=== PATIENT | female | born 1945 | race Caucasian/White ===

== ENCOUNTER 2017-04-02 07:50 | Inpatient (IN) | payer MEDICARE, SELFPAY ==
[2017-04-02] VITALS (15 sets, daily range): BP systolic 105–165; BP diastolic 44–73; PULSE 68–99; RESP 15–22; TEMP 37.2–38.1; O2SAT 88–98; BMI 31.2; BMI 32.3; BMI 32.4
--- NOTE | 2017-04-02 08:03 | EKG12_ITS ---
Test Reason : COLD S/SX Blood Pressure : / mmHG Vent. Rate : 092 BPM Atrial Rate : 092 BPM P-R Int : 158 ms QRS Dur : 088 ms QT Int : 364 ms P-R-T Axes : 036 -48 069 degrees QTc Int : 450 ms Normal sinus rhythm Left anterior fascicular block Inferior infarct , age undetermined Poor R wave progression Abnormal ECG Confirmed by EMILY RABAGO, CHANCE ([id number]), newspaper copy editor GABRIELLA BINGHAM ([id number]) on 04/03/2017 9:47:58 AM Referred By: SHOLA Confirmed By:CHANCE DIAZ MD
--- NOTE | 2017-04-02 08:03 | RAD_ITS ---
STUDY: X-RAY CHEST REASON FOR EXAM: Female, 71 years old. Fever and productive cough. TECHNIQUE: Single AP portable view of the chest. COMPARISON: Comparison is made with prior study dated July 25, 2011. FINDINGS: EKG electrodes are seen. The lungs are clear and expanded. Scattered calcified granulomas. There is no demonstrated pleural abnormality. Normal size heart. Normal mediastinum and lynsey. Normal visualized pulmonary arteries. There is atherosclerotic calcification of the aortic arch with tortuosity. Normal visualized thoracic spine. Normal visualized ribs, clavicles, and shoulders. There is no demonstrated abnormality of the visualized soft tissue structures of the upper abdomen. RAD/Chest 1 View (Portable) IMPRESSION: Normal x-ray examination of the chest. Electronically Signed: Nawaf Samayoa MD at 8:47 EST Tel [phone], Service support ,
--- NOTE | 2017-04-02 08:28 | ED.VISSUMM ---
- ER Visit Summary Date of Service: 04/02/17 Chief Complaint: Flulike symptoms that started History of Present Illness: The patient is a 71 F who presents because of increased shortness of breath since yesterday. She states she had flulike symptoms that started . She did not get a Pneumovax or influenza vaccine this year. She states she has not had time to see her doctor. She is a former smoker. She complained of headache, runny nose, nonproductive cough, shortness of breath initially. She states she felt better yesterday, Sunday. Today she states she feels worse and is coughing up green cade sputum. She complains of shortness of breath at rest and increased shortness of breath with activity. She does complain of subjective fever with chills. She does report headache and the headache is worse with coughing. She still complains of nasal congestion. She denies any leg pain, swelling or discoloration. She has no history of PE or DVT and denies any risk factors. Physical Examination: Vital signs remarkable for blood pressure 105/44, which is low for patient. Heart rates 99 with a temperature of 100.5. She appears ill. She is tachypnic. Head is atraumatic normocephalic. Pupils are equal round reactive. Extraocular muscles are intact. TMs are pearly white with landmarks noted. Nares patent with no drainage. Posterior pharynx without erythema or exudate. Uvula is midline. There is no dysphonia or dysphasia. Trachea is midline. There is no stridor with auscultation of the neck. Heart is rapid and regular without murmur, gallop or rub. Lungs are remarkable for diminished breath sounds bilaterally with rales at the bases more so right than left. Abdomen is soft nontender. Is no palpable subtle mass abdominal bruit. Lower extremity exam reveals no swelling or discoloration. DP pulses palpable bilaterally. Neuro exam is nonfocal. Test Results: EKG reveals a sinus rhythm rate of 92 with a left anterior fascicular block and decreased anterior force. Portable chest x-ray reveals normal cardiac silhouette and minimal chronic changes with no widening the mediastinum or perihilar lymphadenopathy. White count is 8.5 thousand with 84 segs no bands 8 lymphs. BMP is marked for glucose 138. Hepatic profile is unremarkable. Lactate elevated 2.7. Emergency Department Course and Treatment: Evaluate patient's symptoms who has multiple medical problems a EKG was obtained to rule out acute ischemia, chest x-ray to evaluate for pneumonia and appropriate blood work to assess for severe sepsis. And she is febrile she received acetaminophen p.o. Treatment Plan: This informed me that patient's pulse ox dropped 80% on room air at rest. Her influenza screen returned negative. Therefore, she was treated with levofloxacin and hospitalist was called for admission to the hospital Disposition: Mid hospital will discuss placement suggest PCU Impression: 1. Acute respiratory infection with hypoxia (respiratory failure) 2. Lactic acidosis, 2.7 3. Hypotension initially in patient with history of hypertension 4. History of CVA 5. History of hypercholesterolemia This note was generated with [employer] dictation software. It may contain incorrect words, spelling, and punctuation that were not noted in review of the chart prior to signing ED Disposition - Plan for ED Patient: Chief Complaint: Cold Sx Referrals: Agus Malik MD [Primary Care Provider] -
[2017-04-02] MEDS: Acetaminophen 500 MG Tablet PO (08:40)
[2017-04-02 08:49] LABS: Absolute Lymphocyte Count 0.65 X10^3/ul (0.83-4.51); Absolute Neutrophil Count 7.1 X10^3/uL (2.0-7.7); Basophil# 0.02 X10^3/uL; Basophil% 0.2 % (0-1); Hematocrit 37.9 % (37-47); Hemoglobin 12.6 g/dl (12.0-15.0); Lymphocyte # 0.65 X10^3/ul (4.0); Lymphocyte % 7.7 % (19-41); Mean Corp Hgb Conc 33.2 g/gl (32-36); Mean Corpuscular Volume 93.3 fL (81-99); Mean Platelet Vol. 9.3 fl (6.2-12.0); Monocyte# 0.72 X10^3/uL; Monocyte% 8.5 % (0-10); Neutrophil # 7.07 X10^3/uL (2.7-7.7); Neutrophil % 83.5 % (47-70); Platelet Count 320 K/mm3 (150-450); RBC Distribution Width CV 13.8 % (11.6-14.6); RBC Distribution Width SD 45.7 fl (35.1-43.9); Red Blood Count 4.06 M/mm3 (4.2-5.4); White Blood Count 8.5 K/mm3 (4.4-11.0)
[2017-04-02 08:57] LABS: POSITIVE COUNT NO; POSITIVE DIFFERENTIAL NO; POSITIVE MORPHOLOGY NO
[2017-04-02 08:59] LABS: ALB/GLOB Ratio 0.8 RATIO (0.9-2.4); AST(SGOT) 28 U/L (15-37); Alanine Aminotransfer ALT/SGPT 23 U/L (13-56); Albumin, Serum 3.6 g/dL (3.2-5.0); Alkaline Phosphatase 85 U/L (45-117); Anion Gap 8 (5-15); BUN 14 mg/dL (7-18); BUN/Creat Ratio 15.9 RATIO (10-20); Calcium,Total 8.9 mg/dL (8.5-10.1); Chloride 106 mmol/L (98-107); Creatinine, Serum 0.88 mg/dL (0.55-1.02); EST Glomerular Filtration Rate 67 mL/min (>60); Est Glom Filt Rate - Afr Amer 81 mL/min (>60); Estimated Creatinine Clearance 41.51 ml/min; Globulin 4.6 g/dL (2.2-4.2); Glucose 138 mg/dL (74-106); Potassium 3.9 mmol/L (3.5-5.1); Protein, Total 8.2 g/dL (6.4-8.2); Sodium Level 138 mmol/L (136-145)
[2017-04-02 09:23] LABS: Lactic Acid 2.7 mmol/L (0.4-2.0)
--- NOTE | 2017-04-02 09:25 | ED.RN ---
PT PLACED ON 2L NC FOR LOW O2 SAT AT REST. O2 IS 93 AT THIS TIME.
[2017-04-02] MEDS: 0.9% Normal Saline 1,000 ML 250 ML IV ×4 (09:49→21:44)
[2017-04-02 09:56] LABS: International Normalized Ratio 1.1; Prothrombin Time (Protime)PT. 13.3 SECONDS (11.7-14.9)
[2017-04-02 09:57] LABS: Partial Thromboplast Time 32.5 Seconds (24.1-36.2)
[2017-04-02 12:21] LABS: Bacteria 0 SEEN /hpf (None Seen); Mucous, Urine 0 SEEN /hpf (<or=2+); Red Blood Cells-Urine 0 SEEN /hpf (0-5); White Blood Cells 0 SEEN /hpf (0-5)
[2017-04-02 12:24] LABS: Color, Urine Yellow (Yellow); Glucose, Dipstick 50 mg/dl (Normal); Ketone-Dipstick Negative (Negative); Leukocyte Esterase-Dipstick Negative /ul (Negative); Nitrite-Dipstick Negative (Negative); Occult Blood-Urine Negative /ul (Negative); Protein-Dipstick 30 mg/dl (Negative); Specific Gravity, Urine 1.015 (1.002-1.030); Urine Bilirubin Dipstick Negative (Negative); Urine Clarity Clear (Clear); Urine Urobilinogen Normal (Normal)
--- NOTE | 2017-04-02 12:29 | PCM.PN.HOSP ---
Vitals/I&O's: Vital Signs Temp Pulse Resp BP Pulse Ox 99.2 F H 94 18 113/67 97 04/02/17 11:19 04/02/17 11:19 04/02/17 11:19 04/02/17 11:19 04/02/17 11:19 Oxygen Flow Rate 2 Oxygen Delivery Method Nasal Cannula Weight: 75.16 kg Body Mass Index (BMI) 32.3 Laboratory Results 04/02/17 11:58: Urine Color Pending, Urine Clarity Pending, Urine pH Pending, Ur Specific [place] Pending, Urine Protein Pending, Urine Glucose (UA) Pending, Urine Ketones Pending, Urine Occult Blood Pending, Urine Nitrite Pending, Urine Bilirubin Pending, Urine Urobilinogen Pending, Ur Leukocyte Esterase Pending, Urine RBC Pending, Urine WBC Pending, Ur Squamous Epith Cells Pending, Urine Bacteria Pending, Urine Mucus Pending Current Medications Enoxaparin Sodium (Lovenox) 40 mg SC DAILY@1000 JOHANA Sodium Chloride () 1,000 mls @ 250 mls/hr IV .Q4H [facility] Last Admin: 04/02/17 09:49 Dose: 250 mls/hr Influenza Virus Vaccine Quadrival (Fluarix/Fluzone) 0.5 ml IM .ONCE ONE Stop: 04/03/17 10:01 Magnesium Hydroxide (Milk Of Magnesia) 30 ml PO DAILY PRN PRN PRN Reason: Constipation
[2017-04-02 12:37] LABS: Reflex Lactate? Y
[2017-04-02 12:46] LABS: Squamous Epithelial Cells - UA 0-5 SEEN /hpf (5-10)
--- NOTE | 2017-04-02 12:46 | PCM.HP.STD ---
Problem List (1) Bronchitis Status: Acute (2) Acute respiratory failure Status: Acute (3) Hypertension Status: Chronic (4) Dyslipidemia Status: Acute History of Present Illness Date of Admission: 04/02/17 Chief Complaint: Nasal congestion, cough, shortness of breath The patient is a 71 year old F who presented to the emergency room due to prior upper respiratory tract symptoms for the past 4 days and now she has significant cough, shortness of breath or and wheezing. In the emergency room she was noted to be hypoxic, chest x-ray did not showed no pneumonia, her rapid influenza a and B were negative . She was placed on bronchodilators and IV steroids and we are placing her in the hospital for further management. When I saw her in the ED she was alert and oriented to time place and person and she did appear to be in mild to moderate distress, she is nontoxic appearing. Past Medical History Past Medical History (Chronic Problems): Chronic Problems Hypertension (Chronic) Allergies ibuprofen Adverse Reaction (Verified 04/02/17 07:53) Nausea Home Medications: Ambulatory Orders Medication Instructions Recorded Citalopram Hydrobromide 20 mg PO DAILY 04/02/17 [Citalopram HBr] Lisinopril [Zestril] 5 mg PO DAILY 04/02/17 Multivit-Min/Iron/Folic/Lutein 1 each PO DAILY 04/02/17 [Centrum Silver Women Tablet] Simvastatin [Zocor] 40 mg PO DAILY 04/02/17 Smoking Status: Former smoker Review of Systems Comment: All Systems were reviewed with pertinent positives mentioned in the HPI above. VTE Information - Inpt Only VTE Present on Admission: No VTE Mechan Device Prophylaxis: SCD's VTE Pharm Prophylaxis ordered?: No VTE Suspected: Suspected DVT Patient Problems: Active and Suspected Problems Bronchitis (Acute) Acute respiratory failure (Acute) Dyslipidemia (Acute) - Physical Exam General: Alert, Oriented x3 HEENT: Atraumatic Oral: Moist Mucosa Neck: Supple, No JVD Lungs: Wheezes Cardiovascular: Regular rate, Normal S1, Normal S2 Abdomen: Bowel Sounds Present, Soft, Non Tender, Non-Distended Extremities: No edema Neurological: Cranial nerves II-XII grossly intact, Neuro grossly intact, Motor Exam 5/5 strength throughout Psych/Mental Status: Normal Affect Vital Signs Temp Pulse Resp BP Pulse Ox 99.2 F H 68 18 113/67 97 04/02/17 11:19 04/02/17 11:40 04/02/17 11:19 04/02/17 11:19 04/02/17 11:40 Oxygen Flow Rate 2 Oxygen Delivery Method Nasal Cannula Weight: 75.16 kg Body Mass Index (BMI) 32.3 Laboratory Tests Past 24 Hrs 04/02/17 11:58 Urine Color Yellow Urine Clarity Clear Urine pH 5.0 Ur Specific [place] 1.015 Urine Protein 30 H Urine Glucose (UA) 50 H Urine Ketones Negative Urine Occult Blood Negative Urine Nitrite Negative Urine Bilirubin Negative Urine Urobilinogen Normal Ur Leukocyte Esterase Negative Urine RBC 0 SEEN Urine WBC 0 SEEN Ur Squamous Epith Cells 0-5 SEEN Urine Bacteria 0 SEEN Urine Mucus 0 SEEN Assessment/Plan Active and Suspected Problems Bronchitis (Acute) Acute respiratory failure (Acute) Dyslipidemia (Acute) 1. Acute respiratory failure with hypoxia; continue on supplemental oxygen and wean as tolerated. 2. Acute bronchitis; if need to have rapid influenza a and B tests are negative, her signs and symptoms are consistent with possible influenza infection, we will place her on Tamiflu and obtain respiratory sample for further influenza studies. We will place her on Bronchodilators, IV steroids and oral antibiotics. 3. Lactic acidosis; this is from her hypoxic status rather than from sepsis. 4. Essential hypertension; the patient is trending hypotensive at this time and will hold off on her antihypertensive agents. 5. DVT Prophylaxis with Lovenox. Code Visit Inpatient E&M: 71941 Init Hosp L3
[2017-04-02 13:25] LABS: Lactic Acid 1.4 mmol/L (0.4-2.0)
[2017-04-02] MEDS: MethylPREDNISolone 125 MG/2 ML Vial 60 MG IV ×2 (15:30→21:36)
[2017-04-02] MEDS: Oseltamivir Phosphate 30 MG Capsule PO ×2 (15:30→21:36)
[2017-04-02 16:44] LABS: Lactic Acid 0.7 mmol/L (0.4-2.0)
[2017-04-02] MEDS: Acetaminophen 325 MG Tablet 650 MG PO (18:05)
[2017-04-02] MEDS: Atorvastatin Calcium 20 MG Tablet PO (21:36)
[2017-04-03] VITALS (8 sets, daily range): BP systolic 136–141; BP diastolic 71–76; PULSE 70–88; RESP 18–20; TEMP 36.4–36.8; O2SAT 90–97
[2017-04-03] MEDS: 0.9% Normal Saline 1,000 ML 250 ML IV (02:25)
[2017-04-03] MEDS: Acetaminophen 325 MG Tablet 650 MG PO (03:04)
[2017-04-03] MEDS: MethylPREDNISolone 125 MG/2 ML Vial 60 MG IV (06:21)
[2017-04-03 06:59] LABS: Absolute Lymphocyte Count 1.19 X10^3/ul (0.83-4.51); Absolute Neutrophil Count 8.8 X10^3/uL (2.0-7.7); Basophil# 0.03 X10^3/uL; Basophil% 0.3 % (0-1); Hematocrit 32.4 % (37-47); Hemoglobin 10.6 g/dl (12.0-15.0); Lymphocyte # 1.19 X10^3/ul (4.0); Lymphocyte % 11.5 % (19-41); Mean Corp Hgb Conc 32.7 g/gl (32-36); Mean Corpuscular Hgb 30.3 pg (27.0-32.0); Mean Corpuscular Volume 92.6 fL (81-99); Mean Platelet Vol. 9.9 fl (6.2-12.0); Monocyte# 0.33 X10^3/uL; Monocyte% 3.2 % (0-10); Neutrophil # 8.82 X10^3/uL (2.7-7.7); Neutrophil % 84.9 % (47-70); POSITIVE COUNT NO; POSITIVE DIFFERENTIAL NO; Platelet Count 259 K/mm3 (150-450); RBC Distribution Width CV 13.7 % (11.6-14.6); White Blood Count 10.4 K/mm3 (4.4-11.0)
[2017-04-03 07:15] LABS: Anion Gap 8 (5-15); BUN 11 mg/dL (7-18); BUN/Creat Ratio 20.7 RATIO (10-20); Calcium,Total 8.3 mg/dL (8.5-10.1); Chloride 112 mmol/L (98-107); Creatinine, Serum 0.53 mg/dL (0.55-1.02); EST Glomerular Filtration Rate 120 mL/min (>60); Est Glom Filt Rate - Afr Amer 145 mL/min (>60); Estimated Creatinine Clearance 36.53 ml/min; Glucose 142 mg/dL (74-106); Potassium 3.7 mmol/L (3.5-5.1); Sodium Level 142 mmol/L (136-145)
--- NOTE | 2017-04-03 09:19 | PCM.DC ---
- Discharge Diagnoses Current Active Problems: Current Active and Chronic Problems Bronchitis (Acute) Acute respiratory failure (Acute) Hypertension (Chronic) Dyslipidemia (Acute) You will use the following diet at home:: Regular Discharge Activity: Return to Normal Activity Allergies/Adverse Reactions: Allergies ibuprofen Adverse Reaction (Verified 04/02/17 07:53) Nausea Medications to take at Discharge Citalopram Hydrobromide [Citalopram HBr] 20 mg PO DAILY 04/02/17 Lisinopril [Zestril] 5 mg PO DAILY 04/02/17 Multivit-Min/Iron/Folic/Lutein [Centrum Silver Women Tablet] 1 each PO DAILY 04/02/17 Simvastatin [Zocor] 40 mg PO DAILY 04/02/17 Levofloxacin [Levaquin] 750 mg PO Q48 #3 tab 04/03/17 Prednisone [Deltasone] 40 mg PO DAILY #5 tab 04/03/17 The following prescriptions were given: Levofloxacin [Levaquin] 750 mg PO Q48 #3 tab Prednisone [Deltasone] 40 mg PO DAILY #5 tab Primary Care Physician: Agus Malik MD [Primary Care Provider] - Proposed Discharge Date: 04/03/17
--- NOTE | 2017-04-03 09:20 | DS.PCM_ITS ---
Discharge Date and Diagnosis Date of Admission: 04/02/17 Date of Discharge: 04/03/17 - Primary Discharge Diagnosis Active and Suspected Problems Bronchitis (Acute) Acute respiratory failure (Acute) Dyslipidemia (Acute) - Secondary Discharge Diagnosis Chronic Problems Hypertension (Chronic) Hospital Course and Treatment Summary of Care Provided: The patient is a 71 year old F who presented to the emergency room due to prior upper respiratory tract symptoms for the past 4 days and now she has significant cough, shortness of breath or and wheezing. In the emergency room she was noted to be hypoxic, chest x-ray did not showed no pneumonia, her rapid influenza a and B were negative . She was placed on bronchodilators and IV steroids and we are placing her in the hospital for further management. She was started on Tamiflu for empiric Influenza therapy and respiratory panel sent and showed human [place] virus. Patient improved significantly within 24 hours he was transitioned to oral antibiotic and prednisone and discharged home in a stable condition. She was recommended to follow with the primary care doctor in 1-2 weeks. On exam at the time of discharge; vital signs were stable. He was alert and oriented to time place and person. He did not appear to be any form of distress. S1 and S2 heard no murmur or gallop Lung exam was clear to auscultation with no adventitious sounds. Abdomen was soft nontender with normal bowel sounds. extremity exam did not reveal any edema, palpable pulses bilaterally. Neurologic exam was grossly intact. Discharge Diet: No Restrictions Discharge Activity: Return to Normal Activity Home Medications: Medications to take at Discharge Citalopram Hydrobromide [Citalopram HBr] 20 mg PO DAILY 04/02/17 Lisinopril [Zestril] 5 mg PO DAILY 04/02/17 Multivit-Min/Iron/Folic/Lutein [Centrum Silver Women Tablet] 1 each PO DAILY 07/13 Simvastatin [Zocor] 40 mg PO DAILY 04/02/17 Levofloxacin [Levaquin] 750 mg PO Q48 #3 tab 04/03/17 Prednisone [Deltasone] 40 mg PO DAILY #5 tab 04/03/17 Following Prescrptions Were Given to Patient: Levofloxacin [Levaquin] 750 mg PO Q48 #3 tab Prednisone [Deltasone] 40 mg PO DAILY #5 tab Primary Care Physician: Agus Malik MD [Primary Care Provider] - Disposition: Home Patient Condition:: Good Meaningful Use Info Meaningful Use Diagnoses (Choose all that apply): None applicable
[2017-04-03] MEDS: Lisinopril 5 MG Tablet PO (10:16)
[2017-04-03] MEDS: Oseltamivir Phosphate 30 MG Capsule PO (10:16)
[2017-04-03] MEDS: Citalopram 20 MG Tablet PO (10:16)
--- NOTE | 2017-04-03 10:43 | CASEMGMT ---
RN SIMÓN Face to Face with patient for initial transition planning/care coordination assessment. RN CM introduced self and role at [facility]. Patient sitting in chair, alert and oriented. Patient willing to participate in assessment and is able to answer all questions appropriately. Care providers, pharmacy, and demographics verified. See link attached. Patient wishes to discharge home, denies need for home health at this time. Patient states she has no further needs or concerns at this time. CM to follow for discharge planning needs that may arise. Disposition Plan: Patient to discharge home with family support and follow-up plans in place
== END 2017-04-03 17:27 | disposition home or self-care (01) | DRG 202 ==
LOC: ED 08:13 → MS3 10:29
PROVIDERS: Admitting Provider Internal Medicine; Emergency Provider Emergency Medicine; Family Provider Family Medicine; PCP Family Medicine; Visit Provider Internal Medicine
DX: J20.9 Acute bronchitis, unspecified (principal); J96.01 Acute respiratory failure with hypoxia; E87.2 Acidosis; Z87.891 Personal history of nicotine dependence; E78.5 Hyperlipidemia, unspecified; I10 Essential (primary) hypertension; Z23 Encounter for immunization
CPT/HCPCS: 36415; 71045; 80048; 80053; 81001; 83605; 85025; 85610; 85730; 87040; 87086; 87088; 87633; 87804; 93005; 99285; J7030; J7040; J7050; 90686; A4216

== ENCOUNTER → 2017-04-12 11:28 | Outpatient (CLI) | payer MEDICARE, SELFPAY ==
[2017-04-12 12:11] LABS: Absolute Lymphocyte Count 2.58 X10^3/ul (0.83-4.51); Absolute Neutrophil Count 5.9 X10^3/uL (2.0-7.7); Basophil# 0.01 X10^3/uL; Basophil% 0.1 % (0-1); Eosinophil# 0.16 X10^3/uL; Eosinophils% 1.7 % (0-5); Hematocrit 37.1 % (37-47); Hemoglobin 12.4 g/dl (12.0-15.0); Lymphocyte # 2.58 X10^3/ul (4.0); Lymphocyte % 27.1 % (19-41); Mean Corp Hgb Conc 33.4 g/gl (32-36); Mean Corpuscular Volume 92.8 fL (81-99); Mean Platelet Vol. 9.2 fl (6.2-12.0); Monocyte# 0.81 X10^3/uL; Monocyte% 8.5 % (0-10); Neutrophil # 5.92 X10^3/uL (2.7-7.7); Neutrophil % 62.1 % (47-70); Platelet Count 375 K/mm3 (150-450); RBC Distribution Width CV 14.3 % (11.6-14.6); RBC Distribution Width SD 47.2 fl (35.1-43.9); White Blood Count 9.5 K/mm3 (4.4-11.0)
[2017-04-12 12:15] LABS: POSITIVE COUNT NO; POSITIVE DIFFERENTIAL NO; POSITIVE MORPHOLOGY NO
[2017-04-12 12:39] LABS: Anion Gap 5 (5-15); BUN 20 mg/dL (7-18); Calcium,Total 9.2 mg/dL (8.5-10.1); Chloride 106 mmol/L (98-107); Creatinine, Serum 0.65 mg/dL (0.55-1.02); EST Glomerular Filtration Rate 96 mL/min (>60); Est Glom Filt Rate - Afr Amer 116 mL/min (>60); Glucose 89 mg/dL (74-106); Potassium 4.1 mmol/L (3.5-5.1); Sodium Level 140 mmol/L (136-145)
== END ==
PROVIDERS: Family Provider Family Medicine; PCP Family Medicine; Visit Provider Family Medicine
DX: Z01.818 Encounter for other preprocedural examination (principal)
CPT/HCPCS: 36415; 80048; 85025

== ENCOUNTER 2017-05-03 18:07 | Observation (INO) | payer MEDICARE, SELFPAY ==
[2017-05-03 18:08] VITALS: BP 113/76; PULSE 97; RESP 16; TEMP 36.3; O2SAT 98; BMI 48.8
[2017-05-03] MEDS: Ondansetron 4 MG/2 ML Vial IV (19:00)
[2017-05-03 19:07] LABS: Absolute Lymphocyte Count 3.14 X10^3/ul (0.83-4.51); Absolute Neutrophil Count 4.1 X10^3/uL (2.0-7.7); Basophil# 0.02 X10^3/uL; Basophil% 0.2 % (0-1); Eosinophils% 2.4 % (0-5); Hematocrit 28.6 % (37-47); Hemoglobin 9.2 g/dl (12.0-15.0); Lymphocyte # 3.14 X10^3/ul (4.0); Lymphocyte % 37.8 % (19-41); Mean Corp Hgb Conc 32.2 g/gl (32-36); Mean Corpuscular Hgb 30.5 pg (27.0-32.0); Mean Corpuscular Volume 94.7 fL (81-99); Mean Platelet Vol. 8.3 fl (6.2-12.0); Monocyte# 0.81 X10^3/uL; Monocyte% 9.7 % (0-10); Neutrophil # 4.06 X10^3/uL (2.7-7.7); Neutrophil % 48.9 % (47-70); Platelet Count 420 K/mm3 (150-450); RBC Distribution Width CV 14.1 % (11.6-14.6); RBC Distribution Width SD 48.4 fl (35.1-43.9); Red Blood Count 3.02 M/mm3 (4.2-5.4); White Blood Count 8.3 K/mm3 (4.4-11.0)
[2017-05-03 19:08] LABS: POSITIVE COUNT NO; POSITIVE DIFFERENTIAL NO; POSITIVE MORPHOLOGY NO
--- NOTE | 2017-05-03 19:09 | ED.VISSUMM ---
- ER Visit Summary Date of Service: 05/03/17 Chief Complaint: [] Postop left hip replacement unable to rehab at home intractable pain History of Present Illness: The patient is a 71 F [] patient had left hip replacement surgery recently she was supposed to rehab at home discharged directly after surgery, since that she has been unable to rehab at home due to intractable pain she cannot walk on her own, she spoke with her orthopedic surgeons at [facility] and was told to come to the emergency department for admission and fpc placement for rehab. The patient's had no fever no cough no trauma she simply states she cannot move her leg she cannot do much she is almost carried to the commode by family due to the pain Physical Examination: [] Is resting in the bed she is in no distress she cannot move the hip as she when she does she has pain head neck unremarkable lungs sound clear the abdomen soft nontender the left hip incision is intact there is no warmth drainage or signs of infection she has moderate to severe pain with any type of range of motion to the hip she can barely lift her foot off the bed and has to fall right down back to the bed she has minimal flexion at the knee any type of movement of the hip left causes pain neurovascular exam to the lower extremity bilaterally is normal pulses sensation cap refill she can dorsi and plantarflex both ankles the right lower legs unremarkable Test Results: [] Emergency Department Course and Treatment: [] And on different pain medicines she was allergic to Percocet was put on [place] with really little relief she has no one at home to help her rehab she is failed outpatient therapy at this time screening labs are obtained x-rays will contact the hospitalist for admission for further management Treatment Plan: [] Disposition: [] Admits stable Impression: [] Status post left hip replacement, intractable pain, failed outpatient management, This note was generated with [employer] dictation software. It may contain incorrect words, spelling, and punctuation that were not noted in review of the chart prior to signing ED Disposition - Plan for ED Patient: Chief Complaint: Lower Extremity Injury Referrals: Agus Malik MD [Primary Care Provider] -
--- NOTE | 2017-05-03 19:20 | RAD_ITS ---
STUDY: X-RAY - PELVIS AND LEFT HIP REASON FOR EXAM: Female, 71 years old. Postop pain TECHNIQUE: Radiological exam, hip, unilateral, with pelvis when performed; 2 or 3 views. COMPARISON: 10/04/2016 FINDINGS: The patient is status post left arthroplasty. The hardware is intact and alignment is satisfactory. There is lucency in the greater trochanter, consistent with a nondisplaced fracture. This appears subacute in nature. Comparison with any recent prior examinations is recommended. The remainder of the visualized osseous structures are intact. RAD/Hip Min 2 Views (Portable) IMPRESSION: Left hip arthroplasty with intact hardware and satisfactory alignment. Nondisplaced fracture of the greater trochanter which appears subacute. Correlation with any recent prior examinations is recommended. Electronically Signed: Vishal Mcdaniel, at 20:18 EST Tel , Service support ,
[2017-05-03 19:28] LABS: Anion Gap 8 (5-15); BUN 16 mg/dL (7-18); BUN/Creat Ratio 21.2 RATIO (10-20); Calcium,Total 8.7 mg/dL (8.5-10.1); Chloride 104 mmol/L (98-107); Creatinine, Serum 0.76 mg/dL (0.55-1.02); EST Glomerular Filtration Rate 80 mL/min (>60); Est Glom Filt Rate - Afr Amer 97 mL/min (>60); Estimated Creatinine Clearance 36.53 ml/min; Glucose 124 mg/dL (74-106); Potassium 3.9 mmol/L (3.5-5.1); Sodium Level 140 mmol/L (136-145)
[2017-05-03 20:29] VITALS: BP 146/75; PULSE 78; RESP 16; O2SAT 97
[2017-05-03 20:48] LABS: Bacteria 0 SEEN /hpf (None Seen); Red Blood Cells-Urine 0 SEEN /hpf (0-5)
[2017-05-03 21:30] LABS: Color, Urine Yellow (Yellow); Glucose, Dipstick Normal (Normal); Ketone-Dipstick Negative (Negative); Leukocyte Esterase-Dipstick 25 /ul (Negative); Nitrite-Dipstick Negative (Negative); Occult Blood-Urine Negative /ul (Negative); Protein-Dipstick Negative (Negative); Specific Gravity, Urine 1.015 (1.002-1.030); Urine Bilirubin Dipstick Negative (Negative); Urine Clarity Clear (Clear); Urine Urobilinogen 1 mg/dl (Normal)
[2017-05-03 21:54] LABS: Hyaline Cast 0-5 SEEN /lpf (0-5)
[2017-05-03 21:55] LABS: Squamous Epithelial Cells - UA 0-5 SEEN /hpf (5-10)
[2017-05-03 21:56] LABS: White Blood Cells 0-5 SEEN /hpf (0-5)
[2017-05-03 21:57] LABS: Mucous, Urine 4+ /hpf (<or=2+)
[2017-05-03 22:01] VITALS: BP 108/71; PULSE 78; RESP 16; O2SAT 98
[2017-05-03 22:14] VITALS: BP 108/71; PULSE 78; RESP 16; O2SAT 98
--- NOTE | 2017-05-03 22:27 | PCM.HP.STD ---
Problem List (1) Intractable left hip pain Status: Acute (2) Status post total hip replacement, left Status: Acute (3) Depression Status: Chronic (4) Dyslipidemia Status: Chronic (5) Hypertension Status: Chronic History of Present Illness Date of Admission: 05/03/17 Chief Complaint: Left hip pain, debility. The patient is a 71 year old F with past medical history as mentioned above who underwent total hip replacement on April 24, 2017 at [facility] presented to the emergency room because of intractable left hip pain with weakness and debility. Since she had her surgery, she has been having left hip pain, dull aching pain, 6-7 out of 10 in severity, not radiating, aggravated by standing and walking, relieved by rest and no associated symptoms. She was discharged from the [facility] on Percocet for pain control but she had an allergic reaction to. She continued to have intractable left hip pain and she went to her PCPs office who prescribed Vicodin for her which seemed to be working. Patient lives at home and she mentioned that she has not been able to ambulate with a walker because of the intractable left hip pain. She is not able to take care of herself and she mentioned that her pain is not well controlled. She denies fever or chills. She denied trauma or mechanical fall. When I examined her left leg, she complained of minimal pain on the left calf. in the emergency room, her vital signs were stable. Her routine blood work was remarkable for hemoglobin of 9.2 g/dL, otherwise normal. Urinalysis showed no evidence of UTI. X-ray of the left hip revealed intact left hip arthroplasty nondisplaced fracture of the greater trochanter which could be subacute. She is being admitted for intractable left hip pain, probable subacute nondisplaced fracture of the greater trochanter and anemia. Past Medical History Past Medical History (Chronic Problems): Chronic Problems Depression (Chronic) Dyslipidemia (Chronic) Hypertension (Chronic) Allergies ibuprofen Adverse Reaction (Verified 04/02/17 07:53) Nausea PERCOCET Allergy (Uncoded 05/03/17 18:08) Anaphylaxis Home Medications: Ambulatory Orders Medication Instructions Recorded Citalopram Hydrobromide 20 mg PO DAILY 04/02/17 [Citalopram HBr] Lisinopril [Zestril] 5 mg PO DAILY 04/02/17 Multivit-Min/Iron/Folic/Lutein 1 each PO DAILY 04/02/17 [Centrum Silver Women Tablet] Simvastatin [Zocor] 40 mg PO DAILY 04/02/17 Nystatin 5 ml PO 4X/DAY 05/03/17 Pantoprazole Sodium [Protonix] 40 mg PO DAILY 05/03/17 Surgical History: total hip arthroplasty Psychiatric History: No pertinent psych hx Lives: With Family Smoking Status: Former smoker Alcohol: None Drugs: None - *Family History Maternal History Items: No pertinent history Paternal History Items: No pertinent history Review of Systems Constitutional: Reports: Weakness. Denies: Anorexia, Chills, Fever Eyes: Denies: Blurred vision, Double vision, Drainage, Redness HEENT: Denies: Difficulty Hearing, Ear Pain, Eye Pain, Nasal bleeding, Sore Throat Cardiovascular: Denies: Chest Pain, Chest Tightness, Edema, Heaviness, Palpitations, Paroxysmal Noc. Dyspnea, Syncope Respiratory: Denies: Cough, Pleuritic Pain, Shortness of Breath, Sputum production, Wheezing Gastrointestinal: Denies: Abdominal Pain, Diarrhea, Dyspepsia, Nausea, Vomiting Genitourinary: Denies: Dysuria, Frequency, Hematuria Musculoskeletal: Reports: Joint Pain, Leg Pain. Denies: Arm Pain, Back Pain, Foot Pain Skin: Denies: Dryness, Rash Neurological: Denies: Balance problems, Blurred vision, Change in Speech, Slurred speech, Focal weakness, Headaches, Incoordination Psychiatric: Reports: Depression. Denies: Anxiety Endocrine: Denies: Change in Body Habitus, Polydipsia VTE Information - Inpt Only VTE Present on Admission: No VTE Mechan Device Prophylaxis: None VTE Pharm Prophylaxis ordered?: Yes Patient Problems: Active and Suspected Problems Intractable left hip pain (Acute) Status post total hip replacement, left (Acute) - Physical Exam General: Alert, Oriented x3, Cooperative, No apparent distress HEENT: Atraumatic, PERRLA, EOMI Oral: Moist Mucosa, No Gingival or Mucosal Lesions/ Ulcerations Neck: Supple, No JVD, Negative Carotid Bruits, Trachea Midline, Thyroid Normal Size and Texture Lungs: Clear to auscultation, No rhonchi, No wheeze, No rales, Diminished Cardiovascular: Regular rate, Regular Rhythm, Normal S1, Normal S2, No murmurs, PMI Normal Abdomen: Bowel Sounds Present, Soft, Non Tender, Non-Distended, No Hepato-splenomegaly Extremities: No clubbing, No cyanosis, No edema Skin: No rashes, No breakdown Musculoskeletal: No Tenderness to Palpation of Joints or Extremities Lymphatic: No Cervical, Supraclavicular, or Inguinal Adenopathy Neurological: Cranial nerves II-XII grossly intact, Motor Exam 5/5 strength throughout Psych/Mental Status: Normal Affect, Appropriate, Alert and oriented to time, place, person, mood and affect Vital Signs Temp Pulse Resp BP Pulse Ox 97.3 F L 78 16 108/71 98 05/03/17 18:08 05/03/17 22:14 05/03/17 22:14 05/03/17 22:14 05/03/17 22:14 Laboratory Tests 05/03/17 05/03/17 05/03/17 Range/Units 20:40 18:50 18:50 WBC 8.3 (4.4-11.0) K/mm3 RBC 3.02 L (4.2-5.4) M/mm3 Hgb 9.2 L (12.0-15.0) g/dl Hct 28.6 L (37-47) % MCV 94.7 (81-99) fL MCH 30.5 (27.0-32.0) pg MCHC 32.2 (32-36) g/gl RDW 14.1 (11.6-14.6) % RDW Differential 48.4 H (35.1-43.9) fl Plt Count 420 (150-450) K/mm3 MPV 8.3 (6.2-12.0) fl Immature Gran % (Auto) 1.000 H (0.0-0.9) % Neut % (Auto) 48.9 (47-70) % Lymph % (Auto) 37.8 (19-41) % [place] % (Auto) 9.7 (0-10) % Eos % (Auto) 2.4 (0-5) % Baso % (Auto) 0.2 (0-1) % Absolute Neuts (auto) 4.1 (2.0-7.7) X10^3/uL Absolute Lymphs (auto) 3.14 (0.83-4.51) X10^3/ul Total Counted Not Reportable Sodium 140 (136-145) mmol/L Potassium 3.9 (3.5-5.1) mmol/L Chloride 104 (98-107) mmol/L Carbon Dioxide 28.0 (21.0-32.0) mmol/L Anion Gap 8 (5-15) BUN 16 (7-18) mg/dL Creatinine 0.76 (0.55-1.02) mg/dL Estim Creat Clear Calc 36.53 ml/min Est GFR (MDRD) Af Amer 97 (>60) mL/min Est GFR (MDRD) Non-Af 80 (>60) mL/min BUN/Creatinine Ratio 21.2 H (10-20) RATIO Glucose 124 H (74-106) mg/dL Calcium 8.7 (8.5-10.1) mg/dL Urine Color Yellow (Yellow) Urine Clarity Clear (Clear) Urine pH 6.0 (5.0 - 8.0) Ur Specific [place] 1.015 (1.002-1.030) Urine Protein Negative (Negative) mg/dl Urine Glucose (UA) Normal (Normal) mg/dl Urine Ketones Negative (Negative) mg/dl Urine Occult Blood Negative (Negative) /ul Urine Nitrite Negative (Negative) Urine Bilirubin Negative (Negative) mg/dL Urine Urobilinogen 1 H (Normal) mg/dl Ur Leukocyte Esterase 25 H (Negative) /ul Urine RBC 0 SEEN (0-5) /hpf Urine WBC 0-5 SEEN (0-5) /hpf Ur Squamous Epith Cells 0-5 SEEN (5-10) /hpf Urine Bacteria 0 SEEN (None Seen) /hpf Hyaline Casts 0-5 SEEN (0-5) /lpf Urine Mucus 4+ (<or=2+) /hpf Clinical Impression(s) from Imaging Studies Hip X-Ray 05/03/17 19:20 IMPRESSION: Left hip arthroplasty with intact hardware and satisfactory alignment. Nondisplaced fracture of the greater trochanter which appears subacute. Correlation with any recent prior examinations is recommended. Electronically Signed: Vishal Mcdaniel, at 20:18 EST Tel , Service support , Assessment/Plan Active and Suspected Problems Intractable left hip pain (Acute) Status post total hip replacement, left (Acute) This is a 71 years old female patient presented to the emergency room because of intractable left hip pain in context of recent history of left hip arthroplasty and she was found to have nondisplaced fracture of the greater trochanter which seemed to be subacute as well as anemia. #1 status post left hip arthroplasty/intractable left hip pain/probable subacute nondisplaced fracture of the greater trochanter: She had left hip arthroplasty on April 24, 2017, had an allergic reaction to Percocet. Later, she was started on Vicodin which seemed working for pain. X-ray of the left hip reviewed, findings noted. Her vital signs are stable. Routine blood work is remarkable for anemia, otherwise normal. Plan: Admit to [facility] floor, Vicodin as needed for pain, IV morphine as needed for pain, bowel regimen with Senokot and milk of magnesia, IV fluids, orthopedic surgery consult, PT OT evaluation and treatment. #2 anemia: This is fairly acute, most recent hemoglobin was from April 12, 2017 and it was 12.4 g/dL. Admission hemoglobin is 9.2 g/dL, likely because of blood loss during surgery. At this time, no evidence of active bleeding. No indication for transfusion. Plan for repeat H&H tomorrow morning. #3 physical debility/functional decline: Patient lives at home, has been having difficulties ambulating because of intractable pain. Plan: PT OT eval and treatment, case management consult, patient probably will need placement to senior care facility. #4 hypertension: Blood pressure stable, continue lisinopril. #5 hyperlipidemia: Continue statins. #6 depression: Continue citalopram. #7 DVT prophylaxis: Subcu Lovenox. This note was generated with Smart Pipe dictation software. It may contain incorrect words, spelling, and punctuation that were not noted in checking the note before signing. Code Visit Inpatient E&M: 91333 Init Hosp L3
--- NOTE | 2017-05-03 22:30 | HP.PCM_ITS ---
Problem List (1) Intractable left hip pain Status: Acute (2) Status post total hip replacement, left Status: Acute (3) Depression Status: Chronic (4) Dyslipidemia Status: Chronic (5) Hypertension Status: Chronic History of Present Illness Date of Admission: 05/03/17 Chief Complaint: Left hip pain, debility. The patient is a 71 year old F with past medical history as mentioned above who underwent total hip replacement on April 24, 2017 at [facility] presented to the emergency room because of intractable left hip pain with weakness and debility. Since she had her surgery, she has been having left hip pain, dull aching pain, 6-7 out of 10 in severity, not radiating, aggravated by standing and walking, relieved by rest and no associated symptoms. She was discharged from the [facility] on Percocet for pain control but she had an allergic reaction to. She continued to have intractable left hip pain and she went to her PCPs office who prescribed Vicodin for her which seemed to be working. Patient lives at home and she mentioned that she has not been able to ambulate with a walker because of the intractable left hip pain. She is not able to take care of herself and she mentioned that her pain is not well controlled. She denies fever or chills. She denied trauma or mechanical fall. When I examined her left leg, she complained of minimal pain on the left calf. in the emergency room, her vital signs were stable. Her routine blood work was remarkable for hemoglobin of 9.2 g/dL, otherwise normal. Urinalysis showed no evidence of UTI. X-ray of the left hip revealed intact left hip arthroplasty nondisplaced fracture of the greater trochanter which could be subacute. She is being admitted for intractable left hip pain, probable subacute nondisplaced fracture of the greater trochanter and anemia. Past Medical History Past Medical History (Chronic Problems): Chronic Problems Depression (Chronic) Dyslipidemia (Chronic) Hypertension (Chronic) Allergies ibuprofen Adverse Reaction (Verified 04/02/17 07:53) Nausea PERCOCET Allergy (Uncoded 05/03/17 18:08) Anaphylaxis Home Medications: Ambulatory Orders Medication Instructions Recorded Citalopram Hydrobromide 20 mg PO DAILY 04/02/17 [Citalopram HBr] Lisinopril [Zestril] 5 mg PO DAILY 04/02/17 Multivit-Min/Iron/Folic/Lutein 1 each PO DAILY 04/02/17 [Centrum Silver Women Tablet] Simvastatin [Zocor] 40 mg PO DAILY 04/02/17 Nystatin 5 ml PO 4X/DAY 05/03/17 Pantoprazole Sodium [Protonix] 40 mg PO DAILY 05/03/17 Surgical History: total hip arthroplasty Psychiatric History: No pertinent psych hx Lives: With Family Smoking Status: Former smoker Alcohol: None Drugs: None - *Family History Maternal History Items: No pertinent history Paternal History Items: No pertinent history Review of Systems Constitutional: Reports: Weakness. Denies: Anorexia, Chills, Fever Eyes: Denies: Blurred vision, Double vision, Drainage, Redness HEENT: Denies: Difficulty Hearing, Ear Pain, Eye Pain, Nasal bleeding, Sore Throat Cardiovascular: Denies: Chest Pain, Chest Tightness, Edema, Heaviness, Palpitations, Paroxysmal Noc. Dyspnea, Syncope Respiratory: Denies: Cough, Pleuritic Pain, Shortness of Breath, Sputum production, Wheezing Gastrointestinal: Denies: Abdominal Pain, Diarrhea, Dyspepsia, Nausea, Vomiting Genitourinary: Denies: Dysuria, Frequency, Hematuria Musculoskeletal: Reports: Joint Pain, Leg Pain. Denies: Arm Pain, Back Pain, Foot Pain Skin: Denies: Dryness, Rash Neurological: Denies: Balance problems, Blurred vision, Change in Speech, Slurred speech, Focal weakness, Headaches, Incoordination Psychiatric: Reports: Depression. Denies: Anxiety Endocrine: Denies: Change in Body Habitus, Polydipsia VTE Information - Inpt Only VTE Present on Admission: No VTE Mechan Device Prophylaxis: None VTE Pharm Prophylaxis ordered?: Yes Patient Problems: Active and Suspected Problems Intractable left hip pain (Acute) Status post total hip replacement, left (Acute) - Physical Exam General: Alert, Oriented x3, Cooperative, No apparent distress HEENT: Atraumatic, PERRLA, EOMI Oral: Moist Mucosa, No Gingival or Mucosal Lesions/ Ulcerations Neck: Supple, No JVD, Negative Carotid Bruits, Trachea Midline, Thyroid Normal Size and Texture Lungs: Clear to auscultation, No rhonchi, No wheeze, No rales, Diminished Cardiovascular: Regular rate, Regular Rhythm, Normal S1, Normal S2, No murmurs, PMI Normal Abdomen: Bowel Sounds Present, Soft, Non Tender, Non-Distended, No Hepato- splenomegaly Extremities: No clubbing, No cyanosis, No edema Skin: No rashes, No breakdown Musculoskeletal: No Tenderness to Palpation of Joints or Extremities Lymphatic: No Cervical, Supraclavicular, or Inguinal Adenopathy Neurological: Cranial nerves II-XII grossly intact, Motor Exam 5/5 strength throughout Psych/Mental Status: Normal Affect, Appropriate, Alert and oriented to time, place, person, mood and affect Vital Signs Temp Pulse Resp BP Pulse Ox 97.3 F L 78 16 108/71 98 05/03/17 18:08 05/03/17 22:14 05/03/17 22:14 05/03/17 22:14 05/03/17 22:14 Laboratory Tests 3 05/03/17 05/03/17 05/03/17 Range/Units 20:40 18:50 18:50 WBC 8.3 (4.4-11.0) K/mm3 RBC 3.02 L (4.2-5.4) M/mm3 Hgb 9.2 L (12.0-15.0) g/dl Hct 28.6 L (37-47) % MCV 94.7 (81-99) fL MCH 30.5 (27.0-32.0) pg MCHC 32.2 (32-36) g/gl RDW 14.1 (11.6-14.6) % RDW Differential 48.4 H (35.1-43.9) fl Plt Count 420 (150-450) K/mm3 MPV 8.3 (6.2-12.0) fl Immature Gran % (Auto) 1.000 H (0.0-0.9) % Neut % (Auto) 48.9 (47-70) % Lymph % (Auto) 37.8 (19-41) % [place] % (Auto) 9.7 (0-10) % Eos % (Auto) 2.4 (0-5) % Baso % (Auto) 0.2 (0-1) % Absolute Neuts (auto) 4.1 (2.0-7.7) X10^3/uL Absolute Lymphs (auto) 3.14 (0.83-4.51) X10^3/ul Total Counted Not Reportable Sodium 140 (136-145) mmol/L Potassium 3.9 (3.5-5.1) mmol/L Chloride 104 (98-107) mmol/L Carbon Dioxide 28.0 (21.0-32.0) mmol/L Anion Gap 8 (5-15) BUN 16 (7-18) mg/dL Creatinine 0.76 (0.55-1.02) mg/dL Estim Creat Clear Calc 36.53 ml/min Est GFR (MDRD) Af Amer 97 (>60) mL/min Est GFR (MDRD) Non-Af 80 (>60) mL/min BUN/Creatinine Ratio 21.2 H (10-20) RATIO Glucose 124 H (74-106) mg/dL Calcium 8.7 (8.5-10.1) mg/dL Urine Color Yellow (Yellow) Urine Clarity Clear (Clear) Urine pH 6.0 (5.0 - 8.0) Ur Specific [place] 1.015 (1.002-1.030) Urine Protein Negative (Negative) mg/dl Urine Glucose (UA) Normal (Normal) mg/dl Urine Ketones Negative (Negative) mg/dl Urine Occult Blood Negative (Negative) /ul Urine Nitrite Negative (Negative) Urine Bilirubin Negative (Negative) mg/dL Urine Urobilinogen 1 H (Normal) mg/dl Ur Leukocyte Esterase 25 H (Negative) /ul Urine RBC 0 SEEN (0-5) /hpf Urine WBC 0-5 SEEN (0-5) /hpf Ur Squamous Epith Cells 0-5 SEEN (5-10) /hpf Urine Bacteria 0 SEEN (None Seen) /hpf Hyaline Casts 0-5 SEEN (0-5) /lpf Urine Mucus 4+ (<or=2+) /hpf Clinical Impression(s) from Imaging Studies Hip X-Ray 05/03/17 19:20 IMPRESSION: Left hip arthroplasty with intact hardware and satisfactory alignment. Nondisplaced fracture of the greater trochanter which appears subacute. Correlation with any recent prior examinations is recommended. Electronically Signed: Vishal Mcdaniel, at 20:18 EST Tel , Service support , Assessment/Plan Active and Suspected Problems Intractable left hip pain (Acute) Status post total hip replacement, left (Acute) This is a 71 years old female patient presented to the emergency room because of intractable left hip pain in context of recent history of left hip arthroplasty and she was found to have nondisplaced fracture of the greater trochanter which seemed to be subacute as well as anemia. #1 status post left hip arthroplasty/intractable left hip pain/probable subacute nondisplaced fracture of the greater trochanter: She had left hip arthroplasty on April 24, 2017, had an allergic reaction to Percocet. Later , she was started on Vicodin which seemed working for pain. X-ray of the left hip reviewed, findings noted. Her vital signs are stable. Routine blood work is remarkable for anemia, otherwise normal. Plan: Admit to [facility] floor, Vicodin as needed for pain, IV morphine as needed for pain, bowel regimen with Senokot and milk of magnesia, IV fluids, orthopedic surgery consult, PT OT evaluation and treatment. #2 anemia: This is fairly acute, most recent hemoglobin was from April 12, 2017 and it was 12.4 g/dL. Admission hemoglobin is 9.2 g/dL, likely because of blood loss during surgery. At this time, no evidence of active bleeding. No indication for transfusion. Plan for repeat H&H tomorrow morning. #3 physical debility/functional decline: Patient lives at home, has been having difficulties ambulating because of intractable pain. Plan: PT OT eval and treatment, case management consult, patient probably will need placement to [facility] facility. #4 hypertension: Blood pressure stable, continue lisinopril. #5 hyperlipidemia: Continue statins. #6 depression: Continue citalopram. #7 DVT prophylaxis: Subcu Lovenox. This note was generated with [employer]ass-[employer] dictation software. It may contain incorrect words, spelling, and punctuation that were not noted in checking the note before signing. Code Visit Inpatient E&M: 06023 Init Hosp L3
--- NOTE | 2017-05-03 23:02 | VDLE_ITS ---
Reason For Study: LEG SWELLING RIGHT LEFT CFV is compressible, spontaneous, phasic, GSV is normal. competent and demonstrates normal CFV is compressible, spontaneous, phasic, augmentation. competent, and demonstrates normal Procedure augmentation. Exam performed portable in patient room. FV is compressible, spontaneous, phasic, LLE SFJ and FV mislabeled as RLE on images. competent and demonstrates normal A preliminary report was called and/or faxed augmentation. to [facility]. POP V is compressible, spontaneous, phasic, competent and demonstrates normal augmentation. T/P Trunk is compressible. PTV is compressible. LT PerV is compressible. Interpretation Summary There is no evidence of left lower extremity deep vein thrombosis. Left greater saphenous vein appears patent and compressible segmentally. Normal flow patterns right common femoral vein. Ordering Physician: Lefty Cardenas Referring Physician: Agus Malik Performed By: Nicole Silvestre RVT
[2017-05-03 23:03] VITALS: BMI 33.0
[2017-05-03 23:04] VITALS: BP 159/73; PULSE 81; RESP 16; TEMP 37.2; O2SAT 99
[2017-05-03] MEDS: HYDROcodone Bitartrate/Apap 5/325 Tablet PO (23:44)
[2017-05-03] MEDS: 0.9% Normal Saline 1,000 ML 75 ML IV (23:44)
[2017-05-03] MEDS: 0.9% NaCl Peripheral Flush Adult/Peds IV (23:48)
[2017-05-04 04:41] VITALS: BP 137/47; PULSE 74; RESP 18; TEMP 36.5; O2SAT 100
[2017-05-04 05:59] LABS: Hematocrit 26.2 % (37-47); Hemoglobin 8.4 g/dl (12.0-15.0)
[2017-05-04 07:51] VITALS: BP 149/75; PULSE 75; RESP 20; TEMP 36.7; O2SAT 97
[2017-05-04] MEDS: 0.9% NaCl Peripheral Flush Adult/Peds IV ×2 (07:59→12:06)
[2017-05-04] MEDS: NYSTATIN 500,000 UNIT/5 ML UDC 500000 UNIT PO ×2 (09:21→14:16)
[2017-05-04] MEDS: Enoxaparin 40 MG/0.4 ML Syringe SC (09:21)
[2017-05-04] MEDS: Citalopram 20 MG Tablet PO (09:21)
[2017-05-04] MEDS: Lisinopril 5 MG Tablet PO (09:22)
[2017-05-04] MEDS: Pantoprazole Sodium 40 MG Tablet PO (09:22)
[2017-05-04] MEDS: Senna Tablet 1 TABLET PO (09:22)
--- NOTE | 2017-05-04 09:25 | PCM.PN.HOSP ---
Patient Problems: Active and Suspected Problems Intractable left hip pain (Acute) Status post total hip replacement, left (Acute) Subjective: Still with left hip pain. Patient states that this hip pain has been ongoing since her surgery. Patient thinks that she had x-rays of her hip after her surgery but is unsure. Vitals/I&O's: Vital Signs Temp Pulse Resp BP Pulse Ox 36.7 C 75 20 H 149/75 H 97 05/04/17 07:51 05/04/17 07:51 05/04/17 07:51 05/04/17 07:51 05/04/17 07:51 Oxygen Flow Rate (L/min) 2 Oxygen Delivery Method Room Air Weight: 76.7 kg Body Mass Index (BMI) 33.0 General: Alert, Cooperative, No apparent distress HEENT: Atraumatic, Normocephalic Neck: No Nodes, Thyroid Normal Size and Texture Lungs: Clear to auscultation, Normal air movement, No rhonchi, No wheeze Cardiovascular: Regular rate, Regular Rhythm, Normal S1, Normal S2, No murmurs Abdomen: Bowel Sounds Present, Soft, Non Tender, Non-Distended, No Hepato-splenomegaly Skin: - - no rash over left hip. Laboratory Results 05/04/17 05:37: Hgb 8.4 L, Hct 26.2 L Current Medications Hydrocodone Bitart/Acetaminophen ([place] 5mg-325mg) 1 tablet PO Q6H PRN PRN PRN Reason: SEVERE PAIN (6-10/10) Last Admin: 05/03/17 23:44 Dose: 1 tablet Atorvastatin Calcium (Lipitor) 20 mg PO DAILY@2200 ON LICENSE OF [facility] Citalopram Hydrobromide (Celexa) 20 mg PO DAILY ON LICENSE OF [facility] Last Admin: 05/04/17 09:21 Dose: 20 mg Enoxaparin Sodium (Lovenox) 40 mg SC DAILY@1000 ON LICENSE OF [facility] Last Admin: 05/04/17 09:21 Dose: 40 mg Sodium Chloride () 1,000 mls @ 75 mls/hr IV .[id number] ON LICENSE OF [facility] Stop: 05/04/17 12:21 Last Admin: 05/03/17 23:44 Dose: 75 mls/hr Lisinopril (Zestril) 5 mg PO DAILY ON LICENSE OF [facility] Last Admin: 05/04/17 09:22 Dose: 5 mg Magnesium Hydroxide (Milk Of Magnesia) 30 ml PO DAILY PRN PRN PRN Reason: Constipation Morphine Sulfate (Morphine) 1 - 2 mg IV Q3H PRN PRN PRN Reason: SEVERE PAIN (6-10/10) Last Admin: 05/04/17 07:58 Dose: 2 mg Nystatin (Nystatin) 500,000 unit PO 4X/DAY ON LICENSE OF [facility] Last Admin: 05/04/17 09:21 Dose: 500,000 unit Ondansetron HCl (Zofran) 4 mg IV Q8H PRN PRN PRN Reason: NAUSEA/VOMITING Pantoprazole Sodium (Protonix) 40 mg PO DAILY ON LICENSE OF [facility] Last Admin: 05/04/17 09:22 Dose: 40 mg Senna (Senokot) 1 tablet PO BID ON LICENSE OF [facility] Last Admin: 05/04/17 09:22 Dose: 1 tablet Sodium Chloride () 5 - 30 ml IV UD PRN PRN Reason: SALINE FLUSH Last Admin: 05/04/17 07:59 Dose: 10 ml Assessment/Plan Active and Suspected Problems Intractable left hip pain (Acute) Status post total hip replacement, left (Acute) 1. Left greater trochanteric fracture, subacute Patient with what appears to be subacute greater trochanteric fracture. Patient states that this is been ongoing since her left hip replacement on the at the [facility]. Orthopedics has seen the patient and waiting on their evaluation in regards to any additional inpatient management of this, if necessary. If no surgery nor transfer is necessary then the patient can be discharged to [facility] facility. Continue with pain control No evidence of any zoster infection involving that side to explain her pain. 2. Anemia Hemoglobin 8.4. It was 12.4 back in April 12. Is related with the patient's surgery Indication to transfuse at this time. Will start patient on ferrous sulfate. 3. DVT prophylaxis Patient currently on Lovenox. Patient's home med rec has that she is on aspirin 325 daily. I presume that this is actually twice daily given patient's recent hip replacement. We will change at over to aspirin 325 twice daily and to discontinue the Lovenox. Code Visit Inpatient E&M: 78816 Subs Hosp L2
--- NOTE | 2017-05-04 09:35 | PN_ITS ---
Patient Problems: Active and Suspected Problems Intractable left hip pain (Acute) Status post total hip replacement, left (Acute) Subjective: Still with left hip pain. Patient states that this hip pain has been ongoing since her surgery. Patient thinks that she had x-rays of her hip after her surgery but is unsure. Vitals/I&O's: Vital Signs Temp Pulse Resp BP Pulse Ox 36.7 C 75 20 H 149/75 H 97 05/04/17 07:51 05/04/17 07:51 05/04/17 07:51 05/04/17 07:51 05/04/17 07:51 Oxygen Flow Rate (L/min) 2 Oxygen Delivery Method Room Air Weight: 76.7 kg Body Mass Index (BMI) 33.0 General: Alert, Cooperative, No apparent distress HEENT: Atraumatic, Normocephalic Neck: No Nodes, Thyroid Normal Size and Texture Lungs: Clear to auscultation, Normal air movement, No rhonchi, No wheeze Cardiovascular: Regular rate, Regular Rhythm, Normal S1, Normal S2, No murmurs Abdomen: Bowel Sounds Present, Soft, Non Tender, Non-Distended, No Hepato- splenomegaly Skin: - - no rash over left hip. Laboratory Results 05/04/17 05:37: Hgb 8.4 L, Hct 26.2 L Current Medications Hydrocodone Bitart/Acetaminophen ([place] 5mg-325mg) 1 tablet PO Q6H PRN PRN PRN Reason: SEVERE PAIN (6-10/10) Last Admin: 05/03/17 23:44 Dose: 1 tablet Atorvastatin Calcium (Lipitor) 20 mg PO DAILY@2200 [facility] Citalopram Hydrobromide (Celexa) 20 mg PO DAILY [facility] Last Admin: 05/04/17 09:21 Dose: 20 mg Enoxaparin Sodium (Lovenox) 40 mg SC DAILY@1000 [facility] Last Admin: 05/04/17 09:21 Dose: 40 mg Sodium Chloride () 1,000 mls @ 75 mls/hr IV .[id number] [facility] Stop: 05/04/17 12:21 Last Admin: 05/03/17 23:44 Dose: 75 mls/hr Lisinopril (Zestril) 5 mg PO DAILY [facility] Last Admin: 05/04/17 09:22 Dose: 5 mg Magnesium Hydroxide (Milk Of Magnesia) 30 ml PO DAILY PRN PRN PRN Reason: Constipation Morphine Sulfate (Morphine) 1 - 2 mg IV Q3H PRN PRN PRN Reason: SEVERE PAIN (6-10/10) Last Admin: 05/04/17 07:58 Dose: 2 mg Nystatin (Nystatin) 500,000 unit PO 4X/DAY [facility] Last Admin: 05/04/17 09:21 Dose: 500,000 unit Ondansetron HCl (Zofran) 4 mg IV Q8H PRN PRN PRN Reason: NAUSEA/VOMITING Pantoprazole Sodium (Protonix) 40 mg PO DAILY [facility] Last Admin: 05/04/17 09:22 Dose: 40 mg Senna (Senokot) 1 tablet PO BID [facility] Last Admin: 05/04/17 09:22 Dose: 1 tablet Sodium Chloride () 5 - 30 ml IV UD PRN PRN Reason: SALINE FLUSH Last Admin: 05/04/17 07:59 Dose: 10 ml Assessment/Plan Active and Suspected Problems Intractable left hip pain (Acute) Status post total hip replacement, left (Acute) 1. Left greater trochanteric fracture, subacute * Patient with what appears to be subacute greater trochanteric fracture. Patient states that this is been ongoing since her left hip replacement on the at the [facility]. * Orthopedics has seen the patient and waiting on their evaluation in regards to any additional inpatient management of this, if necessary. * If no surgery nor transfer is necessary then the patient can be discharged to residential facility. * Continue with pain control * No evidence of any zoster infection involving that side to explain her pain. 2. Anemia * Hemoglobin 8.4. It was 12.4 back in April 12. * Is related with the patient's surgery * Indication to transfuse at this time. * Will start patient on ferrous sulfate. 3. DVT prophylaxis * Patient currently on Lovenox. * Patient's home med rec has that she is on aspirin 325 daily. I presume that this is actually twice daily given patient's recent hip replacement. We will change at over to aspirin 325 twice daily and to discontinue the Lovenox. Code Visit Inpatient E&M: 02144 Subs Hosp L2
--- NOTE | 2017-05-04 09:39 | PCM.TXEXTCAR ---
- Diet 05/03/17 22:21 Diet: Cardiac/Low Cholesterol Food consistency:: Regular Liquid Consistency:: Regular/Thin - Routine Orders/Code Status Code Status: Full Code - Wound(s) left hip Wound Type: Surgical Incision - Therapies Physical Therapy: Eval and Treat Occupational Therapy: Eval and Treat - Allergies/Procedures Done in Hospital Allergies/Adverse Reactions: Allergies ibuprofen Adverse Reaction (Verified 04/02/17 07:53) Nausea PERCOCET Allergy (Uncoded 05/03/17 18:08) Anaphylaxis - Type of Care/Length of Stay Estimated LOS: Convalescent Care Less Than 30 days Type of Care Needed: Skilled Rehab Potential: Fair Prognosis: Good - Additional Orders/Day of Discharge Day of Discharge: 05/04/17 - Follow Up Care Primary Care Physician: Agus Malik MD [Primary Care Provider] - Please Follow Up With: Alexander Conley MD - post-operative follow up. When: 1-2 weeks
--- NOTE | 2017-05-04 09:41 | CASEMGMT ---
Addendum entered by Fanny Bernabe 05/04/17 12:52: SW completed PAS/RR, faxed it with results to Ny at [facility]. Ny did get precert for pt to go to [facility] today. ROSEANNE faxed d/c instructions to Ny at [facility], schedule II [facility]. SW spoke w/pt, she states her son can take her over about 6pm, RN aware. SW spoke w/Ny at [facility], she states this will be fine. No further needs, pt to [facility] today. GEORGE Li, IN [employer]OL SUSPENSION AIDE Original Note: Addendum entered by Fanny Bernabe 05/04/17 12:08: OT evaluation faxed to [facility], SW called Ny at [facility] to let her know it was faxed. GEORGE Li, IN SCHOOL SUSPENSION AIDE Original Note: Addendum entered by Fanny Bernabe 05/04/17 11:07: [facility] can take pt and will start precert once PT/OT are completed. PT is completed, ROSEANNE faxed this, OT is pending. Once OT is completed, ROSEANNE will fax to Ny. Ny explained that she was working w/Dr. Malik's office trying to get pt in from there, but pt's home health did not come out to see her so they had no current therapy notes and could not attain a precert. SW spoke w/pt, pt's sister and brother in law are in visiting. ROSEANNE explained that [facility] has a bed, and that SW faxed the information over, they will try to start precert now. Pt has not had OT yet however, and this may be needed. Once pt has OT, ROSEANNE will send this to [facility] as well. Pt states understanding. SW explained if we do not get a precert today she will be here until Sunday as we cannot get precert on the weekend. Pt and family state understanding. ROSEANNE will continue to follow. GEORGE Li, IN [employer]CHOOL SUSPENSION AIDE Original Note: See assessment. SW spoke w/pt in room. Pt had a hip replacement at [facility] in late . Pt has been having a difficult time at home since then. Initially, her cousin was staying w/her, but had to go home for an emergency. Her niece then stepped in and was helping pt. Pt has been painful and not able to manage. Pt had [facility] initially. They stopped coming out however as the doctor's office was trying to get pt into a prison. Pt states it was [place] initially but is not sure what happened there. SW explained they have no beds. She states they were then trying to get pt into [facility]. Pt agreeable to have SW follow up w/[facility]. SW explained will send some information to them, and if they have a bed and can take pt, once she has PT/OT, this gets submitted to insurance for precert. SW also gave pt list of other nursing homes that take her insurance in event [facility] cannot take pt. Pt would like to stay in [place] if possible. SW explained will contact [facility], will let her know what they say. SW called [facility], message left for Ny, and initiall referral faxed. SW will wait to hear back from Ny if they can take pt, and if they can will fax PT/OT once completed. SW will continue to follow. GEORGE Li, IN SCHOOL SUSPENSION AIDE
--- NOTE | 2017-05-04 11:20 | CON.PCM_ITS ---
Reason for Consult Date of Consultation: 05/04/17 Reason for Consultation: Intractable left hip pain status post left total hip arthroplasty History of Present Illness: The patient is a 71 year old F who had a total hip arthroplasty April 24, 2017 at the [facility] by Dr. Conley. She was in the hospital for 2 days after surgery and was discharged home. She had some intolerance of the Percocet and had to discontinue using this and she saw her family physician as her pain was increasing. She was given some Vicodin which she felt was helping she also had some difficulties with thrush was treated by her family physician. She has gotten to the point where she has been unable to ambulate without severe pain. She denies any type of fall. She denies any fevers or chills Past Medical History Past Medical History (Chronic Problems): Chronic Problems Depression (Chronic) Dyslipidemia (Chronic) Hypertension (Chronic) Allergies ibuprofen Adverse Reaction (Verified 04/02/17 07:53) Nausea PERCOCET Allergy (Uncoded 05/03/17 18:08) Anaphylaxis Home Medications: Ambulatory Orders Medication Instructions Recorded Citalopram Hydrobromide 20 mg PO DAILY 04/02/17 [Citalopram HBr] Lisinopril [Zestril] 5 mg PO DAILY 04/02/17 Multivit-Min/Iron/Folic/Lutein 1 each PO DAILY 04/02/17 [Centrum Silver Women Tablet] Simvastatin [Zocor] 40 mg PO DAILY 04/02/17 Nystatin 5 ml PO 4X/DAY 05/03/17 Pantoprazole Sodium [Protonix] 40 mg PO DAILY 05/03/17 Aspirin 325 mg PO BID #0 05/04/17 Hydrocodone Bitart/Apap 5-325 1 tab PO Q6H PRN PRN 2 Days #8 tab 05/04/17 [[place] 5/325] Surgical History: total hip arthroplasty Psychiatric History: No pertinent psych hx Lives: With Family Smoking Status: Former smoker Alcohol: None Drugs: None - *Family History Maternal History Items: No pertinent history Paternal History Items: No pertinent history Review of Systems Constitutional: Denies: Chills, Fever, Weight Change HEENT: Denies: Head Aches, Sinus Congestion, Sinus Drainage Cardiovascular: Denies: Chest Pain, Palpitations Respiratory: Denies: Cough, Shortness of breath at rest, Sputum production Gastrointestinal: Denies: Abdominal Pain, Nausea, Vomiting Genitourinary: Denies: Dysuria Neurological: Denies: Numbness, Tingling, Focal weakness Psychiatric: Denies: Anxiety, Depression, Homicidal Ideations, Suicidal Ideations Patient Problems: Active and Suspected Problems Intractable left hip pain (Acute) Status post total hip replacement, left (Acute) - Physical Exam General: Alert, Oriented x3, Cooperative HEENT: Atraumatic, PERRLA, EOMI, Normocephalic Neck: Supple, No JVD Lungs: Normal air movement Cardiovascular: Regular rate Abdomen: Soft, Non Tender Skin: Incision - Clean dry and intact at the anterior aspect of the hip Musculoskeletal: - - Patient displays pain with logroll. Pain with passive flexion of the hip. She is neurovascularly intact. Sensation is preserved. There is some mild ecchymosis noted at the calf. There is no evidence of blood clot. The calf is supple and nontender. Minimal bruising to the thigh Neurological: Cranial nerves II-XII grossly intact Psych/Mental Status: Normal Affect Vital Signs Temp Pulse Resp BP Pulse Ox 98.1 F 75 20 H 149/75 H 97 05/04/17 07:51 05/04/17 07:51 05/04/17 07:51 05/04/17 07:51 05/04/17 07:51 Oxygen Flow Rate (L/min) 2 Oxygen Delivery Method Room Air Weight: 169 lb 1.513 oz Body Mass Index (BMI) 33.0 Laboratory Tests Past 24 Hrs 05/04/17 05:37 Hgb 8.4 L Hct 26.2 L Assessment/Plan Active and Suspected Problems Intractable left hip pain (Acute) Status post total hip replacement, left (Acute) Left hip pain status post total hip arthroplasty I personally reviewed patient's x-rays. She has a located total hip arthroplasty that is in place. There is a cerclage cable around the proximal aspect of the femur. I am unable to compare these films with her immediate postoperative films. There is evidence that the femoral stem possibly subsided 2 to may account for her discomfort 3 mm which. I do not identify any acute fracture. I am going to place the patient on toe-touch weightbearing precautions and would recommend that the patient follow-up with Dr. Conley next week for further evaluation. I did attempt to contact his office and left [address] Conley company secretary in order to touch base regarding the patient's care and to see if we can find a way to compare the post surgical films to the films obtained yesterday this is truly the only way to determine whether or not there is been a shift in position. I do not feel that there is any urgent need for any type of surgical correction or change and anticipate that her pain will improve with protected weightbearing for 3-4 weeks
--- NOTE | 2017-05-04 14:03 | CHAPLAIN ---
Type of Pastoral Visit _x__ Initial Visit ___ Follow-up Visit ___ On-call Visit ___ General Patient Visit ___ Spiritual Assessment ___ Family Conference ___ Bereavement ___ Rapid Response ___ Code Blue ___ Other (describe below) Pastoral Care Referral From _x__ Patient ___ Family ___ Nurse ___ Physician ___ Storage Management Consultant ___ Assistant Signal Maintainer ___ Other (describe below) Sacrament/Intervention _x__ Active listening ___ Anointing ___ Temple ___ Bereavement ___ Communion ___ Yelena exploration ___ _x__ Life review _x__ Prayer ___ Reconciliation ___ Sacrament of Sick ___ Supportive presence ___ Wedding ___ Other (describe below) Pastoral Comments
[2017-05-04 14:12] VITALS: BP 86/58; PULSE 83; RESP 18; TEMP 37.2; O2SAT 97
[2017-05-04] MEDS: Lidocaine 5% Patch 1 PATCH TOPICAL (14:50)
[2017-05-04 15:20] VITALS: BP 111/60; PULSE 81; RESP 18; TEMP 37.2; O2SAT 97
--- NOTE | 2017-05-04 15:33 | NURSING ---
REPORT CALLED TO GIANFRANCO @ [facility]
[2017-05-04] MEDS: HYDROcodone Bitartrate/Apap 5/325 Tablet PO (16:14)
[2017-05-04] MEDS: Ferrous Sulfate 325 MG Tablet PO (16:14)
[2017-05-04] MEDS: Aspirin 325 MG Tablet PO (16:15)
--- NOTE | 2017-05-04 16:40 | PCM.DC.SUM ---
Discharge Date and Diagnosis - Problem List Patient Problems: Active and Suspected Problems Intractable left hip pain (Acute) Status post total hip replacement, left (Acute) Date of Admission: 05/03/17 Date of Discharge: 05/04/17 - Primary Discharge Diagnosis Active and Suspected Problems Intractable left hip pain (Acute) Status post total hip replacement, left (Acute) - Secondary Discharge Diagnosis Chronic Problems Depression (Chronic) Dyslipidemia (Chronic) Hypertension (Chronic) Hospital Course and Treatment Imaging Results: Clinical Impression(s) from Imaging Studies Hip X-Ray 05/03/17 19:20 IMPRESSION: Left hip arthroplasty with intact hardware and satisfactory alignment. Nondisplaced fracture of the greater trochanter which appears subacute. Correlation with any recent prior examinations is recommended. Electronically Signed: Vishal Mcdaniel, at 20:18 EST Tel , Service support , Leonel Campbell Operations: None Procedures: None Summary of Care Provided: The patient is a 71 year old F who has been complaining of left hip pain. Patient initially stated that it happened a few days prior to arrival. Patient had notified her physician who did her recent left hip arthroplasty who advised to contact her primary care doctor. Patient stated the pain was too severe and presented to the emergency room. Patient was an x-ray that showed a subacute fracture of the greater trochanter. Patient was admitted and seen by Dr. Campbell who attempted to contact the patient's orthopedist at the [facility], Dr. Conley. Unfortunately did not hear back but patient will be on protected weightbearing on left hip and to follow-up with Dr. Conley. No acute surgical intervention is necessary at this time. She will be going to [facility] for further rehab. [] Discharge Diet: No Restrictions Discharge Activity: Return to Normal Activity Weight Bearing Status: Weight bearing as tolerated Keep extremity elevated above heart level: Left Leg Call your doctor if you observe: Fever of 101 or Higher, - - worsening leg pain. Home Medications: Medications to take at Discharge Citalopram Hydrobromide [Citalopram HBr] 20 mg PO DAILY 04/02/17 Lisinopril [Zestril] 5 mg PO DAILY 04/02/17 Multivit-Min/Iron/Folic/Lutein [Centrum Silver Women Tablet] 1 each PO DAILY 04/02/17 Simvastatin [Zocor] 40 mg PO DAILY 04/02/17 Nystatin 5 ml PO 4X/DAY 05/03/17 Pantoprazole Sodium [Protonix] 40 mg PO DAILY 05/03/17 Aspirin 325 mg PO BID #0 05/04/17 Hydrocodone Bitart/Apap 5-325 [[place] 5/325] 1 tab PO Q6H PRN PRN 2 Days #8 tab 05/04/17 Following Prescrptions Were Given to Patient: Hydrocodone Bitart/Apap 5-325 [[place] 5/325] 1 tab PO Q6H PRN PRN 2 Days #8 tab PRN Reason: Severe Pain (6-12/05) Primary Care Physician: Agus Malik MD [Primary Care Provider] - Please Follow Up With: Alexander Conley MD - post-operative follow up. When: 1-2 weeks Disposition: Alf facility Minutes spent on discharge:: 28 Patient Condition:: Fair Meaningful Use Info Meaningful Use Diagnoses (Choose all that apply): None applicable Code Visit OBSV E&M: 04615 Observation care discharge
--- NOTE | 2017-05-04 16:43 | DS.PCM_ITS ---
Discharge Date and Diagnosis - Problem List Patient Problems: Active and Suspected Problems Intractable left hip pain (Acute) Status post total hip replacement, left (Acute) Date of Admission: 05/03/17 Date of Discharge: 05/04/17 - Primary Discharge Diagnosis Active and Suspected Problems Intractable left hip pain (Acute) Status post total hip replacement, left (Acute) - Secondary Discharge Diagnosis Chronic Problems Depression (Chronic) Dyslipidemia (Chronic) Hypertension (Chronic) Hospital Course and Treatment Imaging Results: Clinical Impression(s) from Imaging Studies Hip X-Ray 05/03/17 19:20 IMPRESSION: Left hip arthroplasty with intact hardware and satisfactory alignment. Nondisplaced fracture of the greater trochanter which appears subacute. Correlation with any recent prior examinations is recommended. Electronically Signed: Vishal Mcdaniel, at 20:18 EST Tel , Service support , Leonel Campbell Operations: None Procedures: None Summary of Care Provided: The patient is a 71 year old F who has been complaining of left hip pain. Patient initially stated that it happened a few days prior to arrival. Patient had notified her physician who did her recent left hip arthroplasty who advised to contact her primary care doctor. Patient stated the pain was too severe and presented to the emergency room. Patient was an x-ray that showed a subacute fracture of the greater trochanter. Patient was admitted and seen by Dr. Campbell who attempted to contact the patient's orthopedist at the [facility] , Dr. Conley. Unfortunately did not hear back but patient will be on protected weightbearing on left hip and to follow-up with Dr. Conley. No acute surgical intervention is necessary at this time. She will be going to [facility] for further rehab. [] Discharge Diet: No Restrictions Discharge Activity: Return to Normal Activity Weight Bearing Status: Weight bearing as tolerated Keep extremity elevated above heart level: Left Leg Call your doctor if you observe: Fever of 101 or Higher, - - worsening leg pain. Home Medications: Medications to take at Discharge Citalopram Hydrobromide [Citalopram HBr] 20 mg PO DAILY 04/02/17 Lisinopril [Zestril] 5 mg PO DAILY 04/02/17 Multivit-Min/Iron/Folic/Lutein [Centrum Silver Women Tablet] 1 each PO DAILY 07/13 Simvastatin [Zocor] 40 mg PO DAILY 04/02/17 Nystatin 5 ml PO 4X/DAY 05/03/17 Pantoprazole Sodium [Protonix] 40 mg PO DAILY 05/03/17 Aspirin 325 mg PO BID #0 05/04/17 Hydrocodone Bitart/Apap 5-325 [[place] 5/325] 1 tab PO Q6H PRN PRN 2 Days #8 tab 05/04/17 Following Prescrptions Were Given to Patient: Hydrocodone Bitart/Apap 5-325 [[place] 5/325] 1 tab PO Q6H PRN PRN 2 Days #8 tab PRN Reason: Severe Pain (6-12/05) Primary Care Physician: Agus Malik MD [Primary Care Provider] - Please Follow Up With: Alexander Conley MD - post-operative follow up. When: 1-2 weeks Disposition: Snf facility Minutes spent on discharge:: 28 Patient Condition:: Fair Meaningful Use Info Meaningful Use Diagnoses (Choose all that apply): None applicable Code Visit OBSV E&M: 01799 Observation care discharge
[2017-05-04 17:25] VITALS: BP 111/60; PULSE 81; RESP 18; TEMP 37.2; O2SAT 97
== END 2017-05-04 17:20 | disposition skilled nursing facility (03) ==
LOC: ED 20:29 → MS2 22:19
PROVIDERS: Admitting Provider Hospitalist; Emergency Provider Emergency Medicine; Family Provider Family Medicine; PCP Family Medicine
DX: G89.18 Other acute postprocedural pain (principal); M25.552 Pain in left hip; Z96.642 Presence of left artificial hip joint; Z79.899 Other long term (current) drug therapy; E78.5 Hyperlipidemia, unspecified; I10 Essential (primary) hypertension; F32.9 Major depressive disorder, single episode, unspecified; Z87.891 Personal history of nicotine dependence; D64.9 Anemia, unspecified; B37.9 Candidiasis, unspecified; M79.89 Other specified soft tissue disorders
CPT/HCPCS: 36415; 73502; 80048; 81001; 85014; 85018; 85025; 93971; 96361; 96372; 96374; 96375; 96376; 97162; 97165; 99218; 99285; J7030; J7040; P9612; A4216; G0378; J2405

== ENCOUNTER → 2017-10-05 09:43 | Outpatient (CLI) | payer SELFPAY ==
[2017-10-05 12:40] LABS: Anion Gap 10 (5-15); BUN 13 mg/dL (7-18); BUN/Creat Ratio 17.4 RATIO (10-20); Calcium,Total 9.3 mg/dL (8.5-10.1); Chloride 106 mmol/L (98-107); Cholesterol 172 mg/dL (200); Creatinine, Serum 0.75 mg/dL (0.55-1.02); EST Glomerular Filtration Rate 81 mL/min (>60); Est Glom Filt Rate - Afr Amer 98 mL/min (>60); Glucose 84 mg/dL (74-106); High Density Lipoprotein 63 mg/dL; Potassium 4.1 mmol/L (3.5-5.1); Sodium Level 140 mmol/L (136-145); Triglycerides 74 mg/dL; Very Low Density Lipoprotein 15 mg/dL (5-40)
== END ==
LOC: MTRAD 09:43 → MFPLAB 10:07
PROVIDERS: Family Provider Family Medicine; PCP Family Medicine; Visit Provider Family Medicine
DX: E78.00 Pure hypercholesterolemia, unspecified (principal)
CPT/HCPCS: 36415; 80048; 80061

== ENCOUNTER → 2017-10-30 11:31 | Outpatient (CLI) | payer MEDICARE, SELFPAY | LOC: MTRAD 11:33 | PROVIDERS: Family Provider Family Medicine; PCP Family Medicine; Visit Provider Family Medicine | DX: M54.9 Dorsalgia, unspecified (principal) | CPT/HCPCS: 72110 ==

== ENCOUNTER 2017-12-26 14:00 | Outpatient (RCR) | payer MEDICARE, SELFPAY ==
--- NOTE | 2017-11-06 14:59 | HP.PTEVAL_ITS ---
Patient's Visit Information ALEXUS TATE is a 72 year old F referred to Physical Therapy by Agus Malik with a diagnosis of BACK PAIN. Date of Evaluation: 11/06/17 Physical Therapist: Scarlett Denson Visit Plan Frequency: 2-3x /Week Duration: 4-6 Weeks Plan: AQUATIC THERAPY FOR PAIN RELEIF, POSTURE CORRECTION/STRENGTHENING, INSTRUCTION IN APPROPRIATE BODY MECHANICS AND ACTIVITY MODIFICATIONS. DLS STARTING WITH A NEUTRAL SPINE PROGRESSING ROM TOLERATED. LILIANA LE ROM, STRETCHING AND STRENGTHENING. HEP INSTRUCTION. - Subjective Subjective: Work/Leisure: RETIRED. BABYSITS FOR A 1.5 MONTH OLD MOST MORINGS FOR ABOUT 5 HOURS. Disability: YES - FOR STROKE. Present symptoms: LEFT BACK , LEFT HIP, LEFT THIGH, LEFT LEG. PATIENT DENIES FOOT SX'S. PATIENT DENIES NUMBNESS AND TINGLING IN HER LLE. Present since: MAR 2017 WHEN HAD HIP REPLACEMENT. Pain Scale: WORST 10/10, LEAST 2/10. Currently: 4/10. Commenced as a result of: PATIENT RELATES THE ONSET OF THIS PAIN TO WHEN SHE HAD HER LEFT HIP REPLACED IN MAR 2017. Symptoms at onset: LEFT HIP. Worse: PROLONGED SITTING, WALKING IN [employer], WALKING, LYING DOWN IN ONE POSITION FOR TOO LONG, STEPS, RISING FROM SITTING, STANDING TO DO THE DISHES. Better: NAPROSYN, FREQUENT CHANGE OF POSITION. Disturbed sleep: YES. 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 STATES SHE CAME OUT OF IT HERSELF WITHOUT SURGERY. NO PT. NO CRISS'S. NO BACK SURGERY. EPISODIC LEFT LOW BACK PAIN WHEN LUMP IN LOW BACK SWELLS. Coughing/sneezing/straining: POSITIVE. Gait: HAS TO USE A CANE SOMETIMES DUE TO PAIN WITH WALKING. Difficulty initiating urinatin: NEGATIVE. Accidents: NO. Unexplained weight loss: NO. 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 MULTILEVEL SPONDYLOSIS AND DDD WITH DISC SPACE NARROWING. 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 Recent major surgery: HYSTERECTOMY, HERNIA REPAIR. OTEHR: PATIENT REPORTS SHE IS SKEPTICAL ABOUT PT WORKING AND IS WONDERING IF SHE SHOULD GO TO A CHIROPRACTOR BUT THE DOCTOR RECOMMENDED PT. PATIENT REPORTS SHE WAS DOING WATER EX'S HERE AT [facility] ON HER OWN BEFORE SHE HAD HER HIP REPLACEMENT BUT HASN'T BEEN IN THE POOL SINCE HER SURGERY. - Objective Sitting/Standing Posture: POOR. Lordosis: DECREASED. Lateral shift: NO. Relevant shift: N/A. Active Correction of posture: BETTER. Other Observations : INDEP GAIT INTO PT WITHOUT ANY ASSISTIVE DEVICES BUT GAIT IS SLOW AND ANTALGIC. NO LOB. PATIENT IS ABLE TO INDEP;LY TRANSFER FROM SIT TO STAND WITHOUT UE ASSIST BUT IT IS SLOW AND DIFFICULT. Motor deficit: RIGHT LE STRENGTH IS 5/5 WITH MMT'ING. LEFT LE: HIP 3+/5, KNEE EXT 4-/5, KNEE FLEX 4/5 , ANKLE DORSIFLEX 5/5. Sensory deficit: HYPERSENSATIVITY OF LEFT LATERAL THIGH COMPARED TO RIGHT. ROM deficit: TIGHT LILIANA HIP FLEXORS LEFT > RIGHT. FULL LILIANA KNEE EXT TO 115 DEG LEFT AND 120 RIGHT FLEX. RIGHT HIP FLEX ROM WFL. LEFT HIP: UNALBE TO GET TO NEUTRAL DUE TO TIGHT HIP FLEXORS AND ONLY ABLE TO FLEX TO 85 DEG. PAIN WITH LEFT HIP ROM TESTING. Reflexes: 2/3 LILIANA LE'S. Dural Signs: POSITIVE LILIANA LE'S LEFT > RIGHT. Lumbar mvmt loss: flex - MOD. ext - CATRACHITO. R SG - CATRACHITO. L SG - CATRACHITO. PATIENT C/O PAIN WITH LUMBAR FLEX AND RIGHT SG TESTING. SHE IS UNABLE TO EXTEND HER LUMBAR SPINE AND DOES NOT GET QUITE TO NEUTRAL. Core strength: POOR. Palpation: NO ACUTE TENDERNESS WITH PALPATION OF LOWER THORACIC, LUMBAR OR HIP REGIONS. 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 SHE STATED SHE DID NOT HAVE AQUATIC PHYSICAL THERAPY - THAT IT WAS NOT A THERAPIST HELPING HER IN THE POOL - BUT THIS PT FOUND RECORDS FOR AQUATIC PHYSICAL THERAPY FROM 2016. LEFT HIP INCISION IS WELL HEALED. - Goals Goal 1:: DECREASE C/O BACK PAIN Goal Time Frame: 4-6 Weeks Goal 2:: IMRPOVE SITTING, STANDING, WALKING, ADL, AND SLEEP FUNCTION Goal Time Frame: 4-6 Weeks Goal 3:: INSTRUCT IN PROPHYLAXIS Goal Time Frame: 4-6 Weeks - Rehabilitation Potential Rehabilitation Potential: Fair - Anticipated Interventions Patient/Client Instruction: Educate patient on: Condition, Plan of Care, Risk Factors, Benefits of Fitness Program For the Purpose of:: To improve self management Therapeutic Exercise to Include: Strength training, Body mechanics, Postural training, Flexibilty training, In an aquatic setting, Dynamic Lumbar Stabilization For the Purpose of:: To decrease pain, To increase ROM, To improve muscle performance and motor function, To increase tolerance to activity/condition/ position, To improve ability of physical actions for home/community/work/leisure , To improve gait and locomotor functions Thank you for the opportunity to evaluate your patient. For Medicare and Medicare HMO plans, please review the plan of care and approve it. It will need to be FAXED BACK to us at [phone] for Medicare purposes. Please let me know if there are questions or concerns regarding this plan of care. Physician Signature: Date:
--- NOTE | 2017-11-30 15:55 | HP.PTREVAL ---
Agus Malik, It has been my pleasure to treat ALEXUS TATE over the last 10 visits for BACK PAIN. Please see the progress note below for an update on the physical therapy plan of care! Subjective: PATIENT REPORTS HER LEFT HIP ISN'T WORKIING WELL TODAY AND SHE RELATES IT TO POSSIBLY SLEEPING ON IT WRONG OR THE WEATHER. THE PAIN TODAY IS IN HER LEFT BUTTOCK AND SHE WOKE UP WITH IT. SHE ALSO REPORTS SHE FELT A SNAP OR A CRACK IN HER LEFT ANKLE WHEN SHE WAS WALKING THIS MORNING AND EVERY ONCE IN A WHILE WHEN SHE WALKS ON IT IT IT STILL HURTS. SHE REPORTS SHE CAN MOVE HER ANKLE AROUND IN SITTING FINE WITH NO PAIN. PATIENT REPORTS THAT SHE IS WALKING BETTER OVER ALL SINCE STARTING PT THIS TIME THOUGH. SHE DOESN'T HAVE TO SIT DOWN OFTEN AND HER LEFT HIP AND THIGH SORENESS IS MUCH BETTER EXCEPT THE BUTTOCK AREA THAT IS BOTHERING HER TODAY. SHE REPORTS HER BACK PAIN IS STAYING THE SAME AND SHE HAS HAD IT FOR 40 YEARS. PATIENT REPORTS SHE DOES LIKE THE WATER THERAPY AND IT HAS HELPED BUT SHE DOESN'T THINK IT HAS HELPED ENOUGH YET. PATIENT REPORTS SHE HAS A [employer] MEMBERSHIP HERE BUT SHE DOESN'T THINK SHE HAS EVER USED IT. SHE REPORTS SHE DEFINATELY WANTS TO HAVE MORE PHYSICAL THERAPY IN THE POOL IF POSSIBLE. PATIENT REPORTS HER PAIN IS 8-9/10 AT ITS WORST AND 0/10 AT TIMES NOW. Objective/Function: PATIENT IS TOLERATING A SLOW PROGRESSION OF PRE IN THE POOL AND HER HIP PAIN IS MUCH BETTER PER PATIENT REPORT BUT HER BACK OSWESTRY SCORE HAS NOT SIGNIFICANTLY CHANGED AND HER BACK PAIN IS ABOUT THE SAME. SHE MAY BENEFIT FROM TRIAL OF TRANSITION OF AQUATIC THERAPY TO INDEP WATER EX AND/OR PHYSICIAN RE-CHECK. SHE HAS NEW C/O'S TODAY PER SUBJECTIVE ABOVE. SHE DEMO'S INDEP GAIT INTO PT WITH A STRAIGHT CANE AND GAIT IS SLOW AND ANTALGIC TODAY. SHE REPORTS SHE DOESN'T USE THE CANE IN HER HOUSE BUT IF SHE GOES AWAY SHE DOES AND IT HELPS A LOT. NO LOB WALKING INTO PT. PATIENT IS ABLE TO INDEP'LY TRANSFER FROM SIT TO STAND WITHOUT UE ASSIST WITH LESS DIFFICULTY TODAY COMPARED TO INITIAL EVAL. Motor deficit: RIGHT LE STRENGTH IS 5/5 WITH MMT'ING. LEFT LE: HIP 3+/5, KNEE EXT 4-/5, KNEE FLEX 4/5, ANKLE DORSIFLEX 5/5. PATIENT IS ABLE TO RESIST A LITTLE BIT WITH LEFT HIP FLEXION BUT IT PROVOKES MILD INCREASED LEFT LATERAL HIP/THIGH PAIN. PATIENT IS ABLE TO DO DOUBLE HEEL RAISING WITHOUT C/O PAIN. Sensory deficit: THE HYPERSENSATIVITY OF LEFT LATERAL THIGH COMPARED TO RIGHT IS GONE NOW. LILIANA LE LIGHT TOUCH SENSATION IS INTACT AND SYMMETRICAL AND PATIENT DENIES HAVING ANY NUMBNESS. ROM deficit: TIGHT LILIANA HIP FLEXORS LEFT > RIGHT. FULL LILIANA KNEE EXT TO 121 DEG LEFT AND 124 RIGHT FLEX. RIGHT HIP FLEX ROM WFL. LEFT HIP: UNALBE TO GET TO NEUTRAL DUE TO TIGHT HIP FLEXORS AND ONLY ABLE TO FLEX TO 90 DEG. PATIENT CONTINUES TO HAVE PAIN WITH LEFT HIP ROM TESTING. Reflexes: 2/3 LILIANA LE'S. Dural Signs: NEGATIVE RIGHT LE AND POSITIVE LLE. Lumbar mvmt loss: flex - MIN TO MOD. ext - CATRACHITO. R SG - CATRACHITO. L SG - MOD. PATIENT C/O PAIN WITH LUMBAR FLEX AND RIGHT SG TESTING. SHE IS UNABLE TO EXTEND HER LUMBAR SPINE AND DOES NOT GET QUITE TO NEUTRAL. Core strength: POOR. Palpation: NO ACUTE TENDERNESS WITH PALPATION OF LOWER THORACIC, LUMBAR OR HIP REGIONS EXCEPT LEFT SI REGION. ADVISED PATIENT TO CALL HER DOCTOR OR GO TO THE EMERGENCY ROOM IF PAIN DOES NOT GET BETTER OR WORSENS. Plan Plan: CONT PT 2X'S A WEEK X 2 WEEKS THEN 1X/WEEK X 2 -3 WEEKS FOR AQUATIC THERAPY FOR PAIN RELEIF, POSTURE CORRECTION/STRENGTHENING, INSTRUCTION IN APPROPRIATE BODY MECHANICS AND ACTIVITY MODIFICATIONS. DLS STARTING WITH A NEUTRAL SPINE PROGRESSING ROM TOLERATED. LILIANA LE ROM, STRETCHING AND STRENGTHENING. HEP INSTRUCTION. PATIENT IS AGREEABLE TO THIS POC. Goals Goal 1:: DECREASE C/O BACK PAIN Goal Time Frame: 4-6 Weeks Goal Progress: Not Progressing Goal 2:: IMRPOVE SITTING, STANDING, WALKING, ADL, AND SLEEP FUNCTION Goal Time Frame: 4-6 Weeks Goal 3:: INSTRUCT IN PROPHYLAXIS Goal Time Frame: 4-6 Weeks Anticipated Interventions Patient/Client Instruction: Educate patient on: Condition, Plan of Care, Risk Factors, Benefits of Fitness Program For the Purpose of:: To improve self management Therapeutic Exercise to Include: Strength training, Body mechanics, Postural training, Flexibilty training, In an aquatic setting, Dynamic Lumbar Stabilization For the Purpose of:: To decrease pain, To increase ROM, To improve muscle performance and motor function, To increase tolerance to activity/condition/position, To improve ability of physical actions for home/community/work/leisure, To improve gait and locomotor functions Please do not hesitate to contact me at [phone] by phone or if you have questions or concerns regarding this new plan of care! Sincerely, Scarlett Slater
--- NOTE | 2018-05-17 16:47 | HP.PTDCSUM ---
HP - PT D/C Summary It has been my pleasure to treat ALEXUS TATE under orders from Augs Malik MD, for the diagnosis of BACK PAIN for a total of 17 visit(s). Discharge Date: 12/26/17 Please see the following information for a summary of their discharge status. - Subjective Subjective: PATIENT REPORTS THAT WATER THERAPY IS REALLY HELPING BUT SHE THINKS A LOT OF HER PAIN IS FROM THE RAIN. PATIENT REPORTS SHE HAS DONE QUITE A BIT OF TRAVELING LATELY AND SHE DID FINE. HER PAIN GETS UP TO 3-4/10 AT WORST NOW. SHE REPORTS SHE JUST DOESN'T HURT A LOT ANYMORE. - Pain L LB Pain Intensity (Out of 10): 2 L hip Pain Intensity (Out of 10): 0 LEFT BUTTOCK Pain Intensity (Out of 10): 0 - Overall Improvement % Improvement: 80 - Objective Objective/Function: Motor deficit: LILIANA LE STRENGTH IS 5/5 WITH MMT'ING NOW. THE LEFT LE HAS GREATLY IMPROVED SINCE LAST RE-CHECK. FULL LILIANA KNEE EXT TO 130 DEG LEFT AND 126 RIGHT FLEX. RIGHT HIP FLEX ROM WFL. LEFT HIP: ABLE TO FLEX LEFT HIP TO 100 DEG NOW WITHOUT C/O PAIN. Dural Signs: NEGATIVE LILIANA LE DURAL SIGNS. Lumbar mvmt loss: flex - NIL. ext - CATRACHITO. R SG - MOD. L SG - MOD. PATIENT DENIES PAIN WITH LUMBAR ROM TESTING. SHE IS UNABLE TO EXTEND HER LUMBAR SPINE BUT IS NOW ABLE TO GET TO NEUTRAL. BACK OSWESTRY SCORE HAS IMPROVED FROM 27 TO 18. - Goals Goal 1:: DECREASE C/O BACK PAIN Goal Progress: Goal Met Goal 2:: IMRPOVE SITTING, STANDING, WALKING, ADL, AND SLEEP FUNCTION Goal Progress: Goal Met Goal 3:: INSTRUCT IN PROPHYLAXIS Goal Progress: Goal Met - Plan Plan: D/C TO [facility] WITH [employer] MEMBERSH[facility]. PATIENT AGREEABLE. - D/C Information If there are questions or concerns regarding this patient's physical therapy, please feel free to call me at [phone]. Thank you for the referral of this patient. Sincerely, Scarlett Slater, PT, Cert MDT
== END 2017-12-26 19:00 | disposition home or self-care (01) ==
LOC: PT 14:00
PROVIDERS: Family Provider Family Medicine; PCP Family Medicine; Visit Provider Family Medicine
DX: M54.5 Low back pain (principal)
CPT/HCPCS: 97113; 97162; 97164; 97530

== ENCOUNTER → 2018-05-20 10:47 | Outpatient (CLI) | payer MEDICARE, SELFPAY ==
[2018-03-22 10:03] VITALS: BMI 32.3
[2018-05-20 12:45] LABS: Anion Gap 5 (5-15); BUN 17 mg/dL (7-18); BUN/Creat Ratio 20.9 RATIO (10-20); Calcium,Total 8.5 mg/dL (8.5-10.1); Chloride 108 mmol/L (98-107); Cholesterol 185 mg/dL (200); Creatinine, Serum 0.82 mg/dL (0.55-1.02); EST Glomerular Filtration Rate 73 mL/min (>60); Est Glom Filt Rate - Afr Amer 88 mL/min (>60); Glucose 110 mg/dL (74-106); High Density Lipoprotein 60 mg/dL; Sodium Level 142 mmol/L (136-145); Triglycerides 91 mg/dL; Very Low Density Lipoprotein 18 mg/dL (5-40)
== END ==
PROVIDERS: Family Provider Family Medicine; PCP Family Medicine; Referring Provider Family Medicine; Visit Provider Family Medicine
DX: I10 Essential (primary) hypertension (principal); E78.00 Pure hypercholesterolemia, unspecified
CPT/HCPCS: 36415; 80048; 80061

== ENCOUNTER → 2018-06-24 | Outpatient (CLI) | payer MEDICARE, SELFPAY ==
[2018-03-22 10:03] VITALS: BMI 32.3
[2018-06-24 17:53] LABS: Absolute Lymphocyte Count 3.35 X10^3/ul (0.83-4.51); Absolute Neutrophil Count 3.4 X10^3/uL (2.0-7.7); Basophil# 0.01 X10^3/uL; Basophil% 0.1 % (0-1); Eosinophil# 0.14 X10^3/uL; Eosinophils% 1.9 % (0-5); Hematocrit 40.8 % (37-47); Hemoglobin 13.2 g/dl (12.0-15.0); Lymphocyte # 3.35 X10^3/ul (4.0); Lymphocyte % 45.4 % (19-41); Mean Corp Hgb Conc 32.4 g/gl (32-36); Mean Corpuscular Hgb 30.7 pg (27.0-32.0); Mean Corpuscular Volume 94.9 fL (81-99); Mean Platelet Vol. 9.8 fl (6.2-12.0); Monocyte# 0.47 X10^3/uL; Monocyte% 6.4 % (0-10); Neutrophil % 46.1 % (47-70); Platelet Count 320 K/mm3 (150-450); RBC Distribution Width CV 13.6 % (11.6-14.6); White Blood Count 7.4 K/mm3 (4.4-11.0)
[2018-06-24 17:56] LABS: POSITIVE COUNT NO; POSITIVE DIFFERENTIAL NO; POSITIVE MORPHOLOGY NO
[2018-06-24 18:21] LABS: AST(SGOT) 29 U/L (15-37); Alanine Aminotransfer ALT/SGPT 34 U/L (13-56); Albumin, Serum 3.9 g/dL (3.2-5.0); Alkaline Phosphatase 98 U/L (45-117); Anion Gap 6 (5-15); BUN 10 mg/dL (7-18); BUN/Creat Ratio 15.5 RATIO (10-20); Calcium,Total 8.9 mg/dL (8.5-10.1); Chloride 106 mmol/L (98-107); Creatinine, Serum 0.65 mg/dL (0.55-1.02); EST Glomerular Filtration Rate 95 mL/min (>60); Est Glom Filt Rate - Afr Amer 115 mL/min (>60); Globulin 3.9 g/dL (2.2-4.2); Glucose 73 mg/dL (74-106); Potassium 3.8 mmol/L (3.5-5.1); Protein, Total 7.8 g/dL (6.4-8.2); Sodium Level 139 mmol/L (136-145); Thyroid Stim Hormone (TSH) 1.32 uIU/mL (0.358-3.74)
== END | disposition home or self-care (01) ==
LOC: MFPLAB 15:38
PROVIDERS: Family Provider Family Medicine; PCP Family Medicine; Visit Provider Family Medicine
DX: Z01.818 Encounter for other preprocedural examination (principal)
CPT/HCPCS: 36415; 80053; 84443; 85025

== ENCOUNTER → 2018-11-20 11:04 | Outpatient (CLI) | payer MEDICARE, SELFPAY ==
[2018-03-22 10:03] VITALS: BMI 32.3
--- NOTE | 2018-11-20 11:14 | VDLE_ITS ---
Reason For Study: Rt leg pain RIGHT GSV is normal. CFV is compressible, spontaneous, phasic, competent and demonstrates normal augmentation. FV is compressible, spontaneous, phasic, competent and demonstrates normal augmentation. POP V is compressible, spontaneous, phasic, competent and demonstrates normal augmentation. T/P Trunk is compressible. PTV is compressible. RT PerV is compressible. Procedure Exam performed in department. A preliminary report was called and/or faxed to [facility]. Interpretation Summary Deep veins of the right lower extremity are patent and compressible segmentally. There is no evidence of right lower extremity deep vein thrombosis. Valvular competence appears intact within the proximal deep venous system on the right . The right great saphenous vein appears patent and compressible segmentally. Ordering Physician: Agus Malik Referring Physician: Agus Malik Performed By: Raine Webb RVT
[2018-11-20 12:59] LABS: Anion Gap 5 (5-15); BUN 14 mg/dL (7-18); BUN/Creat Ratio 17.6 RATIO (10-20); Calcium,Total 9.1 mg/dL (8.5-10.1); Chloride 110 mmol/L (98-107); EST Glomerular Filtration Rate 75 mL/min (>60); Est Glom Filt Rate - Afr Amer 91 mL/min (>60); Glucose 82 mg/dL (74-106); Sodium Level 142 mmol/L (136-145)
== END ==
PROVIDERS: Family Provider Family Medicine; PCP Family Medicine; Referring Provider Family Medicine; Visit Provider Family Medicine
DX: M79.604 Pain in right leg (principal); I10 Essential (primary) hypertension
CPT/HCPCS: 36415; 80048; 93971

== ENCOUNTER → 2019-11-20 08:14 | Outpatient (CLI) | payer MEDICARE, SELFPAY ==
[2018-03-22 10:03] VITALS: BMI 32.3
[2019-11-20 10:08] LABS: Anion Gap 6 (5-15); BUN 11 mg/dL (7-18); BUN/Creat Ratio 15.2 RATIO (10-20); Chloride 108 mmol/L (98-107); Cholesterol 150 mg/dL (200); Creatinine, Serum 0.72 mg/dL (0.55-1.02); EST Glomerular Filtration Rate 83 mL/min (>60); Est Glom Filt Rate - Afr Amer 101 mL/min (>60); Glucose 82 mg/dL (74-106); High Density Lipoprotein 58 mg/dL; Potassium 4.2 mmol/L (3.5-5.1); Sodium Level 143 mmol/L (136-145); Triglycerides 57 mg/dL; Very Low Density Lipoprotein 11 mg/dL (5-40)
== END ==
PROVIDERS: PCP Family Medicine; Referring Provider Family Medicine; Visit Provider Family Medicine
DX: I10 Essential (primary) hypertension (principal)
CPT/HCPCS: 36415; 80048; 80061

== ENCOUNTER → 2020-05-26 11:17 | Outpatient (CLI) | payer MEDICARE, SELFPAY ==
[2018-03-22 10:03] VITALS: BMI 32.3
[2020-05-26 12:25] LABS: Anion Gap 10 (5-15); BUN 18 mg/dL (7-18); BUN/Creat Ratio 22.3 RATIO (10-20); Calcium,Total 9.4 mg/dL (8.5-10.1); Chloride 105 mmol/L (98-107); Cholesterol 160 mg/dL (200); Creatinine, Serum 0.81 mg/dL (0.55-1.02); EST Glomerular Filtration Rate 73 mL/min (>60); Est Glom Filt Rate - Afr Amer 89 mL/min (>60); Glucose 77 mg/dL (74-106); High Density Lipoprotein 70 mg/dL; Potassium 4.3 mmol/L (3.5-5.1); Sodium Level 141 mmol/L (136-145); Triglycerides 49 mg/dL; Very Low Density Lipoprotein 10 mg/dL (5-40)
[2020-05-26 16:13] LABS: Microalbumin,Random Urine 13.3 mg/L (NO RANGE EST.)
== END ==
PROVIDERS: PCP Family Medicine; Referring Provider Family Medicine; Visit Provider Family Medicine
DX: I10 Essential (primary) hypertension (principal)
CPT/HCPCS: 36415; 80048; 80061; 82043

== ENCOUNTER → 2020-11-24 11:47 | Outpatient (CLI) | payer MEDICARE, SELFPAY ==
[2020-11-24 15:42] LABS: Anion Gap 7 (5-15); BUN 17 mg/dL (7-18); BUN/Creat Ratio 18.8 RATIO (10-20); Calcium,Total 9.1 mg/dL (8.5-10.1); Chloride 107 mmol/L (98-107); Cholesterol 197 mg/dL (200); Creatinine, Serum 0.91 mg/dL (0.55-1.02); EST Glomerular Filtration Rate 64 mL/min (>60); Est Glom Filt Rate - Afr Amer 78 mL/min (>60); Glucose 84 mg/dL (74-106); High Density Lipoprotein 61 mg/dL; Potassium 3.9 mmol/L (3.5-5.1); Sodium Level 142 mmol/L (136-145); Triglycerides 91 mg/dL; Very Low Density Lipoprotein 18 mg/dL (5-40)
== END ==
PROVIDERS: PCP Family Medicine; Referring Provider Family Medicine; Visit Provider Family Medicine
DX: I10 Essential (primary) hypertension (principal)
CPT/HCPCS: 36415; 80048; 80061

== ENCOUNTER 2021-05-25 11:57 | Outpatient (CLI) | payer MEDICARE, SELFPAY ==
[2021-05-25 15:39] LABS: ALB/GLOB Ratio 0.9 RATIO (0.9-2.4); AST(SGOT) 31 U/L (15-37); Alanine Aminotransfer ALT/SGPT 37 U/L (13-56); Albumin, Serum 3.7 g/dL (3.2-5.0); Alkaline Phosphatase 91 U/L (45-117); Anion Gap 5 (5-15); BUN 17 mg/dL (7-18); BUN/Creat Ratio 22.5 RATIO (10-20); Calcium,Total 9.1 mg/dL (8.5-10.1); Chloride 108 mmol/L (98-107); Cholesterol 171 mg/dL (200); Creatinine, Serum 0.76 mg/dL (0.55-1.02); EST Glomerular Filtration Rate 79 mL/min (>60); Est Glom Filt Rate - Afr Amer 96 mL/min (>60); Globulin 4.2 g/dL (2.2-4.2); Glucose 85 mg/dL (74-106); High Density Lipoprotein 70 mg/dL; Potassium 4.1 mmol/L (3.5-5.1); Protein, Total 7.9 g/dL (6.4-8.2); Sodium Level 140 mmol/L (136-145); Triglycerides 54 mg/dL; Very Low Density Lipoprotein 11 mg/dL (5-40)
== END 2021-05-25 23:59 | disposition home or self-care (01) ==
LOC: MFPLAB 11:58
PROVIDERS: PCP Family Medicine; Referring Provider Family Medicine; Visit Provider Family Medicine
DX: E78.00 Pure hypercholesterolemia, unspecified (principal)
CPT/HCPCS: 36415; 80053; 80061

== ENCOUNTER → 2021-07-05 | Outpatient (CLI) | payer MEDICARE, SELFPAY ==
--- NOTE | 2021-07-05 09:59 | BI_ITS ---
MAMMOGRAPHY - BILATERAL SCREENING REASON FOR EXAM: Female, 76 years old. Routine annual screening examination. PERTINENT HISTORY: Aunt with breast cancer. Remote right stereotactic breast biopsy. TECHNIQUE: Digital bilateral breast mikayla (3D mammographic acquisition) in the CC and MLO projections. 2-D mediolateral oblique (MLO) and craniocaudad (CC) views of both breasts were obtained. CAD: Full Field Digital Mammography with Computer Added Detection was performed. COMPARISON: Comparison is made with prior study dated 03/02/2017. FINDINGS: Breast Composition: There are scattered areas of fibroglandular density. There are no dominant masses or suspicious calcifications. Stable asymmetry of breast tissue. Normal breast tissue is seen in the upper-outer quadrant of the left breast compared to the left side. No other significant abnormalities are identified. There has been no significant change since the prior study. BI/SCRN MAMM (CAD)W/MIKAYLA BILAT IMPRESSION: Stable bilateral screening mammogram. Yearly follow-up mammogram recommended. (A) ASSESSMENT CATEGORY: BIRADS Category 2: Benign. A letter regarding these results will be sent to the patient by the facility within 30 days. Approximately 10% of breast cancers are not detected by mammography. A normal mammogram should not delay biopsy of a clinically suspicious abnormality. [id number] Electronically Signed: Nawaf Samayoa MD at 10:42 EDT ,
== END | disposition home or self-care (01) ==
LOC: OPBI 09:47
PROVIDERS: PCP Family Medicine; Referring Provider Internal Medicine Medical Oncology; Visit Provider Internal Medicine Medical Oncology
DX: Z12.31 Encounter for screening mammogram for malignant neoplasm of breast (principal)
CPT/HCPCS: 77063; 77067

== ENCOUNTER → 2021-11-09 | Outpatient (CLI) | payer MEDICARE, SELFPAY ==
--- NOTE | 2021-11-09 10:57 | RAD_ITS ---
STUDY: X-RAY - RIGHT SHOULDER REASON FOR EXAM: Female, 76 years old. Pain. TECHNIQUE: 4 view(s) of the shoulder. COMPARISON: 06/25/2012. FINDINGS: Osteopenia. Mild arthrosis of the glenohumeral joint. Mild arthrosis of the AC joint. Normal acromion. Sclerosis and cystic changes of the humeral head. The soft tissue structures are unremarkable. Normal visualized pulmonary apex. RAD/Shoulder min 2 Views IMPRESSION: Osteopenia with sclerosis and cystic changes of the humeral head. Mild arthrosis of the glenohumeral and acromioclavicular joints. No acute abnormality or erosive changes. Electronically Signed: Taz Mehta, at 9:43 EDT ,
--- NOTE | 2021-11-09 10:57 | RAD_ITS ---
STUDY: X-RAY - RIGHT WRIST REASON FOR EXAM: Female, 76 years old. PAIN. No history of injury. TECHNIQUE: 3 view(s) of the wrist were obtained. COMPARISON: None. FINDINGS: Normal visualized distal radius and ulna. Normal radiocarpal articulation. Normal distal radioulnar articulation. Normal carpal bones. Normal carpal articulations. Normal carpometacarpal articulation of the thumb. Normal second through fifth carpometacarpal articulations. Normal visualized metacarpal bones. Mild soft tissue swelling. RAD/Wrist min 3 Views IMPRESSION: Mild soft tissue swelling. Electronically Signed: Nawaf Samayoa MD at 15:22 EDT ,
[2021-11-09 12:42] LABS: Anion Gap 6 (5-15); BUN 11 mg/dL (7-18); BUN/Creat Ratio 14.7 RATIO (10-20); Calcium,Total 9.6 mg/dL (8.5-10.1); Chloride 106 mmol/L (98-107); Cholesterol 173 mg/dL (200); Creatinine, Serum 0.75 mg/dL (0.55-1.02); EST Glomerular Filtration Rate 80 mL/min (>60); Est Glom Filt Rate - Afr Amer 97 mL/min (>60); Glucose 77 mg/dL (74-106); High Density Lipoprotein 70 mg/dL; Potassium 4.1 mmol/L (3.5-5.1); Sodium Level 141 mmol/L (136-145); Triglycerides 118 mg/dL; Very Low Density Lipoprotein 24 mg/dL (5-40)
== END | disposition home or self-care (01) ==
LOC: MTLAB 10:55
PROVIDERS: PCP Family Medicine; Referring Provider Family Medicine; Visit Provider Family Medicine
DX: M25.531 Pain in right wrist (principal); M25.511 Pain in right shoulder; I10 Essential (primary) hypertension
CPT/HCPCS: 36415; 73030; 73110; 80048; 80061

== ENCOUNTER 2022-01-05 15:00 | Outpatient (RCR) | payer MEDICARE, SELFPAY ==
--- NOTE | 2021-12-06 16:07 | HP.OTEVAL ---
Patient's Visit Information ALEXUS TATE is a 76 year old F, referred to Occupational Therapy by Dr. Josiah Carrera DO, with a diagnosis of right DeQuervain's. Date of Evaluation: 12/06/21 Occupational Therapist: Talia Willis, ERON/Alfa, CHT - Subjective This 76 year old female was seen for OT eval with dx of DeQuervain's/ radial styloid tenosynovitis. Pt states is right handed. pt states pain started end of Sep. maybe part of Oct. 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 pt would like to decrease pain to return to performing her daily tasks and cleaning. - ADLs Household: Vacuum, Sweep/mop - Pain right wrist 1 Pain Intensity Range: 7 - ROM Wrist: right 40/15 left 60/45 CMC: right 5 left 5 MP: right 55 left 58 IP: right 35 left 45 ROM Comments: Right UD [address] RD 10. 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 pt is right handed and due to pain limited with ADls and IADLs. pt would benefit from skilled OT services 1-2x week for 4 weeks to decrease pain, increase strength to return pt to PLOF with ADLs and IADLs . Today therapist ed. pt on treatment- need of brace use with daily tasks, along with ed. on precautions and ergo. of wrist use with ALDs. pt demo understanding and agree to POC. Rehabilitation Potential: Good - Anticipated Interventions A/AAROM/PROM, Triggerpoint Release, Modalities, Orthoses, Joint Protection/Energy Conservation, Fine Motor Coord/Jaden, Education re assistive Equipment, Education re Diagnosis, Home Program - Visit Plan TEXT: Thank you for the opportunity to evaluate your patient. For Medicare and Medicare HMO plans, please review the plan of care and approve it. It will need to be FAXED BACK to us at [phone] for Medicare purposes. Please let me know if there are questions or concerns regarding this plan of care. Physician Signature: Date:
--- NOTE | 2022-01-05 15:24 | HP.OTDCSUM_ITS ---
It has been my pleasure to treat ALEXUS TATE under orders from Dr. Josiah Carrera DO, for the diagnosis of right DeQuervain's for a total of 6 visit(s). Please see the following information for a summary of their discharge status. % Improvement: 80 Objective/Function: right wrist 55/30 a increase from initial eval 40/15. 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 right lateral pinch 6# a increase from unable Patient Goals: Decrease Pain, Use Hand/Wrist/Arm Normally Again Goal:100% adherence to protocol: Yes Goal:ROM equal to unaffected hand: Yes Goal:Package Yarns Drying Machine Operator/Pinch strength at least 75% of unaffected hand: Yes Goal:No pain with affected hand use: Yes Goal:Full use of affected hand in daily activities including: Yes Plan: cont with US as pt does not want to pay for ionto Discharge Comments: pt was seen for 6 OT sessions- therapist ida. thumb spica orthosis for pt to use-and currently is using as needed- as well as ed. pt on joint protection and wrist ergonomics with work tasks-pt made great gains in ROM and strength because pain subsided- pt at this has met OT goals and is d/c. pt to return to Dr. if she has further issues If there are questions or concerns regarding this patient's occupational therapy, please fell free to call me at [phone]. Thank you for the referral of this patient. Sincerely, Talia Willis, OTR/L, CHT
== END 2022-01-05 19:00 | disposition home or self-care (01) ==
LOC: OT 15:00
PROVIDERS: PCP Family Medicine; Referring Provider Orthopaedic Surgery; Visit Provider Orthopaedic Surgery
DX: M65.4 Radial styloid tenosynovitis [de Quervain] (principal)
CPT/HCPCS: 97035; 97110; 97140; 97166; 97530

== ENCOUNTER → 2022-05-08 | Outpatient (CLI) | payer MEDICARE, SELFPAY ==
[2022-05-08 18:33] LABS: Anion Gap 7 (5-15); BUN 16 mg/dL (7-18); BUN/Creat Ratio 20.2 RATIO (10-20); Calcium,Total 9.6 mg/dL (8.5-10.1); Chloride 106 mmol/L (98-107); Cholesterol 169 mg/dL (200); Creatinine, Serum 0.79 mg/dL (0.55-1.02); EST Glomerular Filtration Rate 75 mL/min (>60); Est Glom Filt Rate - Afr Amer 90 mL/min (>60); Glucose 80 mg/dL (74-106); High Density Lipoprotein 78 mg/dL; Potassium 3.7 mmol/L (3.5-5.1); Sodium Level 140 mmol/L (136-145); Triglycerides 70 mg/dL; Very Low Density Lipoprotein 14 mg/dL (5-40)
== END | disposition home or self-care (01) ==
LOC: MFPLAB 15:44
PROVIDERS: PCP Family Medicine; Visit Provider Family Medicine
DX: I10 Essential (primary) hypertension (principal)
CPT/HCPCS: 36415; 80048; 80061

== ENCOUNTER 2022-06-05 15:52 | Emergency (ER) | payer MEDICARE, SELFPAY ==
[2022-06-05 15:53] VITALS: BP 155/77; PULSE 72; RESP 16; TEMP 36.6; O2SAT 98
[2022-06-05 16:38] VITALS: BMI 33.0
[2022-06-05 16:41] VITALS: O2SAT 98
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
[2022-06-05] MEDS: HYDROcodone Bitartrate/Apap 5/325 Tablet PO (16:53)
[2022-06-05 16:56] LABS: Absolute Lymphocyte Count 2.99 X10^3/uL (0.83-4.51); Absolute Neutrophil Count 2.5 X10^3/uL (2.0-7.7); Basophil# 0.03 X10^3/uL; Basophil% 0.5 % (0-1); Eosinophil# 0.08 X10^3/uL; Eosinophils% 1.3 % (0-5); Hematocrit 38.5 % (37-47); Hemoglobin 12.6 g/dL (12.0-15.0); Lymphocyte # 2.99 X10^3/ul (0.83-4.51); Lymphocyte % 48.6 % (19-41); Mean Corp Hgb Conc 32.7 g/dL (32-36); Mean Corpuscular Hgb 31.6 pg (27.0-32.0); Mean Corpuscular Volume 96.5 fL (81-99); Mean Platelet Vol. 9.2 fl (6.2-12.0); Monocyte# 0.55 X10^3/uL; Monocyte% 8.9 % (0-10); NRBC Flagged by Analyzer 0 % (0-5); Neutrophil # 2.47 X10^3/uL (2.7-7.7); Neutrophil % 40.2 % (47-70); Platelet Count 277 K/mm3 (150-450); RBC Distribution Width CV 13.3 % (11.6-14.6); RBC Distribution Width SD 47.7 fl (35.1-43.9); Red Blood Count 3.99 M/mm3 (4.2-5.4); White Blood Count 6.2 K/mm3 (4.4-11.0)
[2022-06-05 17:12] LABS: AST(SGOT) 36 U/L (15-37); Alanine Aminotransfer ALT/SGPT 34 U/L (13-56); Albumin, Serum 3.7 g/dL (3.2-5.0); Alkaline Phosphatase 70 U/L (45-117); Anion Gap 4 (5-15); BUN 14 mg/dL (7-18); BUN/Creat Ratio 18.9 RATIO (10-20); Calcium,Total 9.2 mg/dL (8.5-10.1); Chloride 108 mmol/L (98-107); Creatinine, Serum 0.74 mg/dL (0.55-1.02); EST Glomerular Filtration Rate 81 mL/min (>60); Est Glom Filt Rate - Afr Amer 98 mL/min (>60); Estimated Creatinine Clearance 33.84 ml/min; Globulin 3.7 g/dL (2.2-4.2); Glucose 75 mg/dL (74-106); Potassium 3.9 mmol/L (3.5-5.1); Protein, Total 7.4 g/dL (6.4-8.2); Sodium Level 140 mmol/L (136-145)
[2022-06-05 18:46] VITALS: BP 176/79; PULSE 80; PULSE 84; RESP 18; O2SAT 97
== END 2022-06-05 18:49 | disposition home or self-care (01) ==
PROVIDERS: Emergency Provider Emergency Medicine; PCP Family Medicine; Visit Provider Emergency Medicine
DX: S20.20XA Contusion of thorax, unspecified, initial encounter (principal); Y92.410 Unspecified street and highway as the place of occurrence of the external cause; Z87.891 Personal history of nicotine dependence; Z86.73 Personal history of transient ischemic attack (TIA), and cerebral infarction without residual deficits; Z96.649 Presence of unspecified artificial hip joint; V89.2XXA Person injured in unspecified motor-vehicle accident, traffic, initial encounter
CPT/HCPCS: 71250; 80053; 85025; 93005; 99285

== ENCOUNTER → 2022-06-08 | Outpatient (CLI) | payer MEDICARE, SELFPAY ==
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
== END | disposition home or self-care (01) ==
LOC: MTRAD 12:32
PROVIDERS: PCP Family Medicine; Referring Provider Family Medicine; Visit Provider Family Medicine
DX: R07.9 Chest pain, unspecified (principal); V89.2XXA Person injured in unspecified motor-vehicle accident, traffic, initial encounter
CPT/HCPCS: 71046

== ENCOUNTER → 2022-09-11 | Outpatient (CLI) | payer MEDICARE, SELFPAY ==
--- NOTE | 2022-09-11 16:16 | RAD_ITS ---
INDICATION: PAIN EXAMINATION/TECHNIQUE: X-RAY - LEFT XR Knee 4 Views COMPARISON: FINDINGS: SOFT TISSUES: No soft tissue swelling or gas. No radiopaque foreign body. BONES/JOINTS: No acute fracture or subluxation.. Normal alignment. Preservation of the joint space.. No sclerotic or destructive changes observed. RAD/Knee 4 or More Views IMPRESSION: Negative. Electronically Signed: Luis Enrique Garcia DO at 21:27 EDT ,
== END | disposition home or self-care (01) ==
LOC: MTRAD 16:14
PROVIDERS: PCP Family Medicine; Referring Provider Family Medicine; Visit Provider Family Medicine
DX: M25.562 Pain in left knee (principal)
CPT/HCPCS: 73564

== ENCOUNTER → 2022-09-13 | Outpatient (CLI) | payer MEDICARE, SELFPAY ==
--- NOTE | 2022-09-13 15:11 | BI_ITS ---
MAMMOGRAPHY - BILATERAL SCREENING 3-D TOMOSYNTHESIS REASON FOR EXAM: Female, 77 years old. Routine screening PERTINENT HISTORY: Aunt with breast cancer.. TECHNIQUE: 2-D mammograms and 3-D Tomosynthesis of the breast (s) were performed. CAD was performed. COMPARISON: 03/02/2017 FINDINGS: The breast composition is composed of scattered fibroglandular density. Scattered benign calcifications are seen. No dense spiculated masses or suspicious microcalcifications are identified. No architectural distortion is identified. There is no skin thickening or retraction. There has been no significant change since the prior study. BI/SCRN MAMM (CAD)W/MIKAYLA BILAT IMPRESSION: No mammographic signs of malignancy. Routine yearly mammograms recommended. ASSESSMENT CATEGORY: BIRADS Category 1: Negative. A letter regarding these results will be sent to the patient by the facility within 30 days. FOLLOW UP RECOMMENDATION: Yearly follow up mammogram recommended. (A) Approximately 10% of breast cancers are not detected by mammography. A normal mammogram should not delay biopsy of a clinically suspicious abnormality. Electronically Signed: Jason Valdes MD at 19:57 EDT ,
== END | disposition home or self-care (01) ==
LOC: OPBI 15:10
PROVIDERS: PCP Family Medicine; Referring Provider Nurse Practitioner Women's Health; Visit Provider Nurse Practitioner Women's Health
DX: Z12.31 Encounter for screening mammogram for malignant neoplasm of breast (principal); Z80.3 Family history of malignant neoplasm of breast
CPT/HCPCS: 77063; 77067

== ENCOUNTER → 2022-11-09 | Outpatient (CLI) | payer MEDICARE, SELFPAY ==
[2022-11-09 18:44] LABS: Anion Gap 7 (5-15); BUN 13 mg/dL (7-18); BUN/Creat Ratio 18.2 RATIO (10-20); Calcium,Total 9.2 mg/dL (8.5-10.1); Chloride 108 mmol/L (98-107); Cholesterol 150 mg/dL (200); Creatinine, Serum 0.72 mg/dL (0.55-1.02); EST Glomerular Filtration Rate 84 mL/min (>60); Est Glom Filt Rate - Afr Amer 102 mL/min (>60); Glucose 85 mg/dL (74-106); High Density Lipoprotein 63 mg/dL; Potassium 3.6 mmol/L (3.5-5.1); Sodium Level 139 mmol/L (136-145); Triglycerides 80 mg/dL; Very Low Density Lipoprotein 16 mg/dL (5-40)
== END | disposition home or self-care (01) ==
LOC: MTLAB 15:32
PROVIDERS: PCP Family Medicine; Visit Provider Family Medicine
DX: I10 Essential (primary) hypertension (principal)
CPT/HCPCS: 36415; 80048; 80061

== ENCOUNTER → 2023-01-22 | Outpatient (CLI) | payer MEDICARE, SELFPAY ==
--- NOTE | 2023-01-22 16:18 | RAD_ITS ---
INDICATION: ACUTE BACK PAIN EXAMINATION/TECHNIQUE: X-RAY - XR Spine Lumbar Min 4 Views COMPARISON: October 30, 2017. FINDINGS: VERTEBRAE: . No fracture or acute compression deformity. Mild chronic anterior vertebral height loss in the lower thoracic spine. Mild multilevel lower thoracic and minimal lumbar endplate osteophyte formation. Facet arthropathy L3-4 L4-5 and L5-S1 is mildly worsened from prior exam with chronic unchanged degenerative grade 1 anterolisthesis L4 on L5 compared with October 30, 2017. Minimal Degenerative grade 1 retrolisthesis L1 on L2. There is mild lateral curvature of the thoracolumbar spine. Partially seen bilateral hip arthroplasty. No aggressive osseous lesion. DISCS: Mild diffuse disc height loss, most prominent L5-S1 with mild worsening from prior exam INCLUDED ABDOMEN: Included bowel gas pattern is non-obstructive. Aortic atherosclerosis. RAD/L/S Spine Min 4 Views IMPRESSION: No evidence of lumbar spinal fracture. Moderate lumbar spondylosis with multilevel lower lumbar facet arthropathy, most prominent at L4-5 with degenerative grade 1 anterolisthesis. Disc height loss most prominent at L5-S1 with mild worsening from prior exam. Electronically Signed: Martin Reilly MD at 17:02 EST Reading Location ID and State: [facility] / [place] Tel , Service support ,
== END | disposition home or self-care (01) ==
LOC: MTRAD 16:15
PROVIDERS: PCP Family Medicine; Referring Provider Family Medicine; Visit Provider Family Medicine
DX: M54.9 Dorsalgia, unspecified (principal)
CPT/HCPCS: 72110

== ENCOUNTER → 2023-05-09 | Outpatient (CLI) | payer MEDICARE, SELFPAY ==
[2023-05-09 18:07] LABS: ALB/GLOB Ratio 1.1 RATIO (0.9-2.4); AST(SGOT) 35 U/L (15-37); Alanine Aminotransfer ALT/SGPT 26 U/L (13-56); Albumin, Serum 3.8 g/dL (3.2-5.0); Alkaline Phosphatase 52 U/L (45-117); Anion Gap 9 (5-15); BUN 16 mg/dL (7-18); BUN/Creat Ratio 18.5 RATIO (10-20); Calcium,Total 9.1 mg/dL (8.5-10.1); Chloride 105 mmol/L (98-107); Cholesterol 154 mg/dL (200); Creatinine, Serum 0.87 mg/dL (0.55-1.02); EST Glomerular Filtration Rate 67 mL/min (>60); Est Glom Filt Rate - Afr Amer 81 mL/min (>60); Globulin 3.4 g/dL (2.2-4.2); Glucose 72 mg/dL (74-106); High Density Lipoprotein 79 mg/dL; Potassium 3.7 mmol/L (3.5-5.1); Protein, Total 7.2 g/dL (6.4-8.2); Sodium Level 139 mmol/L (136-145); Triglycerides 69 mg/dL; Very Low Density Lipoprotein 14 mg/dL (5-40)
== END | disposition home or self-care (01) ==
LOC: MFPLAB 16:03
PROVIDERS: PCP Family Medicine; Visit Provider Family Medicine
DX: E78.00 Pure hypercholesterolemia, unspecified (principal)
CPT/HCPCS: 36415; 80053; 80061

== ENCOUNTER → 2023-11-09 | Outpatient (CLI) | payer MEDICARE, SELFPAY ==
[2023-11-09 13:07] LABS: ALB/GLOB Ratio 0.9 RATIO (0.9-2.4); AST(SGOT) 26 U/L (15-37); Alanine Aminotransfer ALT/SGPT 21 U/L (13-56); Albumin, Serum 3.6 g/dL (3.2-5.0); Alkaline Phosphatase 87 U/L (45-117); Anion Gap 7 (5-15); BUN 19 mg/dL (7-18); BUN/Creat Ratio 24.2 RATIO (10-20); Calcium,Total 9.6 mg/dL (8.5-10.1); Chloride 106 mmol/L (98-107); Cholesterol 163 mg/dL (200); Creatinine, Serum 0.79 mg/dL (0.55-1.02); EST Glomerular Filtration Rate 75 mL/min (>60); Est Glom Filt Rate - Afr Amer 91 mL/min (>60); Glucose 83 mg/dL (74-106); High Density Lipoprotein 77 mg/dL; Potassium 4.1 mmol/L (3.5-5.1); Protein, Total 7.6 g/dL (6.4-8.2); Sodium Level 140 mmol/L (136-145); Triglycerides 74 mg/dL; Very Low Density Lipoprotein 15 mg/dL (5-40)
== END | disposition home or self-care (01) ==
LOC: MFPLAB 10:59
PROVIDERS: PCP Family Medicine; Visit Provider Family Medicine
DX: E78.00 Pure hypercholesterolemia, unspecified (principal)
CPT/HCPCS: 36415; 80053; 80061

== ENCOUNTER 2023-11-13 18:47 | Emergency (ER) | payer MEDICARE, SELFPAY ==
[2023-11-13 18:48] VITALS: BP 200/58; PULSE 55; RESP 18; TEMP 36.7; O2SAT 99; BMI 27.5
--- NOTE | 2023-11-13 21:04 | EDS_ITS ---
HPI History of Present Illness Chief Complaint: Abscess Informant: patient Onset/Context/Timing Onset: Days (3) Context: Sudden Onset Timing: Continuous Quality: Aching Location: Left shoulder area Worsened by: Movement Relieved by: Rest Narrative Narrative: Patient presents with pain and swelling to the left posterior shoulder area that has been getting worse over the last 3 days. Patient states it began rather suddenly. Patient admits to some drainage coming from the area. Patient denies any fevers or chills. Patient admits to some redness to the area. Patient states she has had an abscess in that area in the past several years ago. [facility] Medical History Osteoporosis CPAP (continuous positive airway pressure) dependence Sleep apnea De Quervain's disease (tenosynovitis) Stroke History of cancer of vulva Home Medications ?Medication ?Instructions ?Recorded ?Last Taken ?Type citalopram 20 mg tablet 20 mg PO DAILY DEPRESSION 04/02/17 05/03/17 History lisinopril 5 mg tablet 5 mg PO DAILY BLOOD PRESSURE 04/02/17 05/03/17 History gjwssrvi-zxkg-cows 8 mg-folic 400 1 ea PO DAILY SUPPLEMENT 04/02/17 04/01/17 History mcg-K 50 mcg-lutein 300 mcg tablet (Centrum Silver Women) simvastatin 40 mg tablet 40 mg PO DAILY CHOLESTEROL 04/02/17 05/03/17 History amlodipine 2.5 mg tablet 2.5 mg PO DAILY 06/10/21 Unknown History gabapentin 300 mg capsule 300 mg PO TID 06/10/21 Unknown History naproxen 500 mg tablet 500 mg PO 06/10/21 Unknown History mycophenolate mofetil 250 mg 500 mg PO BID 09/12/22 Unknown History capsule cephalexin 500 mg capsule 500 mg PO Q6 #40 CAPSULES 11/13/23 Unknown Rx Allergy/AdvReac Type Severity Reaction Status Date / Time acetaminophen (From Percocet) Allergy Severe Anaphylaxis Verified 11/13/23 18:50 oxycodone (From Percocet) Allergy Severe Anaphylaxis Verified 11/13/23 18:50 ibuprofen AdvReac Mild Nausea Verified 11/13/23 18:50 Family History Mother Heart disease Hypertension CVA (cerebral vascular accident) Diabetes Arthritis Father Cancer Alcoholism Sister Cancer Surgical History History of appendectomy History of total hip replacement Hx of hernia repair Hx of hysterectomy History of ankle surgery Social History household members: none current occupational status: employed current occupation: [employer] Smoking Status: Former smoker Tobacco: How many years used: 40 alcohol intake: never substance use type: does not use what type of physical activity do you participate in: walking and other frequency: 3-4 times per week seatbelt use: always do you feel safe at home: Yes additional social history: single ROS ROS ED Constitutional Constitutional ED: Denies chills or fever(s) Eyes Eyes: Denies blurry vision or change in vision ENT ENT ED: Denies rhinorrhea or sore throat Cardiovascular Cardiovascular: Denies chest pain or palpitations Respiratory/Chest Respiratory/Chest: Denies cough or dyspnea Gastrointestinal Gastrointestinal: Denies nausea or vomiting Genitourinary Genitourinary ED: Denies dysuria or hematuria Musculoskeletal Musculoskeletal: Reports back pain; Denies neck pain Integumentary Reports abscess; Denies rash Neurologic Neurologic: Denies headache(s) or weakness Allergic/Immunologic Allergic/Immunologic ED: Denies mouth swelling or urticaria EXAM Physical Exam Const Vital Signs: 11/13/23 18:48 Temperature 98.0 F Temperature Source Temporal Pulse Rate 55 L Respiratory Rate 18 Blood Pressure 200/58 H Blood Pressure Mean 105 Pulse Ox 99 Oxygen Delivery Method Room Air Positive well nourished and well developed General Appearance ED: well developed and NAD HEENT Reports moist mucous membranes Neck supple and no JVD Extremity Extremity Narrative: There is mild tenderness over the supraspinatus area of the left scapula. Range of motion was slightly limited in all motions secondary to pain. There is no deformity noted. There is no edema or ecchymosis noted. Neuro oriented x3, CN's II-XII intact bilaterally and no sensory deficits noted Sensorium / Orientation: alert Motor Exam: strength 5/5 throughout Skin Skin Narrative: There is edema, erythema, and fluctuance over the posterior aspect of the left shoulder area over the supraspinatus area of the scapula. There is some mild purulent drainage. There is no induration noted. MDM MDM MDM Narrative Medical decision making narrative: Patient was advised of the need for incision and drainage. Patient was given after ask questions. Patient no further questions. The area was cleaned with chlorhexidine prep. The area was anesthetized with 1% plain lidocaine locally. A small cruciate incision was made using an 15 blade scalpel. A large amount of purulent drainage was expressed. Hemostats were used to break up loculations. The wound was irrigated with copious normal saline. The wound was left open. Bacitracin dressing was applied. Patient tolerated the procedure well. Patient was instructed to use warm compresses. Patient was given a dose of Keflex here. Patient given prescription for Keflex. Patient was instructed to follow-up with her primary care physician in 5 to 7 days. Patient understood and was agreeable with the plan. All questions were answered. Procedures Other Procedures Procedure(s): The area was cleaned with chlorhexidine prep. The area was anesthetized with 1% plain lidocaine locally. A small cruciate incision was made using an 15 blade scalpel. A large amount of purulent drainage was expressed. Hemostats were used to break up loculations. The wound was irrigated with copious amounts of normal saline. The wound was left open. Bacitracin dressing was applied. Patient tolerated the procedure well. Discharge Plan Triage Chief Complaint: Abscess ED Provider: Олег Blanc Dx/Rx/DC Orders Clinical Impression: Abscess of skin of left shoulder, Hypertension Instructions: ED Abscess Incision And Drainage Prescriptions: New cephalexin 500 mg capsule 500 mg PO Q6 Qty: 40 0RF No Action naproxen 500 mg tablet 500 mg PO gabapentin 300 mg capsule 300 mg PO TID amlodipine 2.5 mg tablet 2.5 mg PO DAILY mycophenolate mofetil 250 mg capsule 500 mg PO BID simvastatin 40 MG tablet 40 mg PO DAILY Patient Comments: citalopram 20 MG tablet 20 mg PO DAILY Patient Comments: lisinopril 5 MG tablet 5 mg PO DAILY Patient Comments: Centrum Silver Women 1 EACH tablet 1 ea PO DAILY Primary Care Provider: Agus Malik Referrals: Agus Malik MD [Primary Care Provider] - 5-7 Days Print Language: Bermudian Disposition Disposition: Home, Self Care
[2023-11-13] MEDS: Lidocaine 1% (20 ml mdv) 20 ML Vial INFILT (21:46)
[2023-11-13] MEDS: Cephalexin 500 MG Capsule PO (21:46)
[2023-11-13 22:47] VITALS: BP 162/75; PULSE 56; RESP 18; TEMP 36.7; O2SAT 99
== END 2023-11-13 23:57 | disposition home or self-care (01) ==
PROVIDERS: Emergency Provider Emergency Medicine; PCP Family Medicine; Visit Provider Emergency Medicine
DX: L02.414 Cutaneous abscess of left upper limb (principal); I10 Essential (primary) hypertension; Z87.891 Personal history of nicotine dependence; G47.30 Sleep apnea, unspecified; Z99.89 Dependence on other enabling machines and devices; Z86.73 Personal history of transient ischemic attack (TIA), and cerebral infarction without residual deficits; Z85.89 Personal history of malignant neoplasm of other organs and systems; Z79.899 Other long term (current) drug therapy; Z90.49 Acquired absence of other specified parts of digestive tract; Z96.649 Presence of unspecified artificial hip joint; Z90.710 Acquired absence of both cervix and uterus
CPT/HCPCS: 10060; 99282

== ENCOUNTER 2023-11-29 12:17 | Inpatient (IN) | payer MEDICARE, SELFPAY ==
[2023-11-29] VITALS (8 sets, daily range): BP systolic 73–132; BP diastolic 45–69; PULSE 67–84; RESP 13–18; TEMP 36.1–36.6; O2SAT 92–100; BMI 28.0
--- NOTE | 2023-11-29 12:41 | EKG12_ITS ---
Test Reason : Blood Pressure : / mmHG Vent. Rate : 098 BPM Atrial Rate : 098 BPM P-R Int : 148 ms QRS Dur : 090 ms QT Int : 338 ms P-R-T Axes : 058 -45 090 degrees QTc Int : 431 ms Normal sinus rhythm Left anterior fascicular block Inferior infarct , age undetermined Anterior infarct , age undetermined ST & T wave abnormality, consider lateral ischemia Abnormal ECG When compared with ECG of 29-NOV-2023 13:09, MANUAL COMPARISON REQUIRED, DATA IS UNCONFIRMED Confirmed by ALTAGRACIA RABAGO, DAVID ([id number]), primer expeditor and drier AMANDA CASTILLO ([id number]) on 12/07/2023 6:53:22 AM Referred By: Jose De Jesus Dash Confirmed By:DAVID FRIAS MD
--- NOTE | 2023-11-29 12:47 | EDS_ITS ---
HPI History of Present Illness Chief Complaint: Weakness Narrative Narrative: Patient is a 78-year-old female past medical history of CVA, osteoporosis, GEOVANNA who presented to the emergency department with a chief complaint of altered mental status and weakness. According to the patient's family ember at bedside for the past few days she has not been acting her normal self and has had increasing weakness. She states that she is more shaky than normal and they noted that her blood pressure was low at home prompting them to come here for further evaluation management. Patient overall states that she just feels very weak and not her normal self denies any infectious type symptoms. [facility] Medical History Osteoporosis CPAP (continuous positive airway pressure) dependence Sleep apnea De Quervain's disease (tenosynovitis) Stroke History of cancer of vulva Home Medications ?Medication ?Instructions ?Recorded ?Last Taken ?Type citalopram 20 mg tablet 20 mg PO DAILY DEPRESSION 04/02/17 05/03/17 History lisinopril 5 mg tablet 5 mg PO DAILY BLOOD PRESSURE 04/02/17 05/03/17 History [id number] 8 mg-folic 400 1 ea PO DAILY SUPPLEMENT 04/02/17 04/01/17 History mcg-K 50 mcg-lutein 300 mcg tablet (Centrum Silver Women) simvastatin 40 mg tablet 40 mg PO DAILY CHOLESTEROL 04/02/17 05/03/17 History amlodipine 2.5 mg tablet 2.5 mg PO DAILY 06/10/21 Unknown History gabapentin 300 mg capsule 300 mg PO TID 06/10/21 Unknown History naproxen 500 mg tablet 500 mg PO 06/10/21 Unknown History mycophenolate mofetil 250 mg 500 mg PO BID 09/12/22 Unknown History capsule cephalexin 500 mg capsule 500 mg PO Q6 #40 CAPSULES 11/13/23 Unknown Rx Allergy/AdvReac Type Severity Reaction Status Date / Time acetaminophen (From Percocet) Allergy Severe Anaphylaxis Verified 11/29/23 12:18 oxycodone (From Percocet) Allergy Severe Anaphylaxis Verified 11/29/23 12:18 ibuprofen AdvReac Mild Nausea Verified 11/29/23 12:18 Family History Mother Heart disease Hypertension CVA (cerebral vascular accident) Diabetes Arthritis Father Cancer Alcoholism Sister Cancer Surgical History History of appendectomy History of total hip replacement Hx of hernia repair Hx of hysterectomy History of ankle surgery Social History household members: none current occupational status: employed current occupation: [employer] Smoking Status: Former smoker Tobacco: How many years used: 40 alcohol intake: never substance use type: does not use what type of physical activity do you participate in: walking and other frequency: 3-4 times per week seatbelt use: always do you feel safe at home: Yes additional social history: single ROS ROS ED ROS Narrative Constitutional: Denies any fevers, chills, headaches, lightheadedness Eyes: Denies change in vision double vision blurry vision Cardiovascular: Denies chest pain or palpitations Respiratory: Denies coughing wheezing shortness of breath Abdomen: Denies abdominal pain nausea vomit diarrhea : Denies any painful urination, hematuria, polyuria Neurological: Complains of generalized weakness as noted above denies any numbness, tingling Musculoskeletal: Denies back pain Skin: Denies rashes or lesions EXAM Physical Exam Narrative Exam Narrative: General: Patient lying in bed rest comfortably did not appear to be in acute distress Head: Atraumatic, normocephalic Eyes: PERRL bilateral, EOMI bilateral, no conjunctival injection noted Neck: Soft, supple, trachea midline Cardiovascular: Regular rate and rhythm no murmurs gallops rubs noted Respiratory: Clear to auscultation bilaterally no rales rhonchi or wheezes noted Abdomen: Soft, nondistended, nontender to palpation, bowel sounds present x 4 Extremities: +4/5 strength noted in the bilateral upper and lower extremities, no pedal edema neuroexam Neurological: Patient was following commands knew that she was at [facility] year is 2023. Patient completed finger-nose test bilaterally without difficulty, NIH of 0 GCS 15 Skin: Warm, dry, intact Const Vital Signs: 11/29/23 12:18 Temperature 97.0 F L Temperature Source Temporal Pulse Rate 74 Respiratory Rate 16 Blood Pressure 73/45 L Blood Pressure Mean 54 Pulse Ox 92 Oxygen Delivery Method Room Air MDM MDM MDM Narrative Medical decision making narrative: Patient is a 78-year-old female who presented to the emergency department the chief complaint of low blood pressure and generalized weakness. Patient will have a workup performed here on the differential diagnose includes Melamin to ACS, pneumonia, UTI, dehydration, electrolyte abnormality. Once workup is obtained reviewed she will be reevaluated. Patient will be given 30 cc/kg bolus of IV fluids. Discharge Plan Triage Chief Complaint: Weakness ED Provider: Jose De Jesus Dash Dx/Rx/DC Orders Prescriptions: No Action naproxen 500 mg tablet 500 mg PO gabapentin 300 mg capsule 300 mg PO TID amlodipine 2.5 mg tablet 2.5 mg PO DAILY mycophenolate mofetil 250 mg capsule 500 mg PO BID simvastatin 40 MG tablet 40 mg PO DAILY Patient Comments: citalopram 20 MG tablet 20 mg PO DAILY Patient Comments: lisinopril 5 MG tablet 5 mg PO DAILY Patient Comments: Centrum Silver Women 1 EACH tablet 1 ea PO DAILY cephalexin 500 mg capsule 500 mg PO Q6 Qty: 40 0RF Primary Care Provider: Agus Malik Referrals: Agus Malik MD [Primary Care Provider] - Print Language: Mohawk
--- NOTE | 2023-11-29 12:48 | CT_ITS ---
INDICATION: ams EXAMINATION: CT BRAIN - CT Head or Brain W/O Contrast Injection TECHNIQUE: Multiple axial images were obtained of the head without intravenous contrast. The protocol utilizes one or more of the following dose reduction techniques: automated exposure control, adjustment of mA and/or kV according to patient size,and/or use of iterative reconstruction technique. IV Contrast dosage and agent: None. RADIATION DOSAGE (If Supplied By Facility): CTDIvol = ( 44.99 ) mGy, DLP = ( 728.62 ) mGycm COMPARISON: January 17, 2022 FINDINGS: BRAIN PARENCHYMA: No intra- or extra-axial hemorrhage. There are patchy foci of low attenuation within the white matter of the cerebral hemispheres, a nonspecific finding most commonly reflecting small vessel ischemia. There is a stable low-attenuation focus within the left basal ganglia consistent with an old infarct. No evidence of acute infarct. No intracranial mass or mass effect. There is preservation of the cade/white matter interface. Posterior fossa structures are unremarkable. CSF SPACES: Appropriate for age. No hydrocephalus. Basal cisterns are patent. CALVARIUM, SKULL BASE, PARANASAL SINUSES AND MASTOID AIR CELLS: Clear. No discrete lytic or blastic abnormalities. ORBITS: Both globes, extraocular muscles, optic nerves and retrobulbar fat appear unremarkable. ASPECTS Score for Acute Strokes: 10 CT/Brain/Head without Contrast IMPRESSION: Small vessel ischemia. Electronically Signed: Saray Marlow MD at 13:53 EDT ,
[2023-11-29 13:11] LABS: Mucous, Urine 0 SEEN /hpf (<or=2+); Red Blood Cells-Urine 0 SEEN /hpf (0-5); Squamous Epithelial Cells - UA 0 SEEN /hpf (5-10)
[2023-11-29 13:15] LABS: Absolute Lymphocyte Count 1.63 X10^3/uL (0.83-4.51); Absolute Neutrophil Count 5.7 X10^3/uL (2.0-7.7); Basophil# 0.02 X10^3/uL; Basophil% 0.2 % (0-1); Eosinophil# 0.39 X10^3/uL; Eosinophils% 4.6 % (0-5); Hemoglobin 9.7 g/dL (12.0-15.0); Lymphocyte # 1.63 X10^3/ul (0.83-4.51); Lymphocyte % 19.1 % (19-41); Mean Corp Hgb Conc 32.3 g/dL (32-36); Mean Corpuscular Hgb 31.4 pg (27.0-32.0); Mean Corpuscular Volume 97.1 fL (81-99); Mean Platelet Vol. 8.5 fl (6.2-12.0); Monocyte# 0.78 X10^3/uL; Monocyte% 9.1 % (0-10); NRBC Flagged by Analyzer 0 % (0-5); Neutrophil # 5.68 X10^3/uL (2.7-7.7); Neutrophil % 66.6 % (47-70); Platelet Count 285 K/mm3 (150-450); RBC Distribution Width CV 13.9 % (11.6-14.6); RBC Distribution Width SD 50.2 fl (35.1-43.9); Red Blood Count 3.09 M/mm3 (4.2-5.4); White Blood Count 8.5 K/mm3 (4.4-11.0)
[2023-11-29 13:22] LABS: Color, Urine Yellow (Yellow); Glucose, Dipstick Normal (Normal); Ketone-Dipstick Negative (Negative); Leukocyte Esterase-Dipstick 25 /ul (Negative); Nitrite-Dipstick Negative (Negative); Occult Blood-Urine Negative /ul (Negative); Protein-Dipstick 15 mg/dl (Negative); Specific Gravity, Urine 1.025 (1.002-1.030); Urine Clarity Clear (Clear); Urine Urobilinogen Normal (Normal)
--- NOTE | 2023-11-29 13:32 | RAD_ITS ---
INDICATION: weakness EXAMINATION/TECHNIQUE: X-RAY - XR Chest 2 Views COMPARISON: June 08, 2022 FINDINGS: LINES/DEVICES: None. LUNGS: No consolidation, edema or effusion. No pneumothorax. MEDIASTINUM AND CARDIOVASCULAR STRUCTURES: Cardiac silhouette not enlarged. Central airways and mediastinal contour are unremarkable. BONES AND SOFT TISSUES: Unremarkable. RAD/Chest PA and Lateral IMPRESSION: No radiographic evidence of acute cardiopulmonary disease. Electronically Signed: Saray Marlow MD at 13:54 EDT ,
[2023-11-29 13:35] LABS: Urine Bilirubin Dipstick 6 mg/dL (Negative)
[2023-11-29 13:38] LABS: White Blood Cells 5-10 SEEN /hpf (0-5)
[2023-11-29 13:39] LABS: Amorphous Sediment 2+; Bacteria 2+ /hpf (None Seen)
[2023-11-29 13:41] LABS: ALB/GLOB Ratio 0.7 RATIO (0.9-2.4); AST(SGOT) 24 U/L (15-37); Alanine Aminotransfer ALT/SGPT 21 U/L (13-56); Albumin, Serum 2.9 g/dL (3.2-5.0); Alkaline Phosphatase 67 U/L (45-117); Anion Gap 8 (5-15); BUN 77 mg/dL (7-18); BUN/Creat Ratio 12.8 RATIO (10-20); Calcium,Total 9.2 mg/dL (8.5-10.1); Chloride 102 mmol/L (98-107); Creatinine, Serum 6.02 mg/dL (0.55-1.02); EST Glomerular Filtration Rate 7 mL/min (>60); Est Glom Filt Rate - Afr Amer 9 mL/min (>60); Globulin 3.9 g/dL (2.2-4.2); Glucose 79 mg/dL (74-106); Potassium 5.3 mmol/L (3.5-5.1); Protein, Total 6.8 g/dL (6.4-8.2); Sodium Level 133 mmol/L (136-145); Troponin-I HS 241 pg/mL (3.0-54.0)
[2023-11-29 13:43] LABS: Lactic Acid 1.5 mmol/L (0.4-1.9)
[2023-11-29] MEDS: 0.9% Normal Saline (1000mL) 1,000 ML 999 ML IV ×2 (13:43→16:14)
[2023-11-29 13:50] LABS: Blood Gas Specimen Type VEN; O2 Delivery Device Not entered; SITE Not entered; VBG BASE EXCESS -8 mmol/L (-1.0-3.5); VBG Bicarbonate 19 mmol/L (22-26); VBG PO2 48 mmHg (25-40); VBG SO2 77 % (50-70); VBG TCO2 20 mmol/L (23-33); VBG pCO2 42.4 mmHg (41-51); VBG pH 7.26 (7.32-7.42)
[2023-11-29 14:08] LABS: International Normalized Ratio 1.1; Partial Thromboplast Time 26.1 Seconds (24.1-36.2); Prothrombin Time (Protime)PT. 14.1 SECONDS (11.7-14.9)
[2023-11-29] MEDS: Ceftriaxone 1 GM/50 ML BAG IV (14:38)
--- NOTE | 2023-11-29 14:39 | HP.PCM.HOS_ITS ---
HPI - General General Date of Admission: 11/29/23 Date of Service: 11/29/23 Chief Complaint: Worsening weakness with hypotension HPI Narrative ALEXUS TATE, is a 78 F who presented to [facility] ED on 11/29/2023 with several concerns including worsening weakness, mild confusion and hypotension. Patient lives at home with her daughter and daughter was present at bedside in the ED. 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 She last did this job about 1 week ago. Since then she has developed worsening fatigue and weakness along with decreased appetite, slight taste alteration and mild mental fogginess. Daughter noted that patient was more fatigued than her normal and was shaky appearing earlier today. They checked her blood pressure at home and it was low, so they brought her in for further evaluation. On arrival her blood pressure was noted to be in the 70s over 40s. However her heart rate was normal in the 70s and she was afebrile and breathing comfortably on room air. She was given a fluid bolus with good improvement in her blood pressure to the 110s systolic. She appeared to have some improved energy after the bolus as well. She was found to have a creatinine of 6.02, up from her baseline of 0.7. She notably had a creatinine of 0.7 on last check on 11/08. She did note that she has had minimal urine output over the past several days. She denied any dysuria, urinary frequency or urgency. She denied any abdominal pain or discomfort. Given her severe BALWINDER and acute debility, hospitalist was contacted for admission. I saw the patient at bedside in the ED, daughter was present. Patient was fatigued appearing and somewhat dry appearing on exam but was otherwise sitting up comfortably in bed, making appropriate eye contact and answering questions appropriately for me. She currently denied any acute pain or discomfort. She denied any fevers or chills at home. Notably, patient was seen in the ED here on 11/12 for an abscess with drainage in the left posterior shoulder area. I&D was done at that time and a large amount of purulent drainage was expressed. Wound was irrigated with copious amounts of normal saline and wound was left open. Patient denies any pain or discomfort in that area since shortly after that ED visit. On my exam, the area appears very well-healed with no erythema, swelling or tenderness to palpation. No other acute concerns at this time. Will be admitted for further management. [facility] Medical History Osteoporosis CPAP (continuous positive airway pressure) dependence Sleep apnea De Quervain's disease (tenosynovitis) Stroke History of cancer of vulva Home Medications ?Medication ?Instructions ?Recorded ?Last Taken ?Type citalopram 20 mg tablet 20 mg PO DAILY DEPRESSION 04/02/17 11/29/23 History [id number] 8 mg-folic 400 1 ea PO DAILY SUPPLEMENT 04/02/17 11/29/23 History mcg-K 50 mcg-lutein 300 mcg tablet (Centrum Silver Women) simvastatin 40 mg tablet 40 mg PO DAILY CHOLESTEROL 04/02/17 11/29/23 History amlodipine 2.5 mg tablet 2.5 mg PO DAILY 06/10/21 11/29/23 History gabapentin 300 mg capsule 300 mg PO TID 06/10/21 11/29/23 History acetaminophen 500 mg tablet 1,000 mg PO BID PRN pain 11/29/23 11/29/23 History lisinopril 20 mg tablet 20 mg PO DAILY 11/29/23 11/29/23 History sulfamethoxazole 800 2 tab PO BID 11/29/23 11/29/23 History mg-trimethoprim 160 mg tablet Allergy/AdvReac Type Severity Reaction Status Date / Time acetaminophen (From Percocet) Allergy Severe Anaphylaxis Verified 11/29/23 12:18 oxycodone (From Percocet) Allergy Severe Anaphylaxis Verified 11/29/23 12:18 ibuprofen AdvReac Mild Nausea Verified 11/29/23 12:18 Family History Mother Heart disease Hypertension CVA (cerebral vascular accident) Diabetes Arthritis Father Cancer Alcoholism Sister Cancer Surgical History History of appendectomy History of total hip replacement Hx of hernia repair Hx of hysterectomy History of ankle surgery Social History household members: none current occupational status: employed current occupation: [employer] Smoking Status: Former smoker Tobacco: How many years used: 40 alcohol intake: never substance use type: does not use what type of physical activity do you participate in: walking and other frequency: 3-4 times per week seatbelt use: always do you feel safe at home: Yes additional social history: single ROS Constitutional Constitutional: Reports fatigue and weakness; Denies chills or fever(s) Eyes Eyes: Denies change in vision Cardiovascular Cardiovascular: Reports lightheadedness; Denies chest pain, edema, orthopnea or palpitations Respiratory/Chest Respiratory/Chest: Denies cough, shortness of breath at rest, shortness of breath with exertion or wheezing Gastrointestinal Gastrointestinal: Denies abdominal pain Genitourinary Genitourinary: Denies dysuria Musculoskeletal Musculoskeletal: Denies arthralgias or myalgias Neurologic Neurologic: Reports confusion and dizziness; Denies focal weakness or headache(s) Vital Signs Vital Signs Vital Signs: 11/29/23 12:17 11/29/23 12:18 11/29/23 12:41 Temperature 97.0 F L Temperature Source Temporal Pulse Rate 74 Respiratory Rate 16 Respiratory Effort Normal Non-Labored Respiratory Pattern Normal Blood Pressure 73/45 L Blood Pressure Mean 54 Pulse Ox 92 Oxygen Delivery Method Room Air Room Air 11/29/23 13:17 11/29/23 13:46 11/29/23 14:00 Temperature Temperature Source Pulse Rate 71 67 Respiratory Rate 16 13 Respiratory Effort Respiratory Pattern Blood Pressure 79/51 L 109/51 L 114/50 L Blood Pressure Mean 60 70 71 Pulse Ox 95 94 Oxygen Delivery Method Room Air Physical Exam Const alert, oriented x3 and no apparent distress Constitutional Narrative: Elderly female, overweight, mildly pale and fatigued appearing, otherwise sitting up comfortably in bed and answering questions appropriately, in no acute distress. General Appearance: cooperative and comfortable HEENT normocephalic, head/scalp atraumatic, hearing grossly normal bilaterally and nasal mucous membranes and turbinates normal HEENT Narrative: Dry mucous membranes. Eyes PERRL, EOMs intact bilaterally and conjunctivae normal Neck full ROM Chest inspection of chest normal Resp normal respiratory effort, normal air movement, no use of accessory muscles and clear to auscultation bilaterally Cardio regular rate, regular rhythm, no murmurs and peripheral pulses 2+ throughout GI normal to inspection, nondistended, normoactive bowel sounds, soft to palpation, non-tender and non-distended Back/Spine normal ROM Extremity normal to inspection and full ROM Extremity Narrative: +1 lower extremity edema noted. Skin no rashes or lesions noted Neuro moves all extremities and no focal motor deficits Speech: speech normal Psych mental status grossly normal Results Lab / Micro Data 11/29/23 13:01 11/29/23 13:01 Labs: Laboratory Results - last 24 hr 11/29/23 13:01: WBC 8.5, RBC 3.09 L, Hgb 9.7 L, Hct 30.0 L, MCV 97.1, MCH 31.4, MCHC 32.3, RDW Std Deviation 50.2 H, RDW Coeff of Robbi 13.9, Plt Count 285, MPV 8.5, Immature Gran % (Auto) 0.400, Neut % (Auto) 66.6, Lymph % (Auto) 19.1, Warren % (Auto) 9.1, Eos % (Auto) 4.6, Baso % (Auto) 0.2, Absolute Neuts (auto) 5.7, Absolute Lymphs (auto) 1.63, Nucleated RBC % 0, PT 14.1, INR 1.1, APTT 26.1, S odium 133 L, Potassium 5.3 H, Chloride 102, Carbon Dioxide 23.0, Anion Gap 8, B UN 77 H, Creatinine 6.02 H, Est GFR (MDRD) Af Amer 9 L, Est GFR (MDRD) Non-Af 7 L, BUN/Creatinine Ratio 12.8, Glucose 79, Lactic Acid 1.5, Calcium 9.2, Total Bilirubin 0.20, AST 24, ALT 21, Alkaline Phosphatase 67, Troponin I High Sens 241 H*, Total Protein 6.8, Albumin 2.9 L, Globulin 3.9, Albumin/Globulin Ratio 0.7 L, Urine Color Yellow, Urine Clarity Clear, Urine pH 5.0, Ur Specific [place] 1.025, Urine Protein 15 H, Urine Glucose (UA) Normal, Urine Ketones Negative, Urine Occult Blood Negative, Urine Nitrite Negative, Urine Bilirubin 6 H, Urine Urobilinogen Normal, Ur Leukocyte Esterase 25 H, Urine RBC 0 SEEN, Urine WBC 5-10 SEEN, Ur Squamous Epith Cells 0 SEEN, Amorphous Sediment 2+, Urine Bacteria 2+, Urine Mucus 0 SEEN Micro: Microbiology 11/29/23 13:01 Mucosa - Nose SARS-CoV-2, Influenza & RSV (PCR) - Final ABG Data ABG results: ABG 11/29/23 13:47 Specimen Type REEMA Sample Site Not entered VBG pH 7.26 L VBG pO2 48 H VBG HCO3 19 L VBG Total CO2 20 L VBG O2 Sat (Calc) 77 H VBG Base Excess -8 L POC Mix VBG pCO2 Pt Tmp 42.4 O2 Delivery Device Not entered Imaging Radiology Impression Brain CT 11/29/23 12:48 IMPRESSION: Small vessel ischemia. Electronically Signed: Saray Marlow MD at 13:53 EDT , Chest X-Ray 11/29/23 13:32 IMPRESSION: No radiographic evidence of acute cardiopulmonary disease. Electronically Signed: Saray Marlow MD at 13:54 EDT , Assessment & Plan Assessment/Plan (1) BALWINDER (acute kidney injury): (2) Debility: PLAN: Plan Patient is a 78-year-old female who presented [facility] ED on 11/29/2023 with worsening weakness and low blood pressure. 1. Severe BALWINDER ? Admit under inpatient status to PCU. Creatinine 6.02 on admit, baseline 0.7. BUN 77. Suspect primarily prerenal etiology but now with concern for some degree of ATN given degree of creatinine elevation and reported poor urination recently. FENa 1.0%, indeterminate between prerenal versus intrinsic etiology. Renal/bladder ultrasound ordered. Given 30 cc per kg fluid bolus on admission given concern for sepsis as noted below. Follow-up daily BMP and monitor urine output. No need for renal replacement therapy at this time. Can consider nephrology consult as needed. 2. Concern for sepsis of unclear etiology, concern for acute cystitis ? Presented with hypotension, severe BALWINDER as noted above and subjective fevers noted at home. However, hypotension was quickly fluid responsive and since arrival to the ED patient has been afebrile and otherwise hemodynamically stable. UA showed 25 leukocyte esterase, negative nitrites, 2+ bacteria. Patient has had decreased urine output but denies any dysuria or other UTI symptoms. Chest x-ray unremarkable. Abdomen benign. Notably had left shoulder abscess drained on 11/12, see HPI for further details. Site appears well-healed and not infected. Have low suspicion for sepsis or significant infection at this time. Will treat for possible UTI empirically with ceftriaxone for now. Urine culture and blood cultures pending. 3. Acute on chronic debility ? PT/OT/case management consulted. 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 However, she does live with her daughter and has some degree of debility at baseline. 4. Normocytic anemia ? Hemoglobin 9.7 on admit. Last hemoglobin value in 05/2022 was 12.6 but patient did have hemoglobin values in the 9-10 range prior to that. Iron studies with ferritin, B12 and folate ordered. Follow-up a.m. CBC. 5. Mild hyponatremia ?Sodium 133 on admit. Presumed secondary to severe BALWINDER as noted above. Given IV fluid resuscitation on admit. Follow-up a.m. BMP. 6. Mild hyperkalemia ?Potassium 5.3 on admit. Presumed secondary to BALWINDER. Given IV fluid resuscitation on admit. Follow-up a.m. BMP. 7. Elevated troponins ? Troponin trend 241 to 215. No EKG changes noted. Patient denied chest pain on admit. Suspect demand ischemia from hypotension noted above. No need for further cardiac workup. Chronic medical conditions: ? Hypertension: Will hold home amlodipine and lisinopril for now. ? Depression/anxiety: Continue home citalopram. ? Hyperlipidemia: Continue home statin. ? Neuropathy: Continue home gabapentin. DVT prophylaxis: Heparin subcu CODE STATUS: Full code, verified Expected disposition: TBD Total clinical time spent by myself addressing the patient's medical issues, reviewing all the data, and collaborating with patient's care team: 75 minutes. Charges/Coding Visit Charges Inpatient E&M: 97778 Init Hosp L3
--- NOTE | 2023-11-29 15:06 | US_ITS ---
INDICATION: severe BALWINDER, eval for postobstructive EXAMINATION: Ultrasound US Kidney(s) complete (eg, kidneys and bladder) TECHNIQUE: Ly scale and color doppler images were obtained of the kidneys. COMPARISON: None. FINDINGS: RIGHT KIDNEY: Measures 11 cm in length.. There is no hydronephrosis. No shadowing calculus, focal lesion or perinephric collection is demonstrated. There is a simple 1.8 cm cyst. LEFT KIDNEY: Measures 10.3 cm in length.. There is no hydronephrosis. No shadowing calculus, focal lesion or perinephric collection is demonstrated. URINARY BLADDER: No acute abnormality. US/Kidney and Bladder IMPRESSION: Negative renal ultrasound. Electronically Signed: Harpreet Agrawal MD at 17:13 EDT ,
[2023-11-29 15:26] LABS: Magnesium 2.5 mg/dL (1.6-2.6); Phosphorus 6.2 mg/dL (2.5-4.9); Urine Sodium 40 mmol/L (Not Establ.)
[2023-11-29 15:58] LABS: Troponin-I HS 215 pg/mL (3.0-54.0)
[2023-11-29] MEDS: Gabapentin 300 MG Capsule PO (21:14)
[2023-11-29] MEDS: Heparin Injection (Vial) 5,000 UNIT/ML VIAL 5000 UNIT SC (21:14)
[2023-11-29 22:46] LABS: Vitamin B12 386 pg/mL (211-911)
[2023-11-29 23:16] LABS: Ferritin 433 ng/mL (8-252); Iron 40 ug/dL (50-170); Iron Binding Capacity,Total 227 ug/dL (250-450); PERCENT IRON SATURATION 17.6 % (15.0-55.0)
[2023-11-30 03:57] VITALS: BP 133/58; PULSE 91; RESP 18; TEMP 36.4; O2SAT 92
[2023-11-30 03:58] VITALS: BP 133/58; PULSE 91; RESP 18; TEMP 36.4; O2SAT 92
[2023-11-30] MEDS: Heparin Injection (Vial) 5,000 UNIT/ML VIAL 5000 UNIT SC ×3 (05:33→20:29)
[2023-11-30] MEDS: Gabapentin 300 MG Capsule PO ×3 (05:33→20:30)
[2023-11-30 07:30] LABS: Anion Gap 6 (5-15); BUN 61 mg/dL (7-18); BUN/Creat Ratio 16.3 RATIO (10-20); Calcium,Total 8.6 mg/dL (8.5-10.1); Chloride 112 mmol/L (98-107); Creatinine, Serum 3.74 mg/dL (0.55-1.02); EST Glomerular Filtration Rate 12 mL/min (>60); Est Glom Filt Rate - Afr Amer 15 mL/min (>60); Estimated Creatinine Clearance 10.26 ml/min; Glucose 78 mg/dL (74-106); Potassium 6.1 mmol/L (3.5-5.1); Sodium Level 135 mmol/L (136-145)
[2023-11-30 07:52] LABS: Hemoglobin 8.9 g/dL (12.0-15.0); Mean Corp Hgb Conc 31.8 g/dL (32-36); Mean Corpuscular Hgb 31.1 pg (27.0-32.0); Mean Corpuscular Volume 97.9 fL (81-99); Platelet Count 287 K/mm3 (150-450); RBC Distribution Width CV 13.5 % (11.6-14.6); RBC Distribution Width SD 48.4 fl (35.1-43.9); Red Blood Count 2.86 M/mm3 (4.2-5.4); White Blood Count 6.5 K/mm3 (4.4-11.0)
[2023-11-30] MEDS: Dextrose 10%-Water 250 ML 999 ML IV (08:51)
[2023-11-30] MEDS: Atorvastatin Calcium 20 MG Tablet PO (08:58)
[2023-11-30] MEDS: Citalopram 20 MG Tablet PO (08:58)
[2023-11-30 09:00] VITALS: BP 133/51; PULSE 91; RESP 18; TEMP 36.8; O2SAT 93
[2023-11-30] MEDS: FLU VACCINE **HIGH DOSE** TV 24-25 180 MCG/0.5 ML SYRINGE IM (09:23)
[2023-11-30] MEDS: Albuterol *CONC* 2.5mg/0.5mL VIAL.NEB. 10 MG INHALATION (09:35)
--- NOTE | 2023-11-30 09:40 | PN_ITS ---
Subjective Subjective Patient seen and examined. She has no active complaints today. She was admitted with a complaint of weakness and found to have BALWINDER with hyperkalemia. Cr has trended down from 6.02 on admission to 3.74. Potassium is however still elevated at 6.1. Hemoglobin is also down to 8.9, from 9.7 yesterday. She has remained hemodynamically stable. Objective Data Objective Data Vital Signs: Vital Signs Temp Pulse Resp BP Pulse Ox O2 Del Method 98.3 F 91 18 133/51 H 93 Room Air 11/30/23 09:00 11/30/23 09:00 11/30/23 09:00 11/30/23 09:00 11/30/23 09:00 11/30/23 09:01 Oxygen Delivery Method Room Air Weight: 143 lb 4.807 oz Body Mass Index (BMI) 28.0 Intake & Output: Intake and Output for Last 24 Hours 11/28/23 11/29/23 11/30/23 23:59 23:59 23:59 Intake Total 2270 / 2270 470 / 470 Output Total 325 / 325 Balance 1945 / 1945 470 / 470 Lab / Micro Data 11/30/23 06:32 11/30/23 06:32 Labs: Laboratory Results - last 24 hr 11/29/23 13:01: WBC 8.5, RBC 3.09 L, Hgb 9.7 L, Hct 30.0 L, MCV 97.1, MCH 31.4, MCHC 32.3, RDW Std Deviation 50.2 H, RDW Coeff of Robbi 13.9, Plt Count 285, MPV 8.5, Immature Gran % (Auto) 0.400, Neut % (Auto) 66.6, Lymph % (Auto) 19.1, [place] % (Auto) 9.1, Eos % (Auto) 4.6, Baso % (Auto) 0.2, Absolute Neuts (auto) 5.7, Absolute Lymphs (auto) 1.63, Nucleated RBC % 0, PT 14.1, INR 1.1, APTT 26.1, S odium 133 L, Potassium 5.3 H, Chloride 102, Carbon Dioxide 23.0, Anion Gap 8, B UN 77 H, Creatinine 6.02 H, Est GFR (MDRD) Af Amer 9 L, Est GFR (MDRD) Non-Af 7 L, BUN/Creatinine Ratio 12.8, Glucose 79, Lactic Acid 1.5, Calcium 9.2, P hosphorus 6.2 H, Magnesium 2.5, Total Bilirubin 0.20, AST 24, ALT 21, Alkaline Phosphatase 67, Troponin I High Sens 241 H*, Total Protein 6.8, Albumin 2.9 L, Globulin 3.9, Albumin/Globulin Ratio 0.7 L, Urine Color Yellow, Urine Clarity Clear, Urine pH 5.0, Ur Specific [place] 1.025, Urine Protein 15 H, Urine Glucose (UA) Normal, Urine Ketones Negative, Urine Occult Blood Negative, Urine Nitrite Negative, Urine Bilirubin 6 H, Urine Urobilinogen Normal, Ur Leukocyte Esterase 25 H, Urine RBC 0 SEEN, Urine WBC 5-10 SEEN, Ur Squamous Epith Cells 0 SEEN, Amorphous Sediment 2+, Urine Bacteria 2+, Urine Mucus 0 SEEN, Ur Random Sodium 40, Urine Creatinine 186.00 11/29/23 15:07: Troponin I High Sens 215 H* 11/29/23 22:15: Iron 40 L, TIBC 227 L, Iron Saturation 17.6, Ferritin 433 H, Vitamin B12 386, Folate 30.00 11/30/23 06:32: WBC 6.5, RBC 2.86 L, Hgb 8.9 L, Hct 28.0 L, MCV 97.9, MCH 31.1, MCHC 31.8 L, RDW Std Deviation 48.4 H, RDW Coeff of Robbi 13.5, Plt Count 287, MPV 9.0, Sodium 135 L, Potassium 6.1 H*, Chloride 112 H, Carbon Dioxide 17.0 L, Anion Gap 6, BUN 61 H, Creatinine 3.74 H, Estim Creat Clear Calc 10.26, Est GFR (MDRD) Af Amer 15 L, Est GFR (MDRD) Non-Af 12 L, BUN/Creatinine Ratio 16.3, Glucose 78, Calcium 8.6 Micro: Microbiology 11/29/23 13:01 Mucosa - Nose SARS-CoV-2, Influenza & RSV (PCR) - Final ABG Data ABG results: ABG 11/29/23 13:47 Specimen Type REEMA Sample Site Not entered VBG pH 7.26 L VBG pO2 48 H VBG HCO3 19 L VBG Total CO2 20 L VBG O2 Sat (Calc) 77 H VBG Base Excess -8 L POC Mix VBG pCO2 Pt Tmp 42.4 O2 Delivery Device Not entered Radiography Diagnostic Testing: Radiology Impression Brain CT 11/29/23 12:48 IMPRESSION: Small vessel ischemia. Electronically Signed: Saray Marlow MD at 13:53 EDT , Chest X-Ray 11/29/23 13:32 IMPRESSION: No radiographic evidence of acute cardiopulmonary disease. Electronically Signed: Saray Marlow MD at 13:54 EDT , Renal Ultrasound 11/29/23 15:06 IMPRESSION: Negative renal ultrasound. Electronically Signed: Harpreet Agrawal MD at 17:13 EDT , Physical Exam Const alert, oriented x3, no apparent distress and well nourished HEENT normocephalic and head/scalp atraumatic Mouth: dry mucous membranes Eyes PERRL and EOMs intact bilaterally Neck no lymphadenopathy, supple and no JVD Lymph Lymphatic: no lymphadenopathy noted and no lymphedema noted Resp normal respiratory effort, normal air movement and clear to auscultation bilaterally Cardio regular rate, regular rhythm, S1 normal heart sound, S2 normal heart sound and no murmurs GI normal to inspection, nondistended, normoactive bowel sounds, soft to palpation, non-tender and non-distended Extremity normal capillary refill, no clubbing, cyanosis or edema and no calf tenderness General Extremity: no tenderness to palpation of joints or extremities Skin General Skin Exam: no breakdown Neuro CN's II-XII intact bilaterally, no focal motor deficits, no sensory deficits noted and deep tendon reflexes 2+ bilaterally Motor Exam: strength 5/5 throughout and general weakness Psych thought process normal and cooperative Appearance: appropriate Assessment & Plan Assessment/Plan (1) BALWINDER (acute kidney injury): (2) Debility: PLAN: Plan #BALWINDER with hyperkalemia * Cr was 6.02 on admission. Patient was hypotensive on admission,a nd concern is the BALWINDER may ahve been due to pre renal causes. * Cr is down to 3.74 today. * FeNa was 1%, indicating either a pre renal or intrinsic kidney condition. * renal USG showed no evidence of hydronephrosis on the right or left kidney, and no abnormality in the bladder. * insert Carpenter catheter * nephrology consulted * patient currently not on IVF; hydrate with IVF NS @ 125cc/hr x 2 bags. * monitor urine output. Trend Cr * BP meds on hold. Hold any and all nephrotoxic meds * of note, it seems patient had been on bactrim also, which could contribute to BALWINDER. It has now been discontinued. #Nonanion gap metabolic acidosis * Bicarb is down to 17. Anion gap is 6. This likely due to BALWINDER. Nephrology consulted. Await recs. * #Cystitis * urinalysis showed 2+ bacteria. ON IV ceftriaxone. Get urine cultures #Debility and weakness * PT/OT no board. Fall precautions #Anemia * Hb is 8.9. Hb was 9.7 yesterday on admission. * Iron profile showed iron being lw at 40, ferritin level of 433 and iron sats of 17.6. TIBC is 227. * Iron saturation is low, though ferritin is high. Ferritin is an acute phase reactant, so the acute illness may also be causing the ferritin to be elevated. * check stool for occult blood * trend Hb and give iron supplementation if stool for occult blood is negative. * #Elevated troponin * initial troponin was 241, and trended down to 215. * However, this may have been due to decreased renal clearance due to the BALWINDER * she had no chest pain. WIll get 2D echo out of an abundance of caution * #Hypertension: lisinopril and amlodipine on hold due to BALWINDER and hypotension. IV hydralazine prn #Depression and anxiety: on citalopram. 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 If Hb continues to trend downwards, stop heparin and start SCDs. Charges/Coding Visit Charges Inpatient E&M: 10214 Subs Hosp L3
[2023-11-30] MEDS: Sodium Polystyrene Sulfonate 15 GM/60 ML UDC 30 GM PO (09:57)
--- NOTE | 2023-11-30 09:57 | EKG12_ITS ---
Test Reason : GENERAL Blood Pressure : / mmHG Vent. Rate : 069 BPM Atrial Rate : 069 BPM P-R Int : 172 ms QRS Dur : 084 ms QT Int : 406 ms P-R-T Axes : 049 -48 071 degrees QTc Int : 435 ms Normal sinus rhythm Left anterior fascicular block Abnormal ECG Confirmed by ALTAGRACIA RABAGO, DAVID ([id number]), newspaper or periodical editor ADÁN WAGNER ([id number]) on 11/30/2023 1:47:08 PM Referred By: Jose De Jesus Dash Confirmed By:DAVID FRIAS MD
[2023-11-30] MEDS: Calcium Gluconate 1 GM/10 ML Vial IVP (09:59)
--- NOTE | 2023-11-30 10:26 | CON.PCM.RE_ITS ---
Assessment & Plan Assessment/Plan (1) BALWINDER (acute kidney injury): (2) Hyperkalemia: (3) Metabolic acidosis: (4) Hypotension: PLAN: Plan This is a very pleasant 78-year-old female with past medical history significant for hypertension, osteoporosis, sleep apnea who was admitted to the hospital for BALWINDER, hypotension, acute debility. Nephrology consulted for BALWINDER. Patient does not have history of CKD, she has normal baseline serum creatinine trends, on 11/09/2023 serum creatinine 0.79. In the emergency room creatinine 6.02 and today her creatinine improved to 3.74. Renal ultrasound unremarkable, no hydronephrosis. Urinalysis no blood, 15 protein. Chest x-ray clear. Likely BALWINDER from hypotension with poor renal perfusion with recent poor oral intake with concurrent lisinopril use. With IV fluids and volume expansion blood pressures have improved and kidney function also improved. Potassium was 5.3 yesterday, today it is 6.1; hyperkalemia likely secondary to BALWINDER, ENRIKE inhibitor, Bactrim and dietary indiscretion. Patient has received Kayexalate, IV dextrose, calcium gluconate, insulin this morning. ENRIKE inhibitor and Bactrim have been discontinued. Patient was on lactated Ringer's but that was stopped. Recommend to continue with IV fluids, we will start patient on bicarb drip. Will check potassium later today. Added low potassium diet restrictions and reviewed this with patient. Patient recently on antibiotics therefore will check complement levels. UA did not show any blood. There is no acute indication for renal replacement therapy as renal function is improving, patient nonoliguric. We will continue to follow the patient along with you. Further orders forthcoming as hospitalization evolves, thank you for allowing us participate in the care of Ms. Tate. HPI Consult Data Date of Consult: 11/30/23 HPI Narrative HPI Narrative: ALEXUS TATE, is a 78 F with past medical history significant for HTN, Sleep apnea, osteoporosis presented to ER with complaints of feeling unwell, fatique, weakness, noted to be significantly hypotensive in the ER, BP 70s/40s. Lab work in the ER showed creatinine of 6.02, potassium 5.3, patient was admitted for further evaluation and treatment. Nephrology consulted in view of rising creatinine. Reviewing past serum creatinine trends, patient has normal baseline creatinine, on 11/09/2023 serum creatinine 0.79. Today her creatinine has improved to 3.74. Potassium is up to 6.1. Patient was in the emergency room on November 12 being seen for abscess of her left shoulder, underwent I&D and started on cephalexin and discharged from the emergency room to home. Patient states she then saw her PCP who started her on Bactrim. Patient reports she had been feeling well up until around Sunday started to feel unwell, poor appetite, dizziness and had to leave work early. Patient denies any falls. Patient denies any rash. She denies any dysuria or hematuria. No recent NSAIDs; does not take naproxen any longer. Patient reports she is feeling better this morning. [facility] Medical History Osteoporosis CPAP (continuous positive airway pressure) dependence Sleep apnea De Quervain's disease (tenosynovitis) Stroke History of cancer of vulva Home Medications ?Medication ?Instructions ?Recorded ?Last Taken ?Type citalopram 20 mg tablet 20 mg PO DAILY DEPRESSION 04/02/17 11/29/23 History [id number] 8 mg-folic 400 1 ea PO DAILY SUPPLEMENT 04/02/17 11/29/23 History mcg-K 50 mcg-lutein 300 mcg tablet (Centrum Silver Women) simvastatin 40 mg tablet 40 mg PO DAILY CHOLESTEROL 04/02/17 11/29/23 History amlodipine 2.5 mg tablet 2.5 mg PO DAILY 06/10/21 11/29/23 History gabapentin 300 mg capsule 300 mg PO TID 06/10/21 11/29/23 History acetaminophen 500 mg tablet 1,000 mg PO BID PRN pain 11/29/23 11/29/23 History lisinopril 20 mg tablet 20 mg PO DAILY 11/29/23 11/29/23 History sulfamethoxazole 800 2 tab PO BID 11/29/23 11/29/23 History mg-trimethoprim 160 mg tablet Allergy/AdvReac Type Severity Reaction Status Date / Time acetaminophen (From Percocet) Allergy Severe Anaphylaxis Verified 11/29/23 12:18 oxycodone (From Percocet) Allergy Severe Anaphylaxis Verified 11/29/23 12:18 ibuprofen AdvReac Mild Nausea Verified 11/29/23 12:18 Family History Mother Heart disease Hypertension CVA (cerebral vascular accident) Diabetes Arthritis Father Cancer Alcoholism Sister Cancer Surgical History History of appendectomy History of total hip replacement Hx of hernia repair Hx of hysterectomy History of ankle surgery Social History household members: none current occupational status: employed current occupation: [employer] Smoking Status: Former smoker Tobacco: How many years used: 40 alcohol intake: never substance use type: does not use what type of physical activity do you participate in: walking and other frequency: 3-4 times per week seatbelt use: always do you feel safe at home: Yes additional social history: single ROS ROS Narrative As in HPI Physical Exam Narrative Alert and orient x 3, no apparent distress S1, S2, RRR Lung sounds clear. No rales, wheezes or rhonchi Abdomen soft, nontender No edema Lab / Micro Data 11/30/23 06:32 11/30/23 06:32 Labs: Laboratory Results - last 24 hr 11/29/23 13:01: WBC 8.5, RBC 3.09 L, Hgb 9.7 L, Hct 30.0 L, MCV 97.1, MCH 31.4, MCHC 32.3, RDW Std Deviation 50.2 H, RDW Coeff of Robbi 13.9, Plt Count 285, MPV 8.5, Immature Gran % (Auto) 0.400, Neut % (Auto) 66.6, Lymph % (Auto) 19.1, [place] % (Auto) 9.1, Eos % (Auto) 4.6, Baso % (Auto) 0.2, Absolute Neuts (auto) 5.7, Absolute Lymphs (auto) 1.63, Nucleated RBC % 0, PT 14.1, INR 1.1, APTT 26.1, S odium 133 L, Potassium 5.3 H, Chloride 102, Carbon Dioxide 23.0, Anion Gap 8, B UN 77 H, Creatinine 6.02 H, Est GFR (MDRD) Af Amer 9 L, Est GFR (MDRD) Non-Af 7 L, BUN/Creatinine Ratio 12.8, Glucose 79, Lactic Acid 1.5, Calcium 9.2, P hosphorus 6.2 H, Magnesium 2.5, Total Bilirubin 0.20, AST 24, ALT 21, Alkaline Phosphatase 67, Troponin I High Sens 241 H*, Total Protein 6.8, Albumin 2.9 L, Globulin 3.9, Albumin/Globulin Ratio 0.7 L, Urine Color Yellow, Urine Clarity Clear, Urine pH 5.0, Ur Specific [place] 1.025, Urine Protein 15 H, Urine Glucose (UA) Normal, Urine Ketones Negative, Urine Occult Blood Negative, Urine Nitrite Negative, Urine Bilirubin 6 H, Urine Urobilinogen Normal, Ur Leukocyte Esterase 25 H, Urine RBC 0 SEEN, Urine WBC 5-10 SEEN, Ur Squamous Epith Cells 0 SEEN, Amorphous Sediment 2+, Urine Bacteria 2+, Urine Mucus 0 SEEN, Ur Random Sodium 40, Urine Creatinine 186.00 11/29/23 15:07: Troponin I High Sens 215 H* 11/29/23 22:15: Iron 40 L, TIBC 227 L, Iron Saturation 17.6, Ferritin 433 H, Vitamin B12 386, Folate 30.00 11/30/23 06:32: WBC 6.5, RBC 2.86 L, Hgb 8.9 L, Hct 28.0 L, MCV 97.9, MCH 31.1, MCHC 31.8 L, RDW Std Deviation 48.4 H, RDW Coeff of Robbi 13.5, Plt Count 287, MPV 9.0, Sodium 135 L, Potassium 6.1 H*, Chloride 112 H, Carbon Dioxide 17.0 L, Anion Gap 6, BUN 61 H, Creatinine 3.74 H, Estim Creat Clear Calc 10.26, Est GFR (MDRD) Af Amer 15 L, Est GFR (MDRD) Non-Af 12 L, BUN/Creatinine Ratio 16.3, Glucose 78, Calcium 8.6 Micro: Microbiology 11/29/23 13:01 Urine, Catheterized Urine Culture - Preliminary Culture exhibits no growth. 11/29/23 13:01 Urine, Clean Catch Urine Culture - Preliminary Culture exhibits no growth. 11/29/23 13:01 Mucosa - Nose SARS-CoV-2, Influenza & RSV (PCR) - Final ABG Data ABG results: ABG 11/29/23 13:47 Specimen Type REEMA Sample Site Not entered VBG pH 7.26 L VBG pO2 48 H VBG HCO3 19 L VBG Total CO2 20 L VBG O2 Sat (Calc) 77 H VBG Base Excess -8 L POC Mix VBG pCO2 Pt Tmp 42.4 O2 Delivery Device Not entered Imaging Radiology Impression Brain CT 11/29/23 12:48 IMPRESSION: Small vessel ischemia. Electronically Signed: Saray Marlow MD at 13:53 EDT , Chest X-Ray 11/29/23 13:32 IMPRESSION: No radiographic evidence of acute cardiopulmonary disease. Electronically Signed: Saray Marlow MD at 13:54 EDT , Renal Ultrasound 11/29/23 15:06 IMPRESSION: Negative renal ultrasound. Electronically Signed: Harpreet Agrawal MD at 17:13 EDT ,
[2023-11-30] MEDS: 0.9% Saline Lock 10 ML Syringe IV ×2 (10:44→14:03)
[2023-11-30] MEDS: Insulin Lispro 10 UNIT in Syringe 0 ML 6 UNIT IV (10:44)
[2023-11-30] MEDS: Sodium Bicarbonate 100 MEQ in Dextrose 5%-Water (1000mL Bag) 1,000 ML IV ×2 (11:15→20:59)
[2023-11-30 11:45] LABS: Bedside Glucose 66 mg/dL (74-106)
[2023-11-30 11:45] LABS: Bedside Glucose 115 mg/dL (74-106)
--- NOTE | 2023-11-30 13:11 | CASEMGMT ---
JACKELYN GR Assessment Face to Face with patient for initial transition planning/care coordination assessment. JACKELYN GR introduced self and role at [facility], pt voices understanding. Pt is A&Ox4 and is resting comfortably in bed and is calm. Care providers, pharmacy, and demographics verified. Admitting dx: BALWINDER with concerns for SEPSIS LACE Strata: 2 PCP: Agus Malik Specialists: Denies Preferred Pharmacy: [facility] Insurance: [employer] Prescription Benefit: Yes LNOK: Jose Vences (son) Living Arrangements: Pt lives with her 57 y/o friend/ roommate in a single story home with a basement with a stair lift and a flat entrance ADLs/IADLs: Ind Transportation: Self, friend DME: CPAP but states that she cannot get used to wearing this. BP Monitor. Pox. shower chair with grab bars. Pt states that she has the following DME but does not use: Cane, FWW, W/C. HHC/SNF: Denies HHC Hx. States Hx at [facility] Pt?s goal: Home Plan: Home no needs. 6-Click is 24. Pt was cleared by PT. Pt states that she works still and wants to return when able. Pt denies further needs at this time. Wayne Hudson RN, CM
--- NOTE | 2023-11-30 14:27 | CHAPLAIN ---
Type of Pastoral Visit _x__ Initial Visit ___ Follow-up Visit ___ On-call Visit ___ General Patient Visit ___ Spiritual Assessment ___ Family Conference ___ Bereavement ___ Rapid Response ___ Code Blue ___ Other (describe below) Pastoral Care Referral From _x__ Patient ___ Family ___ Nurse ___ Physician ___ Supply Crib Attendant ___ Flight Engineer Inspector ___ Other (describe below) Sacrament/Intervention _x__ Active listening ___ Anointing ___ Restorationist ___ Bereavement ___ Communion ___ Yelena exploration ___ ___ Life review _x__ Prayer ___ Reconciliation ___ Sacrament of Sick ___ Supportive presence ___ Wedding ___ Other (describe below) Pastoral Comments patient is sitting up in the chair and is in no distress; pt is welcoming and give her insights on her health; pt has a renter in my house; pt has no concerns or worries as the friend will care for the cat and dog; prayer is requested
[2023-11-30 14:45] VITALS: BP 107/50; PULSE 92; RESP 18; TEMP 36.5; O2SAT 94
[2023-11-30 15:03] LABS: Potassium 5.2 mmol/L (3.5-5.1)
[2023-11-30 22:00] VITALS: BP 147/70; PULSE 88; RESP 18; TEMP 36.9; O2SAT 96
[2023-12-01 05:00] VITALS: BP 168/74; PULSE 79; RESP 18; TEMP 36.8; O2SAT 94
[2023-12-01] MEDS: Gabapentin 300 MG Capsule PO ×3 (05:16→21:18)
[2023-12-01] MEDS: Heparin Injection (Vial) 5,000 UNIT/ML VIAL 5000 UNIT SC ×3 (05:16→21:18)
[2023-12-01 07:20] LABS: Absolute Lymphocyte Count 2.88 X10^3/uL (0.83-4.51); Basophil# 0.04 X10^3/uL; Basophil% 0.7 % (0-1); Eosinophil# 0.24 X10^3/uL; Eosinophils% 4.2 % (0-5); Hematocrit 27.4 % (37-47); Lymphocyte # 2.88 X10^3/ul (0.83-4.51); Lymphocyte % 50.3 % (19-41); Mean Corp Hgb Conc 32.8 g/dL (32-36); Mean Corpuscular Hgb 31.4 pg (27.0-32.0); Mean Corpuscular Volume 95.5 fL (81-99); Mean Platelet Vol. 8.9 fl (6.2-12.0); Monocyte# 0.56 X10^3/uL; Monocyte% 9.8 % (0-10); NRBC Flagged by Analyzer 0 % (0-5); Neutrophil % 34.8 % (47-70); Platelet Count 267 K/mm3 (150-450); RBC Distribution Width CV 13.2 % (11.6-14.6); RBC Distribution Width SD 46.2 fl (35.1-43.9); Red Blood Count 2.87 M/mm3 (4.2-5.4); White Blood Count 5.7 K/mm3 (4.4-11.0)
[2023-12-01 07:31] LABS: Anion Gap 4 (5-15); BUN 40 mg/dL (7-18); BUN/Creat Ratio 20.3 RATIO (10-20); Calcium,Total 8.9 mg/dL (8.5-10.1); Chloride 107 mmol/L (98-107); Creatinine, Serum 1.97 mg/dL (0.55-1.02); EST Glomerular Filtration Rate 26 mL/min (>60); Est Glom Filt Rate - Afr Amer 31 mL/min (>60); Estimated Creatinine Clearance 19.48 ml/min; Glucose 102 mg/dL (74-106); Potassium 4.3 mmol/L (3.5-5.1); Sodium Level 139 mmol/L (136-145)
--- NOTE | 2023-12-01 07:31 | ECHOD_ITS ---
Version 2 Reason For Study: ELEVATED TROPONIN, CONCERN FOR SEPSIS Procedure This was a 2D Doppler, Color Flow transthoracic echocardiogram. Exam performed portable in patient room. Left Ventricle Normal LV size. Left ventricular systolic function is hyperdynamic. The left ventricular ejection fraction is 75 %. Stage 1 diastolic dysfunction. Valsalva LV gradient 117 mmHg. No regional wall motion abnormalities noted. Right Ventricle Normal RV size. Normal systolic function. Mitral Valve Systolic anterior motion of the mitral valve. Pulmonic Valve Normal pulmonic valve. Great Vessels Normal aortic root. The pulmonary artery is normal size. Normal inferior vena cava. Pericardium/Pleural No pericardial effusion. MMode/2D Measurements & Calculations LVIDd: 3.7 cm IVSd: 1.0 cm Ao root diam: 2.5 cm LVIDs: 2.1 cm LVPWd: 1.1 cm LA dimension: 3.2 cm FS: 42.9 % LAV(MOD-bp): 40.6 ml SV(MOD-sp4): 49.9 ml LVAd ap4: 23.3 cm2 LAV(MOD-bp) Indexed: 25.1 ml/m2 LVLd ap4: 7.0 cm LAV(MOD-sp2): 35.1 ml EDV(MOD-sp4): 63.1 ml LAV(MOD-sp4): 41.0 ml EDV(sp4-el): 65.3 ml LVAs ap4: 9.2 cm2 LVLs ap4: 5.4 cm ESV(MOD-sp4): 13.2 ml ESV(sp4-el): 13.3 ml EF(MOD-sp4): 79.1 % EF(sp4-el): 79.7 % SV(sp4-el): 52.0 ml LA A4 area: 15.0 cm2 RA A4 area: 11.4 cm2 TAPSE: 2.3 cm Time Measurements MV dec time: 0.24 sec Doppler Measurements & Calculations MV E max alex: 97.8 cm/sec Lat Peak E' Alex: 6.8 cm/sec Med Peak E' Alex: 6.6 cm/sec MV A max alex: 145.4 cm/sec E/E' lat: 14.4 E/E' med: 14.9 MV E/A: 0.67 MV V2 max: 146.4 cm/sec MV P1/2t max alex: 112.5 cm/sec Ao V2 max: 216.3 cm/sec MV max P.6 mmHg MV P1/2t: 62.7 msec Ao max P.7 mmHg MV V2 mean: 89.7 cm/sec MV dec slope: 525.1 cm/sec2 Ao V2 mean: 144.3 cm/sec MV mean P.6 mmHg MVA(P1/2t): 3.5 cm2 Ao mean P.5 mmHg MV V2 VTI: 30.7 cm Ao V2 VTI: 40.9 cm PA V2 max: 120.4 cm/sec PA V2 mean: 94.1 cm/sec ECHO/Echo Complete Interpretation Summary The left ventricular ejection fraction is 75 %. Left ventricular systolic function is hyperdynamic. Normal LV size. Stage 1 diastolic dysfunction. Valsalva LV gradient 117 mmHg. Systolic anterior motion of the mitral valve. Ordering Physician: Karla Cruz Referring Physician: Jose De Jesus Dash Performed By: Adilene Schreiber, BENITA, RVT
--- NOTE | 2023-12-01 09:17 | PN_ITS ---
Subjective Subjective Patient seen and examined. She had no active complaints. Review of systems is otherwise negative. She has remained hemodynamically stable. Cr is down to 1.97 today. Objective Data Objective Data Vital Signs: Vital Signs Temp Pulse Resp BP Pulse Ox O2 Del Method 98.3 F 79 18 168/74 H 94 Room Air 12/01/23 05:00 12/01/23 05:00 12/01/23 05:00 12/01/23 05:00 12/01/23 05:00 12/01/23 05:00 Oxygen Delivery Method Room Air Weight: 143 lb 4.807 oz Body Mass Index (BMI) 28.0 Intake & Output: Intake and Output for Last 24 Hours 11/29/23 11/30/23 12/01/23 23:59 23:59 23:59 Intake Total 2270 / 2270 1683.33 / 2183.33 1600 / 1600 Output Total 325 / 325 600 / 1500 900 / 900 Balance 1945 / 1945 1083.33 / 683.33 700 / 700 Lab / Micro Data 12/01/23 06:38 12/01/23 06:38 Labs: Laboratory Results - last 24 hr 11/30/23 10:04: POC Glucose 66 L 11/30/23 10:42: POC Glucose 115 H 11/30/23 14:46: Potassium 5.2 H 12/01/23 06:38: WBC 5.7, RBC 2.87 L, Hgb 9.0 L, Hct 27.4 L, MCV 95.5, MCH 31.4, MCHC 32.8, RDW Std Deviation 46.2 H, RDW Coeff of Robbi 13.2, Plt Count 267, MPV 8.9, Immature Gran % (Auto) 0.200, Neut % (Auto) 34.8 L, Lymph % (Auto) 50.3 H, [place] % (Auto) 9.8, Eos % (Auto) 4.2, Baso % (Auto) 0.7, Absolute Neuts (auto) 2.0, Absolute Lymphs (auto) 2.88, Nucleated RBC % 0, Sodium 139, Potassium 4.3, Chloride 107, Carbon Dioxide 28.0, Anion Gap 4 L, BUN 40 H, Creatinine 1.97 H, Estim Creat Clear Calc 19.48, Est GFR (MDRD) Af Amer 31 L, Est GFR (MDRD) Non-Af 26 L, BUN/Creatinine Ratio 20.3 H, Glucose 102, Calcium 8.9 Micro: Microbiology 11/29/23 13:01 Urine, Catheterized Urine Culture - Final Culture exhibits no growth. 11/29/23 13:01 Urine, Clean Catch Urine Culture - Final Culture exhibits no growth. 11/29/23 13:01 Mucosa - Nose SARS-CoV-2, Influenza & RSV (PCR) - Final Physical Exam Const alert, oriented x3, no apparent distress and well nourished General Appearance: cooperative and comfortable HEENT normocephalic, head/scalp atraumatic, hearing grossly normal bilaterally and nasal mucous membranes and turbinates normal Eyes PERRL, EOMs intact bilaterally and conjunctivae normal Neck full ROM, no lymphadenopathy, supple and no JVD Lymph Lymphatic: no lymphadenopathy noted and no lymphedema noted Chest inspection of chest normal Resp normal respiratory effort, normal air movement, no use of accessory muscles and clear to auscultation bilaterally Cardio regular rate, regular rhythm, S1 normal heart sound, S2 normal heart sound, no murmurs and peripheral pulses 2+ throughout GI normal to inspection, nondistended, normoactive bowel sounds, soft to palpation, non-tender and non-distended Back/Spine normal ROM Extremity normal to inspection, full ROM, normal capillary refill, no clubbing, cyanosis or edema and no calf tenderness General Extremity: no tenderness to palpation of joints or extremities Skin no rashes or lesions noted General Skin Exam: no breakdown Neuro CN's II-XII intact bilaterally, moves all extremities, no focal motor deficits, no sensory deficits noted and deep tendon reflexes 2+ bilaterally Speech: speech normal Motor Exam: strength 5/5 throughout and general weakness Psych mental status grossly normal, thought process normal and cooperative Appearance: appropriate Assessment & Plan Assessment/Plan (1) BALWINDER (acute kidney injury): (2) Debility: PLAN: Plan #BALWINDER with hyperkalemia * Cr was 6.02 on admission. Patient was hypotensive on admission,a nd concern is the BALWINDER may ahve been due to pre renal causes. * Cr is down to 1.97 today. * FeNa was 1%, indicating either a pre renal or intrinsic kidney condition. * renal USG showed no evidence of hydronephrosis on the right or left kidney, and no abnormality in the bladder. * insert Carpenter catheter * nephrology on board. * monitor urine output. Trend Cr * BP meds on hold. Hold any and all nephrotoxic meds * of note, it seems patient had been on bactrim also, which could contribute to BALWINDER. It has now been discontinued. #Nonanion gap metabolic acidosis * Nephrology on board. She received bicarb drip overnight. * Management as per nephrology. Bicarb today is 28. * * #Cystitis * urinalysis showed 2+ bacteria. ON IV ceftriaxone. Urine culture is negative. Will switch to p.o. cefdinir 300 mg twice daily for 5 days. #Debility and weakness * PT/OT no board. Fall precautions #Anemia * Hb today is 9. * Iron profile showed iron being low at 40, ferritin level of 433 and iron sats of 17.6. TIBC is 227. * Iron saturation is low, though ferritin is high. Ferritin is an acute phase reactant, so the acute illness may also be causing the ferritin to be elevated. * Stool for occult blood is pending. If it is negative, will give oral iron supplementaiton * Will monitor. Baseline hemoglobin appears to be around 01/26/2023. * #Elevated troponin * initial troponin was 241, and trended down to 215. * However, this may have been due to decreased renal clearance due to the BALWINDER * she had no chest pain. * 2D echo ordered and pending * #Hypertension: * lisinopril and amlodipine on hold due to BALWINDER and hypotension. * Will resume amlodipine sinc BP has started trending upwards. * IV hydralazine prn #Depression and anxiety: on citalopram. #Hyperlipidemia: on statin #Peripheral neuropathy: on gabapentin DVT prophylaxis: heparin. If Hb continues to trend downwards, stop heparin and start SCDs. Charges/Coding Visit Charges Inpatient E&M: 25391 Subs Hosp L2
[2023-12-01 10:08] LABS: Complement C3 150 mg/dL (82-167)
[2023-12-01 10:57] VITALS: BP 115/50; PULSE 83; RESP 18; TEMP 36.8; O2SAT 93
[2023-12-01] MEDS: Atorvastatin Calcium 20 MG Tablet PO (11:01)
[2023-12-01] MEDS: Citalopram 20 MG Tablet PO (11:01)
[2023-12-01 13:08] LABS: ANTINUCLEAR ANTIBODIES DIRECT Positive (Negative); Anti-Centromere B Ab <0.2 AI (0.0-0.9); Anti-Chromatin <0.2 AI (0.0-0.9); Anti-Jo <0.2 AI (0.0-0.9); Anti-Scleroderma-70 AB <0.2 AI (0.0-0.9); Anti-dsDNA Ab 11 IU/mL (0-9); RNP Ab <0.2 AI (0.0-0.9); SJOGREN'S Anti-SS-A test < 0.2 AI (0.0-0.9); SJOGREN'S Anti-SS-B test < 0.2 AI (0.0-0.9); Smith Ab <0.2 AI (0.0-0.9)
[2023-12-01 13:53] VITALS: BP 157/67; PULSE 80; RESP 18; TEMP 37.1; O2SAT 97
[2023-12-01] MEDS: Sodium Bicarbonate 100 MEQ in Dextrose 5%-Water (1000mL Bag) 1,000 ML IV (14:02)
[2023-12-01 18:00] VITALS: BP 163/70; PULSE 83; RESP 20; TEMP 36.8; O2SAT 98
[2023-12-01 22:00] VITALS: BP 170/73; PULSE 80; RESP 18; TEMP 37; O2SAT 98
--- NOTE | 2023-12-01 22:18 | PCM.HOSP.N ---
Hospitalist Note Pending Stool guiac now returned positive, will d/c heparin SC regimen and add protonix.
[2023-12-02] MEDS: Sodium Bicarbonate 100 MEQ in Dextrose 5%-Water (1000mL Bag) 1,000 ML IV (00:09)
[2023-12-02] MEDS: Pantoprazole Sodium 40 MG in 0.9% Normal Saline (100mL MB+) 100 ML 330 MG IV ×3 (00:10→20:04)
[2023-12-02 05:00] VITALS: BP 155/68; PULSE 75; RESP 18; TEMP 37.2; O2SAT 92
[2023-12-02] MEDS: Gabapentin 300 MG Capsule PO ×3 (05:03→20:07)
[2023-12-02 06:25] VITALS: BP 106/70
[2023-12-02 06:58] LABS: Absolute Lymphocyte Count 3.58 X10^3/uL (0.83-4.51); Absolute Neutrophil Count 1.8 X10^3/uL (2.0-7.7); Basophil# 0.03 X10^3/uL; Basophil% 0.5 % (0-1); Eosinophil# 0.26 X10^3/uL; Eosinophils% 4.1 % (0-5); Hematocrit 27.9 % (37-47); Lymphocyte # 3.58 X10^3/ul (0.83-4.51); Lymphocyte % 55.9 % (19-41); Mean Corp Hgb Conc 32.3 g/dL (32-36); Mean Corpuscular Hgb 31.1 pg (27.0-32.0); Mean Corpuscular Volume 96.5 fL (81-99); Mean Platelet Vol. 9.1 fl (6.2-12.0); Monocyte# 0.68 X10^3/uL; Monocyte% 10.6 % (0-10); NRBC Flagged by Analyzer 0 % (0-5); Neutrophil # 1.83 X10^3/uL (2.7-7.7); Neutrophil % 28.6 % (47-70); Platelet Count 256 K/mm3 (150-450); RBC Distribution Width CV 13.1 % (11.6-14.6); RBC Distribution Width SD 45.9 fl (35.1-43.9); Red Blood Count 2.89 M/mm3 (4.2-5.4); White Blood Count 6.4 K/mm3 (4.4-11.0)
[2023-12-02 07:19] LABS: Anion Gap 3 (5-15); BUN 28 mg/dL (7-18); BUN/Creat Ratio 23.3 RATIO (10-20); Calcium,Total 8.8 mg/dL (8.5-10.1); Chloride 103 mmol/L (98-107); EST Glomerular Filtration Rate 46 mL/min (>60); Est Glom Filt Rate - Afr Amer 56 mL/min (>60); Estimated Creatinine Clearance 31.99 ml/min; Glucose 103 mg/dL (74-106); Potassium 4.1 mmol/L (3.5-5.1); Sodium Level 137 mmol/L (136-145)
[2023-12-02] MEDS: Citalopram 20 MG Tablet PO (09:40)
[2023-12-02] MEDS: Atorvastatin Calcium 20 MG Tablet PO (09:40)
[2023-12-02 10:04] VITALS: BP 154/90; PULSE 75; RESP 18; TEMP 37; O2SAT 96
--- NOTE | 2023-12-02 11:44 | PN_ITS ---
Subjective Subjective Patient seen and examined. She has no complaints this morning. She is feeling better today. Creatinine is down to 1.2. Review of systems otherwise negative. Objective Data Objective Data Vital Signs: Vital Signs Temp Pulse Resp BP Pulse Ox O2 Del Method 98.6 F 75 18 154/90 H 96 Room Air 12/02/23 10:04 12/02/23 10:04 12/02/23 10:04 12/02/23 10:04 12/02/23 10:04 12/02/23 10:04 Oxygen Delivery Method Room Air Weight: 143 lb 4.807 oz Body Mass Index (BMI) 28.0 Intake & Output: Intake and Output for Last 24 Hours 11/30/23 12/01/23 12/02/23 23:59 23:59 23:59 Intake Total 1683.33 / 2183.33 2065 / 2725 1426.67 / 1426.67 Output Total 600 / 1500 3500 / 4400 1600 / 1600 Balance 1083.33 / 683.33 -1435 / -1675 -173.33 / -173.33 Lab / Micro Data 12/02/23 06:20 12/02/23 06:20 Labs: Laboratory Results - last 24 hr 11/30/23 06:32: GOLDIE Screen Positive H, ISHAAN-1 Antibody <0.2, SS-A/Ro IgG Antibody < 0.2, SS-B/La IgG Antibody < 0.2, Sm ([place]) Antibody <0.2, [employer] SUPERVISOR Antibody <0.2, Scl-70 Scleroderma Ab <0.2, Double Strand DNA Ab 11 H, Antichromatin Antibodies <0.2, Centromere B Antibody <0.2 12/02/23 06:20: WBC 6.4, RBC 2.89 L, Hgb 9.0 L, Hct 27.9 L, MCV 96.5, MCH 31.1, MCHC 32.3, RDW Std Deviation 45.9 H, RDW Coeff of Robbi 13.1, Plt Count 256, MPV 9.1, Immature Gran % (Auto) 0.300, Neut % (Auto) 28.6 L, Lymph % (Auto) 55.9 H, [place] % (Auto) 10.6 H, Eos % (Auto) 4.1, Baso % (Auto) 0.5, Absolute Neuts (auto) 1.8 L, Absolute Lymphs (auto) 3.58, Nucleated RBC % 0, Sodium 137, Potassium 4.1, Chloride 103, Carbon Dioxide 31.0, Anion Gap 3 L, BUN 28 H, Creatinine 1.20 H, Estim Creat Clear Calc 31.99, Est GFR (MDRD) Af Amer 56 L, Est GFR (MDRD) Non-Af 46 L, BUN/Creatinine Ratio 23.3 H, Glucose 103, Calcium 8.8 Micro: Microbiology 12/01/23 20:52 Stool Stool Occult Blood (MARLEE) - Final Occult Blood Positive 11/29/23 13:01 Blood Culture (Wb) - Anticubital Left Blood Culture - Preliminary No growth in 48 hours. 11/29/23 13:01 Urine, Catheterized Urine Culture - Final Culture exhibits no growth. 11/29/23 13:01 Urine, Clean Catch Urine Culture - Final Culture exhibits no growth. 11/29/23 13:01 Mucosa - Nose SARS-CoV-2, Influenza & RSV (PCR) - Final Physical Exam Const alert, oriented x3 and no apparent distress General Appearance: cooperative and comfortable HEENT normocephalic, head/scalp atraumatic, hearing grossly normal bilaterally and nasal mucous membranes and turbinates normal Eyes PERRL, EOMs intact bilaterally and conjunctivae normal Neck full ROM, no lymphadenopathy, supple and no JVD Lymph Lymphatic: no lymphadenopathy noted and no lymphedema noted Chest inspection of chest normal Resp normal respiratory effort, normal air movement, no use of accessory muscles and clear to auscultation bilaterally Cardio regular rate, regular rhythm, S1 normal heart sound, S2 normal heart sound, no murmurs and peripheral pulses 2+ throughout GI normal to inspection, nondistended, normoactive bowel sounds, soft to palpation, non-tender and non-distended Back/Spine normal ROM Extremity normal to inspection, full ROM, normal capillary refill and no clubbing, cyanosis or edema General Extremity: no tenderness to palpation of joints or extremities Skin no rashes or lesions noted General Skin Exam: no breakdown Neuro CN's II-XII intact bilaterally, moves all extremities, no focal motor deficits, no sensory deficits noted and deep tendon reflexes 2+ bilaterally Speech: speech normal Motor Exam: strength 5/5 throughout and general weakness Psych mental status grossly normal, thought process normal and cooperative Appearance: appropriate Assessment & Plan Assessment/Plan (1) BALWINDER (acute kidney injury): (2) Debility: PLAN: Plan #BALWINDER with hyperkalemia * Cr was 6.02 on admission. Patient was hypotensive on admission,a nd concern is the BALWINDER may ahve been due to pre renal causes. * Cr is down to 1.2 today. * FeNa was 1%, indicating either a pre renal or intrinsic kidney condition. * renal USG showed no evidence of hydronephrosis on the right or left kidney, and no abnormality in the bladder. * insert Carpenter catheter * nephrology on board. * monitor urine output. * BP meds on hold. Hold any and all nephrotoxic meds * of note, it seems patient had been on bactrim also, which could contribute to BALWINDER. It has now been discontinued. #Nonanion gap metabolic acidosis * Nephrology on board. She received bicarb drip during this admission * has now resolved. * Management as per nephrology. Bicarb today is 28. * will dc bicarb drip * * #Cystitis * urinalysis showed 2+ bacteria. * received IV ceftriaxone * Urine culture is negative. * will give PO cefdinir 300mg bid x 5 days out of an abundance of precaution. #Debility and weakness * PT/OT no board. Fall precautions #Anemia * Hb today is 9. * Iron profile showed iron being low at 40, ferritin level of 433 and iron sats of 17.6. TIBC is 227. * Iron saturation is low, though ferritin is high. Ferritin is an acute phase reactant, so the acute illness may also be causing the ferritin to be elevated. * Stool for occult blood is positive. Hb is 9. will consult gastroenterology. * Will monitor. Baseline hemoglobin appears to be around 12.6 from May 2022. * #Elevated troponin * initial troponin was 241, and trended down to 215. * However, this may have been due to decreased renal clearance due to the BALWINDER * she had no chest pain. * 2D echo ordered and per cardiology, showed hyperdynamic left ventricle. Cardiology was concerned about possible left ventricular outlet obstruction but would want repeat images done tomorrow to evaluate again. * #Hypertension: * on lisinopril and amlodipine. DC lisinopril in light of severe BALWINDER. amlodipine increased to 10mg daily #Depression and anxiety: on citalopram. #Hyperlipidemia: on statin #Peripheral neuropathy: on gabapentin DVT prophylaxis: SCDs; dc heparin due to stool for occult blood being positive. Charges/Coding Visit Charges Inpatient E&M: 75899 Subs Hosp L2
[2023-12-02] MEDS: amLODIPine 10 MG Tablet PO (13:36)
[2023-12-02] MEDS: Cefdinir 300 MG Capsule PO ×2 (13:36→20:04)
[2023-12-02 14:00] VITALS: BP 149/66; PULSE 79; RESP 18; TEMP 36.9; O2SAT 96
--- NOTE | 2023-12-02 19:42 | EX.PCM.CON.G ---
HPI Consult Data Date of Consult: 12/02/23 HPI Narrative Reason for Consultation: Dysphagia HPI Narrative: ALEXUS TATE, is a78 F who presented to [facility] ED on 11/29/2023 with several concerns including worsening weakness, mild confusion and hypotension. She was found to have a blood pressure in the 70s and heart rate into the 110s. In her laboratory analysis she was found to have a creatinine of 6.02, up from her baseline of 0.7. She notably had a creatinine of 0.7 on last check on 11/08. Patient was seen in the ED here on 11/12 for an abscess with drainage in the left posterior shoulder area. I&D was done at that time and a large amount of purulent drainage was expressed. Her wound was irrigated with copious amounts of normal saline and wound was left open. I was asked to see her due to a decreasing hemoglobin. Her baseline hemoglobin appears to be around 12.6 from May 2022. [facility] Medical History Osteoporosis CPAP (continuous positive airway pressure) dependence Sleep apnea De Quervain's disease (tenosynovitis) Stroke History of cancer of vulva Home Medications ?Medication ?Instructions ?Recorded ?Last Taken ?Type citalopram 20 mg tablet 20 mg PO DAILY DEPRESSION 04/02/17 11/29/23 History puonxlyh-dpeg-ssmx 8 mg-folic 400 1 ea PO DAILY SUPPLEMENT 04/02/17 11/29/23 History mcg-K 50 mcg-lutein 300 mcg tablet (Centrum Silver Women) simvastatin 40 mg tablet 40 mg PO DAILY CHOLESTEROL 04/02/17 11/29/23 History amlodipine 2.5 mg tablet 2.5 mg PO DAILY 06/10/21 11/29/23 History gabapentin 300 mg capsule 300 mg PO TID 06/10/21 11/29/23 History acetaminophen 500 mg tablet 1,000 mg PO BID PRN pain 11/29/23 11/29/23 History lisinopril 20 mg tablet 20 mg PO DAILY 11/29/23 11/29/23 History sulfamethoxazole 800 2 tab PO BID 11/29/23 11/29/23 History mg-trimethoprim 160 mg tablet Allergy/AdvReac Type Severity Reaction Status Date / Time acetaminophen (From Percocet) Allergy Severe Anaphylaxis Verified 11/29/23 12:18 oxycodone (From Percocet) Allergy Severe Anaphylaxis Verified 11/29/23 12:18 ibuprofen AdvReac Mild Nausea Verified 11/29/23 12:18 Family History Mother Heart disease Hypertension CVA (cerebral vascular accident) Diabetes Arthritis Father Cancer Alcoholism Sister Cancer Surgical History History of appendectomy History of total hip replacement Hx of hernia repair Hx of hysterectomy History of ankle surgery Social History household members: none current occupational status: employed current occupation: [employer] Smoking Status: Former smoker Tobacco: How many years used: 40 alcohol intake: never substance use type: does not use what type of physical activity do you participate in: walking and other frequency: 3-4 times per week seatbelt use: always do you feel safe at home: Yes additional social history: single ROS Constitutional Constitutional: Reports fatigue and weakness; Denies chills or fever(s) Eyes Eyes: Denies change in vision Cardiovascular Cardiovascular: Reports lightheadedness; Denies chest pain, edema, orthopnea or palpitations Respiratory/Chest Respiratory/Chest: Denies cough, shortness of breath at rest, shortness of breath with exertion or wheezing Gastrointestinal Gastrointestinal: Denies abdominal pain Genitourinary Genitourinary: Denies dysuria Musculoskeletal Musculoskeletal: Denies arthralgias or myalgias Neurologic Neurologic: Reports confusion and dizziness; Denies focal weakness or headache(s) Physical Exam Const alert, oriented x3 and no apparent distress General Appearance: cooperative and comfortable HEENT normocephalic, head/scalp atraumatic, hearing grossly normal bilaterally and nasal mucous membranes and turbinates normal Eyes PERRL, EOMs intact bilaterally and conjunctivae normal Neck full ROM, no lymphadenopathy, supple and no JVD Lymph Lymphatic: no lymphadenopathy noted and no lymphedema noted Chest inspection of chest normal Resp normal respiratory effort, normal air movement, no use of accessory muscles and clear to auscultation bilaterally Cardio regular rate, regular rhythm, S1 normal heart sound, S2 normal heart sound, no murmurs and peripheral pulses 2+ throughout GI normal to inspection, nondistended, normoactive bowel sounds, soft to palpation, non-tender and non-distended Back/Spine normal ROM Extremity normal to inspection, full ROM, normal capillary refill and no clubbing, cyanosis or edema General Extremity: no tenderness to palpation of joints or extremities Skin no rashes or lesions noted General Skin Exam: no breakdown Neuro CN's II-XII intact bilaterally, moves all extremities, no focal motor deficits, no sensory deficits noted and deep tendon reflexes 2+ bilaterally Speech: speech normal Motor Exam: strength 5/5 throughout and general weakness Psych mental status grossly normal, thought process normal and cooperative Appearance: appropriate Lab / Micro Data 12/02/23 06:20 12/02/23 06:20 Labs: Laboratory Results - last 24 hr 12/02/23 06:20: WBC 6.4, RBC 2.89 L, Hgb 9.0 L, Hct 27.9 L, MCV 96.5, MCH 31.1, MCHC 32.3, RDW Std Deviation 45.9 H, RDW Coeff of Robbi 13.1, Plt Count 256, MPV 9.1, Immature Gran % (Auto) 0.300, Neut % (Auto) 28.6 L, Lymph % (Auto) 55.9 H, Ashley % (Auto) 10.6 H, Eos % (Auto) 4.1, Baso % (Auto) 0.5, Absolute Neuts (auto) 1.8 L, Absolute Lymphs (auto) 3.58, Nucleated RBC % 0, Sodium 137, Potassium 4.1, Chloride 103, Carbon Dioxide 31.0, Anion Gap 3 L, BUN 28 H, Creatinine 1.20 H, Estim Creat Clear Calc 31.99, Est GFR (MDRD) Af Amer 56 L, Est GFR (MDRD) Non-Af 46 L, BUN/Creatinine Ratio 23.3 H, Glucose 103, Calcium 8.8 Micro: Microbiology 12/01/23 20:52 Stool Stool Occult Blood (MARLEE) - Final Occult Blood Positive Assessment & Plan Assessment/Plan (1) BALWINDER (acute kidney injury): (2) Hyperkalemia: (3) Metabolic acidosis: (4) Hypotension: PLAN: Plan This is a very pleasant 78-year-old female with past medical history significant for hypertension, osteoporosis, sleep apnea who was admitted to the hospital for BALWINDER, hypotension, acute debility. She was also discovered to have a worsening anemia. It seems that she has a mixed picture of anemia chronic disease and possible acute on chronic blood loss anemia. She should undergo an upper endoscopy to have a upper GI tract. She is at risk for angiodysplasias, peptic ulcer disease secondary to acute on chronic renal failure, upper GI bleed secondary to SSRIs, gastric antral vascular ectasia secondary to her age or Cooper's erosions secondary to hiatal hernia. She was explained alternatives, risk, benefits include not withstanding bleeding, infection, sepsis, perforation, need for emergent urgent . She have an ASA of 3. Charges/Coding Visit Charges Inpatient E&M: 94486 Init Hosp L3
[2023-12-02 20:00] VITALS: BP 152/67; PULSE 77; RESP 15; TEMP 36.8; O2SAT 96
[2023-12-03] VITALS (10 sets, daily range): BP systolic 89–141; BP diastolic 67–82; PULSE 78–92; RESP 16–18; TEMP 36.4–36.9; O2SAT 93–98
[2023-12-03] MEDS: Gabapentin 300 MG Capsule PO ×3 (05:36→20:39)
[2023-12-03 05:44] LABS: Absolute Lymphocyte Count 3.12 X10^3/uL (0.83-4.51); Absolute Neutrophil Count 2.9 X10^3/uL (2.0-7.7); Basophil# 0.04 X10^3/uL; Basophil% 0.6 % (0-1); Eosinophil# 0.23 X10^3/uL; Eosinophils% 3.4 % (0-5); Hemoglobin 9.7 g/dL (12.0-15.0); Lymphocyte # 3.12 X10^3/ul (0.83-4.51); Lymphocyte % 45.7 % (19-41); Mean Corp Hgb Conc 32.3 g/dL (32-36); Mean Corpuscular Hgb 31.6 pg (27.0-32.0); Mean Corpuscular Volume 97.7 fL (81-99); Monocyte# 0.55 X10^3/uL; Monocyte% 8.1 % (0-10); NRBC Flagged by Analyzer 0 % (0-5); Neutrophil # 2.86 X10^3/uL (2.7-7.7); Neutrophil % 41.8 % (47-70); Platelet Count 286 K/mm3 (150-450); RBC Distribution Width CV 12.9 % (11.6-14.6); RBC Distribution Width SD 45.8 fl (35.1-43.9); Red Blood Count 3.07 M/mm3 (4.2-5.4); White Blood Count 6.8 K/mm3 (4.4-11.0)
[2023-12-03 06:03] LABS: Anion Gap 4 (5-15); BUN 22 mg/dL (7-18); BUN/Creat Ratio 20.6 RATIO (10-20); Calcium,Total 9.2 mg/dL (8.5-10.1); Chloride 104 mmol/L (98-107); Creatinine, Serum 1.07 mg/dL (0.55-1.02); EST Glomerular Filtration Rate 53 mL/min (>60); Est Glom Filt Rate - Afr Amer 64 mL/min (>60); Estimated Creatinine Clearance 35.87 ml/min; Glucose 76 mg/dL (74-106); Potassium 4.8 mmol/L (3.5-5.1); Sodium Level 138 mmol/L (136-145)
--- NOTE | 2023-12-03 10:24 | NURSING ---
pt off floor for egd
--- NOTE | 2023-12-03 11:16 | PCM.PRE.AN2 ---
ASA Classification* ASA Classification ASA Classification: 3 Assessment & Plan Anesthesia* Anesthesia Assessment Anesthesia Assessment: Discussed sedation and/or anesthesia options, risks, benefits, and alternatives with patient/parents/legal guardian/POA. Questions invited. The patient/parents/legal guardian/POA seems to understand and agrees to proceed with anesthesia plan. Reviewed the physical assessment, medical history, allergy history and patient home medications list prior to surgery/procedure/anesthetic and documented any changes. Performed airway and anesthesia risk assessments. Anesthesia Type Anesthesia Type: MAC Anesthesia Focused Assessment* Temperature: 98.4 F Pulse Rate: 78 Blood Pressure: 141/68 Respiratory Rate: 16 Pulse Ox: 93 Airway Assessment Mouth opens: >3 cm Mallampati Score: II Focused Labs Anesthesia Preop lab: CBC WBC 6.8 K/mm3 (4.4-11.0) 12/03/23 05:06 RBC 3.07 M/mm3 (4.2-5.4) L 12/03/23 05:06 Hgb 9.7 g/dL (12.0-15.0) L 12/03/23 05:06 Hct 30.0 % (37-47) L 12/03/23 05:06 Plt Count 286 K/mm3 (150-450) 12/03/23 05:06 CHEMISTRY Potassium 4.8 mmol/L (3.5-5.1) 12/03/23 05:06 Sodium 138 mmol/L (136-145) 12/03/23 05:06 Magnesium 2.5 mg/dL (1.6-2.6) 11/29/23 13:01 Phosphorus 6.2 mg/dL (2.5-4.9) H 11/29/23 13:01 BUN 22 mg/dL (7-18) H 12/03/23 05:06 Creatinine 1.07 mg/dL (0.55-1.02) H 12/03/23 05:06 Glucose 76 mg/dL (74-106) 12/03/23 05:06 POC Glucose 115 mg/dL (74-106) H 11/30/23 10:42 TSH 1.32 uIU/mL (0.358-3.74) 06/24/18 15:39 COAG PT 14.1 SECONDS (11.7-14.9) 11/29/23 13:01 Pre-Assessment Diagnosis/Proposed Procedure Planned Operative Procedure(s): EGD Anesthesia History Anesthesia History - residential life director: Anesthesia History - residential life director Hx Hospitalization Any Problems With Anesthesia Cholinesterase deficiency You/Your Family Experience fever (hyperthermia) with Relationship Recent Exposure to Contagious Disease Does patient have nerve stimulator Patient instructed to have device shut off --Does patient have Pacemaker or ICD? When Was Last Pacemaker Check QUESTION #4 FULL TEXT: You/Your Family Experience fever (hyperthermia) with Anesthesia Last Oral Intake Last Oral intake: Last Oral Intake NPO since Meds taken in AM with sips of water? Meds patient instructed to take am of surgery PONV PONV - residential life director: PONV - residential life director Female HX of Motion Sickness HX of N/V After Surgery Non-Smoker Duration of Surgery greater than 60 minutes Number of Risk Factors PONV Score Height & Weight Height & Weight: Anesthesia: Height & Weight Height 5 ft 11/30/23 12:56 Weight: 65 kg 11/30/23 12:56 Body Mass Index (BMI) 28.0 11/29/23 16:00 Respiratory Assessment Respiratory Assessment - residential life director: Respiratory Tract Infection Hx - residential life director Hx Respiratory Tract Infection STOP Sleep Apnea STOP Sleep Apnea - residential life director: STOP Sleep Apnea - residential life director Hx Hypertension Yes 11/30/23 09:37 Hx Sleep Apnea Yes 11/29/23 16:00 CPAP Yes: NOT USED ON REGULAR 11/29/23 16:00 BASIS BIPAP No 11/29/23 16:00 Do you snore loudly (louder than talking or can be heard Do you often feel tired/ fatigued/ sleepy during daytime? Has anyone observed you stop breathing during sleep? STOP Results Positive 11/29/23 16:00 QUESTION #5 FULL TEXT : Do you snore loudly (louder than talking or can be heard through closed doors)? 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 Specify any problems Hx of Preganancy in last 3 No 11/29/23 16:00 Months Nurse Filling Out Transfusion JHEYANDRY 11/29/23 16:00 & Questions: Date: 11/29/23 11/29/23 16:00 Time: 16:26 11/29/23 16:00 Patient unable to answer at this time (ie. confused, unrespo /Reproduction History /Reproductive History - residential life director: /Reproductive Hx- residential life director Hx Now Gestational Age (in weeks): EDC: Hx Hx Para Hx Section SAB No 09/12/22 15:31 Active Medications Active Medications: Current Medications Generic Name Dose Route Start Last Admin Trade Name Freq PRN Reason Stop Dose Admin Acetaminophen 650 mg 11/29/23 16:19 Acetaminophen 325 Mg Tablet PO Q6H PRN PRN Pain 1-10 Or Fever>100.7 Amlodipine Besylate 10 mg 12/02/23 11:55 12/03/23 09:20 Amlodipine 10 Mg Tablet PO Not Given DAILY [facility] Protocol Atorvastatin Calcium 20 mg 11/30/23 10:00 12/03/23 09:20 Atorvastatin Calcium 20 Mg Tablet PO Not Given DAILY [facility] Cefdinir 300 mg 12/02/23 11:50 12/03/23 09:20 Cefdinir 300 Mg Capsule PO Not Given Q12 JOHANA Citalopram Hydrobromide 20 mg 11/30/23 10:00 12/03/23 09:20 Citalopram 20 Mg Tablet PO Not Given DAILY [facility] Gabapentin 300 mg 11/29/23 22:00 12/03/23 05:36 Gabapentin 300 Mg Capsule PO 300 mg TID JOHANA Administration Sodium Chloride 250 mls @ 15 mls/hr 11/29/23 17:34 IV .[id number] PRN Additional IVPB Infusion Sodium Chloride 250 mls @ 15 mls/hr 11/29/23 17:34 IV .[id number] PRN Saline Flush Pantoprazole Sodium 40 mg/ 110 mls @ 330 mls/hr 12/01/23 22:20 12/02/23 20:50 Sodium Chloride IV Infused Q12 JOHANA Infusion Melatonin 3 mg 11/29/23 16:19 Melatonin 3 Mg Tablet PO QHS PRN PRN INSOMNIA Ondansetron HCl 4 mg 11/29/23 16:19 Ondansetron 4 Mg/2 Ml Vial IV Q8H PRN PRN NAUSEA/VOMITING Sodium Chloride 10 - 40 ml 11/29/23 17:34 11/30/23 14:03 0.9% Saline Lock 10 Ml Syringe IV 10 ml UD PRN Administration SALINE FLUSH PFSH Medical History Osteoporosis CPAP (continuous positive airway pressure) dependence Sleep apnea De Quervain's disease (tenosynovitis) Stroke History of cancer of vulva Home Medications ?Medication ?Instructions ?Recorded ?Last Taken ?Type citalopram 20 mg tablet 20 mg PO DAILY DEPRESSION 04/02/17 11/29/23 History [id number] 8 mg-folic 400 1 ea PO DAILY SUPPLEMENT 04/02/17 11/29/23 History mcg-K 50 mcg-lutein 300 mcg tablet (Centrum Silver Women) simvastatin 40 mg tablet 40 mg PO DAILY CHOLESTEROL 04/02/17 11/29/23 History amlodipine 2.5 mg tablet 2.5 mg PO DAILY 06/10/21 11/29/23 History gabapentin 300 mg capsule 300 mg PO TID 06/10/21 11/29/23 History acetaminophen 500 mg tablet 1,000 mg PO BID PRN pain 11/29/23 11/29/23 History lisinopril 20 mg tablet 20 mg PO DAILY 11/29/23 11/29/23 History sulfamethoxazole 800 2 tab PO BID 11/29/23 11/29/23 History mg-trimethoprim 160 mg tablet Allergy/AdvReac Type Severity Reaction Status Date / Time acetaminophen (From Percocet) Allergy Severe Anaphylaxis Verified 11/29/23 12:18 oxycodone (From Percocet) Allergy Severe Anaphylaxis Verified 11/29/23 12:18 ibuprofen AdvReac Mild Nausea Verified 11/29/23 12:18 Family History Mother Heart disease Hypertension CVA (cerebral vascular accident) Diabetes Arthritis Father Cancer Alcoholism Sister Cancer Surgical History History of appendectomy History of total hip replacement Hx of hernia repair Hx of hysterectomy History of ankle surgery Social History household members: none current occupational status: employed current occupation: [employer] Smoking Status: Former smoker Tobacco: How many years used: 40 alcohol intake: never substance use type: does not use what type of physical activity do you participate in: walking and other frequency: 3-4 times per week seatbelt use: always do you feel safe at home: Yes additional social history: single Review of Systems (Anesthesia) ROS Narrative System reviewed and no additional complaints, except as documented.
[2023-12-03] MEDS: Pantoprazole Sodium 40 MG in 0.9% Normal Saline (100mL MB+) 100 ML 330 MG IV ×2 (12:00→20:39)
--- NOTE | 2023-12-03 12:00 | EGD_PTH ---
PATIENT: ALEXUS TATE LOC: [facility] U#:[id number] AGE/SX: 78/F ROOM: [facility] RE11/29/[address]: Dr. West Coleman MD : 1945 BED: 1 DIS: 12/04/2023 SPEC #: [id number] RECD: 12/03/23 13:35 STATUS: TAMEKA WALTON #: [id number] ZAINA: 12/03/23 12:[address]: Dru Smith DEPT: SURGICAL PATHOLOGY RECD BY: Megan Singh ENTERED: 12/03/23 14:02 SP TYPE: EGD BIOPSY OTHR DR: DO Dr. Martha Castro MD Dr. Nana Yaa Koram, MD Dr. Nicholas F Kotsonis, MD Dr. Paul Nielsen, MD Dr. Tyler Bender, Tissues: A - Duodenum, NOS C - Gastric mucous membrane Procedures: Surgery Specimen Level IV HEADER OPERATION: EGD, biopsy, electrohemastasis PRE-OP DIAGNOSIS: Anemia TISSUE SUBMITTED: A- Duodenal ulcer biopsy, B- Gastric antrum biopsy MICROSCOPIC DIAGNOSIS A. Duodenal ulcer, biopsy: Fragments of duodenal mucosa with mild congestion, hemorrhage and mild chronic inflammation. B. Gastric antrum, biopsy: Mild gastritis. See comment. 12/04/2023 COMMENT B. The results of immunohistochemistry for Helicobacter pylori will be reported separately ([id number]). MICROSCOPIC DESCRIPTION Slides are reviewed. B. The specimen shows fragments of gastric mucosa with chronic inflammatory cell infiltrates in the lamina propria consisting of lymphocytes and plasma cells, consistent with mild chronic gastritis. GROSS DESCRIPTION A. Received in fixative is one container labeled with the patient's name and designated Duodenal ulcer biopsy. The specimen consists of multiple irregular fragments of light barba soft tissue that in aggregate measure 1.5 x 0.2 x 0.1 cm. The specimen is totally submitted in one cassette. B, received in fixative is one container labeled with the patient's name and designated Gastric antrum biopsy. The specimen consists of two irregular fragments of light barba soft tissue that in aggregate measure 0.8 x 0.4 x 0.1 cm. The specimen is totally submitted in one cassette. 12/03/2023 TC:3 CPT:14976i6
--- NOTE | 2023-12-03 12:00 | IMM_PTH ---
PATIENT: ALEXUS TATE LOC: [facility] U#:[id number] AGE/SX: 78/F ROOM: [facility] RE11/29/[address]: Dr. West Coleman MD : 1945 BED: 1 DIS: 12/04/2023 SPEC #: [id number] RECD: 12/03/23 14:23 STATUS: TAMEKA REQ #: [id number] ZAINA: 12/03/23 12:[address]: Dru Smith DEPT: IMMUNOHISTOCHEMISTRY RECD BY: Jg Fernandes ENTERED: 12/03/23 14:24 SP TYPE: IMMUNO OTHR DR: DO Dr. Martha Castro MD Dr. Nana Yaa Koram, MD Dr. Nicholas F Kotsonis, MD Dr. Paul Nielsen, MD Dr. Tyler Bender, Tissues: B - Gastric mucous membrane Procedures: H Pylori (initial) PHYSICIAN & [place] [id number] SPECIMEN INFORMATION: Tissue Source: B- Gastric antrum biopsy Clinical Info: Frida Specimen Number: [id number] CPT code: 04032 METHODOLOGY: Deparaffinized sections of prefer/formalin-fixed tissue or PAP/DQ stained slides are incubated with monoclonal/polyclonal antibodies/oligonucleotide probes. Localization is made via biotin free immunoperoxidase method. Appropriate controls are performed and reacted as expected. Results on target cell population are indicated in the following table: RESULTS: ANTIBODY / CLONE RESULT Block B H Pylori (polyclonal) negative These tests were developed and their performance characteristics determined by [facility]. They may not have been cleared or approved by the U.S. Food and Drug Administration. The FDA has determined that such clearance or approval is not necessary. The above immunohistochemical/dualISH markers are ordered and reviewed by the Pathologist. INTERPRETATION: B. Gastric antrum, biopsy: Negative for Helicobacter pylori organisms. 12/04/2023
--- NOTE | 2023-12-03 12:34 | OP.CCLET_ITS ---
12/03/2023 Agus Malik MD [address] [id number] Re : Upper GI endoscopy procedure for Yadira Sheppard Dear Dr. Malik This procedure was performed on Sunday, December 03, 2023. My impressions and recommendations are as follows: Impressions : - LA Grade B erosive esophagitis with no bleeding. - Non-obstructing Schatzki ring. - Small hiatal hernia. - Oozing gastric ulcer with a visible vessel. Treated with a heater probe. - Chronic gastritis. Biopsied. - Non-bleeding duodenal ulcers with no stigmata of bleeding. Biopsied. Recommendations : - [facility]. - Resume regular diet today. - The patient is not currently taking aspirin or NSAID medications. - Await pathology results. - Repeat upper endoscopy in 4 months for surveillance. - Use Protonix (pantoprazole) 40 mg PO BID for 6 months. - Continue present medications. My findings are described in the full procedure note, which is enclosed. If I can be of further assistance, please feel free to contact me at . Sincerely, Dru Smith, 12/03/2023 12:33:35 PM This report has been signed electronically.
--- NOTE | 2023-12-03 12:34 | OP.EGD_ITS ---
Patient Name: Yadira Sheppard Procedure Date: 12/03/2023 11:54 AM Date of : 1945 Age: 78 Procedure: Upper GI endoscopy Indications: Iron deficiency anemia, Suspected upper gastrointestinal bleeding Providers: Dru Smith DO Referring MD: Jose De Jesus Dash Do Medicines: Monitored Anesthesia Care Patient Profile: This is a 78 year old female. Refer to note in patient chart for documentation of history and physical. Patient has symptoms. Complications: No immediate complications. Procedure: Pre-Anesthesia Assessment: - Prior to the procedure, a History and Physical was performed, and patient medications and allergies were reviewed. The patient is competent. The risks and benefits of the procedure and the sedation options and risks were discussed with the patient. All questions were answered and informed consent was obtained. Patient identification and proposed procedure were verified by the physician in the pre-procedure area. Mental Status Examination: alert and oriented. Airway Examination: normal oropharyngeal airway and neck mobility. Respiratory Examination: clear to auscultation. CV Examination: normal. Prophylactic Antibiotics: The patient does not require prophylactic antibiotics. Prior Anticoagulants: The patient has taken no anticoagulant or antiplatelet agents except for NSAID medication. ASA Grade Assessment: II - A patient with mild systemic disease. After reviewing the risks and benefits, the patient was deemed in satisfactory condition to undergo the procedure. The anesthesia plan was to use monitored anesthesia care (MAC). Immediately prior to administration of medications, the patient was re-assessed for adequacy to receive sedatives. The heart rate, respiratory rate, oxygen saturations, blood pressure, adequacy of pulmonary ventilation, and response to care were monitored throughout the procedure. The physical status of the patient was re-assessed after the procedure. After obtaining informed consent, the endoscope was passed under direct vision. Throughout the procedure, the patient's blood pressure, pulse, and oxygen saturations were monitored continuously. The gastroscope was introduced through the mouth, and advanced to the duodenal bulb. The upper GI endoscopy was accomplished without difficulty. The patient tolerated the procedure well. Scope In: 12:15:29 PM Scope Out: 12:24:16 PM Total Procedure Duration Time 0 hours 8 minutes 47 seconds Findings: LA Grade B (one or more mucosal breaks greater than 5 mm, not extending between the tops of two mucosal folds) esophagitis with no bleeding was found 39 to 40 cm from the incisors. A non-obstructing Schatzki ring was found at the gastroesophageal junction. A small hiatal hernia was present. One oozing cratered gastric ulcer with a visible vessel was found at the gastroesophageal junction. The lesion was 5 mm in largest dimension. Coagulation for hemostasis using heater probe was successful. Estimated blood loss was minimal. Localized moderate inflammation characterized by erythema and linear erosions was found in the gastric antrum. Biopsies were taken with a cold forceps for histology. Verification of patient identification for the specimen was done. Biopsies were taken with a cold forceps for Helicobacter pylori testing. Verification of patient identification for the specimen was done. Estimated blood loss was minimal. Many non-bleeding cratered duodenal ulcers with no stigmata of bleeding were found in the duodenal bulb, in the first portion of the duodenum and in the second portion of the duodenum. The largest lesion was 9 mm in largest dimension. Biopsies were taken with a cold forceps for histology. Verification of patient identification for the specimen was done. Estimated blood loss was minimal. Impression: - LA Grade B erosive esophagitis with no bleeding. - Non-obstructing Schatzki ring. - Small hiatal hernia. - Oozing gastric ulcer with a visible vessel. Treated with a heater probe. - Chronic gastritis. Biopsied. - Non-bleeding duodenal ulcers with no stigmata of bleeding. Biopsied. Recommendation: - Return patient to [facility] for [facility] care. - Resume regular diet today. - The patient is not currently taking aspirin or NSAID medications. - Await pathology results. - Repeat upper endoscopy in 4 months for surveillance. - Use Protonix (pantoprazole) 40 mg PO BID for 6 months. - Continue present medications. Procedure Code(s): --- Professional --- 11164, 59, Esophagogastroduodenoscopy, flexible, transoral; with control of bleeding, any method 32430, 51, Esophagogastroduodenoscopy, flexible, transoral; with biopsy, single or multiple CPT copyright 2021 [employer]. All rights reserved. The codes documented in this report are preliminary and upon assurance services manager health care review may be revised to meet current compliance requirements. Dru Smith DO 12/03/2023 12:33:35 PM This report has been signed electronically. Number of Addenda: 0 Note Initiated On: 12/03/2023 11:54 AM
--- NOTE | 2023-12-03 12:34 | PCM.POST.ANE ---
Anesthesia: Postop Eval I Current Vital Signs Temperature: 98.2 F Pulse Rate: 89 Blood Pressure: 95/68 Respiratory Rate: 16 Pulse Ox: 96 Oxygen Delivery Method: Room Air Assessment Airway patent: Yes Spontaneous unlabored respirations: Yes Mental status: Awake and Calm nausea: No Vomiting: No Anesthesia Complication: No Fluid Hydration Crystalloid volume administer (ml): 50 Total IV fluid infused: 50 Progress Note Anesthesia document: Postop Eval 1 completed: Yes
--- NOTE | 2023-12-03 13:16 | PCM.POSTANE2 ---
Anesthesia Postop Eval I Sum Postop Eval Completion status Anesthesia document: Postop Eval 1 completed: Yes Anesthesia Postop Eval I Summary Anesthesia Postop Eval I Summary: Anesthesia Postop Eval I: Assessment Summary Airway patent Yes 12/03/23 12:35 [email or web address] Spontaneous unlabored Yes 12/03/23 12:35 [email or web address] respirations Mental status Awake,Calm 12/03/23 12:35 [email or web address] nausea No 12/03/23 12:35 [email or web address] Vomiting No 12/03/23 12:35 [email or web address] Anesthesia Postop Eval I: Fluid Summary Crystalloid volume administer 50 12/03/23 12:35 [email or web address] (ml) Colloids volume administered ( ml) Blood Product volume administered (ml) Total IV fluid infused 50 12/03/23 12:35 [email or web address] Anesthesia Postop Eval I: Summary Notes Anesthesia Complication No 12/03/23 12:35 [email or web address] Anesthesia Complication Comment: Post-operative progress note Anesthesia: Postop Eval II Evaluation Mental status: Awake Pain Level: 0 nausea: No Vomiting: No
[2023-12-03 18:08] LABS: Cytoplasmic Ab (C-ANCA) <1:20 titer (Neg:<1:20); Perinuclear Ab (P-ANCA) 1:20 titer (Neg:<1:20)
--- NOTE | 2023-12-03 18:09 | PN.HOSP_ITS ---
Subjective Subjective Doing well, no issues overnight Objective Data Objective Data Vital Signs: Vital Signs Temp Pulse Resp BP Pulse Ox O2 Del Method 98.3 F 80 16 116/68 93 Room Air 12/03/23 13:15 12/03/23 13:15 12/03/23 13:15 12/03/23 13:15 12/03/23 13:15 12/03/23 15:04 Oxygen Delivery Method Room Air Weight: 143 lb 4.807 oz Body Mass Index (BMI) 28.0 Intake & Output: Intake and Output for Last 24 Hours 12/02/23 12/03/23 12/04/23 03:59 03:59 03:59 Intake Total 2881.67 / 2881.67 2970 / 2970 110 / 110 Output Total 3500 / 3500 4000 / 4000 1950 / 1950 Balance -618.33 / -618.33 -1030 / -1030 -1840 / -1840 Lab / Micro Data 12/04/23 05:38 12/04/23 05:38 Labs: Laboratory Results - last 24 hr 11/30/23 06:32: c-ANCA Antibody <1:20, Atypical p-ANCA <1:20, p-ANCA Antibody 1:20 H 12/03/23 05:06: WBC 6.8, RBC 3.07 L, Hgb 9.7 L, Hct 30.0 L, MCV 97.7, MCH 31.6, MCHC 32.3, RDW Std Deviation 45.8 H, RDW Coeff of Robbi 12.9, Plt Count 286, MPV 9.0, Immature Gran % (Auto) 0.400, Neut % (Auto) 41.8 L, Lymph % (Auto) 45.7 H, [place] % (Auto) 8.1, Eos % (Auto) 3.4, Baso % (Auto) 0.6, Absolute Neuts (auto) 2.9, Absolute Lymphs (auto) 3.12, Nucleated RBC % 0, Sodium 138, Potassium 4.8, Chloride 104, Carbon Dioxide 29.0, Anion Gap 4 L, BUN 22 H, Creatinine 1.07 H, Estim Creat Clear Calc 35.87, Est GFR (MDRD) Af Amer 64, Est GFR (MDRD) Non-Af 53 L, BUN/Creatinine Ratio 20.6 H, Glucose 76, Calcium 9.2 Micro: Microbiology 12/01/23 20:52 Stool Stool Occult Blood (MARLEE) - Final Occult Blood Positive 11/29/23 13:01 Blood Culture (Wb) - Anticubital Left Blood Culture - Preliminary No growth in 48 hours. 11/29/23 13:01 Urine, Catheterized Urine Culture - Final Culture exhibits no growth. 11/29/23 13:01 Urine, Clean Catch Urine Culture - Final Culture exhibits no growth. 11/29/23 13:01 Mucosa - Nose SARS-CoV-2, Influenza & RSV (PCR) - Final Radiography Diagnostic Testing: Radiology Impression Echocardiogram 12/01/23 07:31 Interpretation Summary The left ventricular ejection fraction is 75 %. Left ventricular systolic function is hyperdynamic. Normal LV size. Stage 1 diastolic dysfunction. Valsalva LV gradient 117 mmHg. Systolic anterior motion of the mitral valve. Ordering Physician: Karla Cruz Referring Physician: Jose De Jesus Dash Performed By: Adilene Schreiber, BENITA, RVT Physical Exam Narrative General: Alert, Oriented x3, Cooperative, No apparent distress HEENT: Atraumatic, PERRLA, EOMI, Normocephalic Oral: Moist Mucosa Neck: Supple, No JVD Lungs: Diminished, Normal air movement, No rhonchi, No wheeze, No rales Cardiovascular: Regular rate, Regular Rhythm, Normal S1, Normal S2, No murmurs Abdomen: Soft, Non Tender, Non-Distended, No Hepato-splenomegaly Extremities: No edema, Capillary Refill Less than 3 Seconds Skin: No rashes, No breakdown Musculoskeletal: No Tenderness to Palpation of Joints or Extremities Neurological: No focal neurological deficits, Motor Exam 5/5 strength throughout, Sensory exam intact to light touch and pain Psych/Mental Status: Normal Affect, Appropriate Assessment & Plan Assessment/Plan (1) BALWINDER (acute kidney injury): (2) Debility: PLAN: Plan #BALWINDER with hyperkalemia * Cr was 6.02 on admission. Patient was hypotensive on admission,a nd concern is the BALWINDER may ahve been due to pre renal causes. * Cr is down to 1.2 today. * FeNa was 1%, indicating either a pre renal or intrinsic kidney condition. * renal USG showed no evidence of hydronephrosis on the right or left kidney, and no abnormality in the bladder. * insert Carpenter catheter * nephrology on board. * monitor urine output. * BP meds on hold. Hold any and all nephrotoxic meds * of note, it seems patient had been on bactrim also, which could contribute to BALWINDER. It has now been discontinued. 12/03/2023: Renal function is back to normal and at her baseline autoimmune studies are still pending #Nonanion gap metabolic acidosis * Nephrology on board. She received bicarb drip during this admission * has now resolved. * Management as per nephrology. Bicarb today is 28. * will dc bicarb drip 12/03/2023: Acidosis has resolved #Cystitis * urinalysis showed 2+ bacteria. * received IV ceftriaxone * Urine culture is negative. * will give PO cefdinir 300mg bid x 5 days out of an abundance of precaution. #Debility and weakness * PT/OT no board. Fall precautions #Anemia * Hb today is 9. * Iron profile showed iron being low at 40, ferritin level of 433 and iron sats of 17.6. TIBC is 227. * Iron saturation is low, though ferritin is high. Ferritin is an acute phase reactant, so the acute illness may also be causing the ferritin to be elevated. * Stool for occult blood is positive. Hb is 9. will consult gastroenterology. * Will monitor. Baseline hemoglobin appears to be around 12.6 from May 2022. 12/03/2023: EGD today is pending, hemoglobin is stable at 9.7 #Elevated troponin * initial troponin was 241, and trended down to 215. * However, this may have been due to decreased renal clearance due to the BALWINDER * she had no chest pain. * 2D echo ordered and per cardiology, showed hyperdynamic left ventricle. Cardiology was concerned about possible left ventricular outlet obstruction but would want repeat images done tomorrow to evaluate again. 12/03/2023: Repeat echo with an EF of 70% and stage I diastolic dysfunction and a Valsalva gradient of 117 mmHg #Hypertension: * on lisinopril and amlodipine. DC lisinopril in light of severe BALWINDER. amlodipine increased to 10mg daily #Depression and anxiety: on citalopram. #Hyperlipidemia: on statin #Peripheral neuropathy: on gabapentin DVT: SCDs Charges/Coding Visit Charges Inpatient E&M: 54937 Subs Hosp L2
[2023-12-03] MEDS: 0.9% Saline Lock 10 ML Syringe IV (20:38)
[2023-12-03] MEDS: Cefdinir 300 MG Capsule PO (20:39)
[2023-12-03] MEDS: Acetaminophen 325 MG Tablet 650 MG PO (23:47)
[2023-12-04 03:25] VITALS: BP 107/73; PULSE 76; RESP 16; TEMP 36.6; O2SAT 94
[2023-12-04] MEDS: Gabapentin 300 MG Capsule PO (05:06)
[2023-12-04 05:49] LABS: Absolute Lymphocyte Count 3.32 X10^3/uL (0.83-4.51); Absolute Neutrophil Count 2.5 X10^3/uL (2.0-7.7); Basophil# 0.03 X10^3/uL; Basophil% 0.4 % (0-1); Eosinophil# 0.28 X10^3/uL; Eosinophils% 4.1 % (0-5); Hematocrit 29.9 % (37-47); Hemoglobin 9.6 g/dL (12.0-15.0); Lymphocyte # 3.32 X10^3/ul (0.83-4.51); Lymphocyte % 48.2 % (19-41); Mean Corp Hgb Conc 32.1 g/dL (32-36); Mean Corpuscular Hgb 31.6 pg (27.0-32.0); Mean Corpuscular Volume 98.4 fL (81-99); Mean Platelet Vol. 8.7 fl (6.2-12.0); Monocyte# 0.71 X10^3/uL; Monocyte% 10.3 % (0-10); NRBC Flagged by Analyzer 0 % (0-5); Neutrophil # 2.53 X10^3/uL (2.7-7.7); Neutrophil % 36.7 % (47-70); Platelet Count 275 K/mm3 (150-450); RBC Distribution Width CV 12.8 % (11.6-14.6); RBC Distribution Width SD 46.3 fl (35.1-43.9); Red Blood Count 3.04 M/mm3 (4.2-5.4); White Blood Count 6.9 K/mm3 (4.4-11.0)
[2023-12-04 06:13] LABS: Anion Gap 4 (5-15); BUN 24 mg/dL (7-18); BUN/Creat Ratio 23.5 RATIO (10-20); Calcium,Total 9.5 mg/dL (8.5-10.1); Chloride 104 mmol/L (98-107); Creatinine, Serum 1.02 mg/dL (0.55-1.02); EST Glomerular Filtration Rate 56 mL/min (>60); Est Glom Filt Rate - Afr Amer 67 mL/min (>60); Estimated Creatinine Clearance 37.63 ml/min; Glucose 87 mg/dL (74-106); Potassium 4.9 mmol/L (3.5-5.1); Sodium Level 137 mmol/L (136-145)
[2023-12-04 09:25] VITALS: BP 98/66; PULSE 81; RESP 18; TEMP 36.7; O2SAT 98
[2023-12-04] MEDS: Cefdinir 300 MG Capsule PO (10:43)
[2023-12-04] MEDS: Pantoprazole Sodium 40 MG Tablet PO (10:43)
[2023-12-04] MEDS: Atorvastatin Calcium 20 MG Tablet PO (10:43)
[2023-12-04] MEDS: Citalopram 20 MG Tablet PO (10:43)
--- NOTE | 2023-12-04 11:12 | DCINST_ITS ---
Discharge Instructions Diet Discharge Diet: Low fat / Low cholesterol Activity Discharge Activity: Return to Normal Activity Dressing / Incision Call your doctor if you observe: Fever of 101 or Higher, Shortness of breath, Dizziness, Fainting spells, Swelling in the ankles, Chest pain and Increased palpitations (irregular heartbeat) Follow Up Care Test Results: Test results from this visit will be discussed in further detail at your follow- up appointment, if applicable. Discharge Plan Admission Admit Date/Time: 11/29/23 15:00 Attending Provider: West Coleman Primary Care Provider: Agus Malik Consulting Providers: Errol Bradshaw; Martha Chamberlain; Karla Cruz Discharge Orders/Prescriptions Prescriptions: New pantoprazole 40 mg Tablet,Delayed Release (Dr/Ec) 40 mg PO BID 30 Days Qty: 60 5RF Continued gabapentin 300 mg capsule 300 mg PO TID amlodipine 2.5 mg tablet 2.5 mg PO DAILY Patient Comments: PT STATES SHE CHECKS HER BP AND IF ITS OVER 140, PT WILL TAKE MED. simvastatin 40 MG tablet 40 mg PO DAILY Patient Comments: citalopram 20 MG tablet 20 mg PO DAILY Patient Comments: Centrum Silver Women 1 EACH tablet 1 ea PO DAILY lisinopril 20 mg tablet 20 mg PO DAILY Patient Comments: PT UNSURE THAT MED WAS INCREASED FROM 5MG TO 20MG. 20MG FILLED ON 09/28/23 FOR 90DS. acetaminophen 500 mg tablet 1,000 mg PO BID PRN (Reason: pain) Discontinued sulfamethoxazole-trimethoprim 800-160 mg tablet 2 tab PO BID Rx Instructions: START DATE 11/15/23, END DATE 11/29/23. PT HAS 8 TABS LEFT IN BOTTLE. Referrals / Follow Up: Agus Malik MD [Primary Care Provider] - Within 1 Week FriendDru DO [Med Staff - Active Staff] - Within 3 Months Disposition Disposition (needs filled in before D/C Order can be placed): Home, Self Care
[2023-12-04 11:17] VITALS: BP 98/66; PULSE 81; RESP 18; TEMP 36.7; O2SAT 98
--- NOTE | 2023-12-04 11:58 | CASEMGMT ---
Patient has order for discharge. RN CM in to discuss needs at discharge. Patient denies needs or help at discharge. Patient had no further questions or concerns.
--- NOTE | 2023-12-04 12:37 | PHA.DC.MC.R ---
Pharmacy [facility] has performed discharge medication reconciliation and counseling for this patient. 1. PANTOPRAZOLE 40MG PO BID The patient's discharge medication list was reviewed for discrepancies and discrepancies were resolved. The patient was counseled on the following discharge medications and changes in medications for homegoing were reviewed. The Reason for Use, instructions for use, and potential side effects were reviewed for all new medications. The patient's questions regarding all of their medications were answered. The patient was able to verbally demonstrate an understanding of their discharge medications. Medications at Discharge Home Medications citalopram 20 mg tablet 20 mg PO DAILY DEPRESSION 04/02/17 [id number] 8 mg-folic 400 mcg-K 50 mcg-lutein 300 mcg tablet (Centrum Silver Women) 1 ea PO DAILY SUPPLEMENT 04/02/17 simvastatin 40 mg tablet 40 mg PO DAILY CHOLESTEROL 04/02/17 amlodipine 2.5 mg tablet 2.5 mg PO DAILY 06/10/21 gabapentin 300 mg capsule 300 mg PO TID 06/10/21 acetaminophen 500 mg tablet 1,000 mg PO BID PRN pain 11/29/23 lisinopril 20 mg tablet 20 mg PO DAILY 11/29/23 pantoprazole 40 mg tablet,delayed release 40 mg PO BID 30 days #60 tabs 12/04/23
--- NOTE | 2023-12-04 12:59 | DS.PCM_ITS ---
Providers Date of Admission: 11/29/23 Primary Care Physician: Dr. Agus Malik MD Consultations 11/30/23 07:55 Consult: Nephrology Routine Consulting Provider: Martha Chamberlain Reason for Consult: BALWINDER with hyperkalemia EMERGENT Consult: No Notified: Yes Date Notified: 11/30/23 Time Notified: 07:58 Method of Notification: Text 12/02/23 13:45 Consult: Gastroenterology Routine Consulting Provider: [facility] Reason for Consult: acute iron defiency anemia EMERGENT Consult: No Notified: Yes Date Notified: 12/02/23 Time Notified: 13:45 Method of Notification: Text Reason For Visit: SEVERE BALWINDER W/ CONCERN FOR SEPSIS Diagnosis Discharge Diagnosis (1) BALWINDER (acute kidney injury): Status: Acute Code(s): N17.9 - Acute kidney failure, unspecified (2) Debility: Status: Acute Code(s): R53.81 - Other malaise Medications at Discharge Home Medications citalopram 20 mg tablet 20 mg PO DAILY DEPRESSION 04/02/17 [id number] 8 mg-folic 400 mcg-K 50 mcg-lutein 300 mcg tablet (Centrum Silver Women) 1 ea PO DAILY SUPPLEMENT 04/02/17 simvastatin 40 mg tablet 40 mg PO DAILY CHOLESTEROL 04/02/17 amlodipine 2.5 mg tablet 2.5 mg PO DAILY 06/10/21 gabapentin 300 mg capsule 300 mg PO TID 06/10/21 acetaminophen 500 mg tablet 1,000 mg PO BID PRN pain 11/29/23 lisinopril 20 mg tablet 20 mg PO DAILY 11/29/23 pantoprazole 40 mg tablet,delayed release 40 mg PO BID 30 days #60 tabs 12/04/23 Hospital Course Operations None Procedures 2-D Echocardiogram Summary of Care Provided Minutes Spent on Discharge: 37 Hospital Course: Per HPI: ALEXUS TATE, is a 78 F who presented to [facility] ED on 11/29/2023 with several concerns including worsening weakness, mild confusion and hypotension. Patient lives at home with her daughter and daughter was present at bedside in the ED. 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 She last did this job about 1 week ago. Since then she has developed worsening fatigue and weakness along with decreased appetite, slight taste alteration and mild mental fogginess. Daughter noted that patient was more fatigued than her normal and was shaky appearing earlier today. They checked her blood pressure at home and it was low, so they brought her in for further evaluation. On arrival her blood pressure was noted to be in the 70s over 40s. However her heart rate was normal in the 70s and she was afebrile and breathing comfortably on room air. She was given a fluid bolus with good improvement in her blood pressure to the 110s systolic. She appeared to have some improved energy after the bolus as well. She was found to have a creatinine of 6.02, up from her baseline of 0.7. She notably had a creatinine of 0.7 on last check on 11/08. She did note that she has had minimal urine output over the past several days. She denied any dysuria, urinary frequency or urgency. She denied any abdominal pain or discomfort. Given her severe BALWINDER and acute debility, hospitalist was contacted for admission. I saw the patient at bedside in the ED, daughter was present. Patient was fatigued appearing and somewhat dry appearing on exam but was otherwise sitting up comfortably in bed, making appropriate eye contact and answering questions appropriately for me. She currently denied any acute pain or discomfort. She denied any fevers or chills at home. Notably, patient was seen in the ED here on 11/12 for an abscess with drainage in the left posterior shoulder area. I&D was done at that time and a large amount of purulent drainage was expressed. Wound was irrigated with copious amounts of normal saline and wound was left open. Patient denies any pain or discomfort in that area since shortly after that ED visit. On my exam, the area appears very well-healed with no erythema, swelling or tenderness to palpation. No other acute concerns at this time. Will be admitted for further management. Hospital Course: #BALWINDER with hyperkalemia * Cr was 6.02 on admission. Patient was hypotensive on admission,a nd concern is the BALWINDER may ahve been due to pre renal causes. * Cr is down to 1.2 today. * FeNa was 1%, indicating either a pre renal or intrinsic kidney condition. * renal USG showed no evidence of hydronephrosis on the right or left kidney, and no abnormality in the bladder. * insert Carpenter catheter * nephrology on board. * monitor urine output. * BP meds on hold. Hold any and all nephrotoxic meds * of note, it seems patient had been on bactrim also, which could contribute to BALWINDER. It has now been discontinued. 12/03/2023: Renal function is back to normal and at her baseline autoimmune studies are still pending 12/04/2023: Her GOLDIE is positive which is not surprising in a 78-year-old female. Her p-ANCA is barely positive so I do recommend outpatient follow-up with her PCP with appropriate referrals as indicated. No hyperkalemia today on discharge and her renal function today is 1.02. I discussed with her the plan for discharge she expressed understanding of the risk and benefits of going home and would like to go home today. #Nonanion gap metabolic acidosis * Nephrology on board. She received bicarb drip during this admission * has now resolved. * Management as per nephrology. Bicarb today is 28. * will dc bicarb drip 12/03/2023: Acidosis has resolved #Cystitis * urinalysis showed 2+ bacteria. * received IV ceftriaxone * Urine culture is negative. * will give PO cefdinir 300mg bid x 5 days out of an abundance of precaution. 12/04/2023: Will discharge without antibiotics as cultures were negative #Debility and weakness * PT/OT no board. Fall precautions #Anemia * Hb today is 9. * Iron profile showed iron being low at 40, ferritin level of 433 and iron sats of 17.6. TIBC is 227. * Iron saturation is low, though ferritin is high. Ferritin is an acute phase reactant, so the acute illness may also be causing the ferritin to be elevated. * Stool for occult blood is positive. Hb is 9. will consult gastroenterology. * Will monitor. Baseline hemoglobin appears to be around 12.6 from May 2022. 12/03/2023: EGD today is pending, hemoglobin is stable at 9.7 12/04/2023: EGD with gastritis and a visible vessel that was treated with oozing yesterday as well as grade B erosive esophagitis and chronic gastritis. She also had nonbleeding duodenal ulcers with no stigmata of bleeding, biopsies are pending she will need to follow-up with gastroenterology as an outpatient. Repeat scope in 4 months and will plan on twice daily PPI for 6 months #Elevated troponin * initial troponin was 241, and trended down to 215. * However, this may have been due to decreased renal clearance due to the BALWINDER * she had no chest pain. * 2D echo ordered and per cardiology, showed hyperdynamic left ventricle. Cardiology was concerned about possible left ventricular outlet obstruction but would want repeat images done tomorrow to evaluate again. 12/03/2023: Repeat echo with an EF of 70% and stage I diastolic dysfunction and a Valsalva gradient of 117 mmHg #Hypertension: * on lisinopril and amlodipine. DC lisinopril in light of severe BALWINDER. amlodipine increased to 10mg daily 12/04/2023: Given the rapidity of improvement in her renal function we will restart lisinopril on discharge, I discussed with her the need to follow-up with her PCP on discharge and to obtain lab work to monitor her renal function #Depression and anxiety: on citalopram. #Hyperlipidemia: on statin #Peripheral neuropathy: on gabapentin Physical Exam Narrative General: Alert, Oriented x3, Cooperative, No apparent distress HEENT: Atraumatic, PERRLA, EOMI, Normocephalic Oral: Moist Mucosa Neck: Supple, No JVD Lungs: Diminished, Normal air movement, No rhonchi, No wheeze, No rales Cardiovascular: Regular rate, Regular Rhythm, Normal S1, Normal S2, No murmurs Abdomen: Soft, Non Tender, Non-Distended, No Hepato-splenomegaly Extremities: No edema, Capillary Refill Less than 3 Seconds Skin: No rashes, No breakdown Musculoskeletal: No Tenderness to Palpation of Joints or Extremities Neurological: No focal neurological deficits, Motor Exam 5/5 strength throughout, Sensory exam intact to light touch and pain Psych/Mental Status: Normal Affect, Appropriate Weight / BMI Weight Weight: 143 lb 4.807 oz Body Mass Index (BMI) 28.0 ABG / Lab / Microbiology Data 12/04/23 05:38 12/04/23 05:38 Laboratory: Laboratory Results - last 24 hr 11/30/23 06:32: c-ANCA Antibody <1:20, Atypical p-ANCA <1:20, p-ANCA Antibody 1:20 H 12/04/23 05:38: WBC 6.9, RBC 3.04 L, Hgb 9.6 L, Hct 29.9 L, MCV 98.4, MCH 31.6, MCHC 32.1, RDW Std Deviation 46.3 H, RDW Coeff of Robbi 12.8, Plt Count 275, MPV 8.7, Immature Gran % (Auto) 0.300, Neut % (Auto) 36.7 L, Lymph % (Auto) 48.2 H, [place] % (Auto) 10.3 H, Eos % (Auto) 4.1, Baso % (Auto) 0.4, Absolute Neuts (auto) 2.5, Absolute Lymphs (auto) 3.32, Nucleated RBC % 0, Sodium 137, Potassium 4.9, Chloride 104, Carbon Dioxide 29.0, Anion Gap 4 L, BUN 24 H, Creatinine 1.02, Estim Creat Clear Calc 37.63, Est GFR (MDRD) Af Amer 67, Est GFR (MDRD) Non-Af 56 L, BUN/Creatinine Ratio 23.5 H, Glucose 87, Calcium 9.5 Microbiology: Microbiology 12/01/23 20:52 Stool Stool Occult Blood (MARLEE) - Final Occult Blood Positive 11/29/23 13:01 Blood Culture (Wb) - Anticubital Left Blood Culture - Preliminary No growth in 48 hours. 11/29/23 13:01 Urine, Catheterized Urine Culture - Final Culture exhibits no growth. 11/29/23 13:01 Urine, Clean Catch Urine Culture - Final Culture exhibits no growth. 11/29/23 13:01 Mucosa - Nose SARS-CoV-2, Influenza & RSV (PCR) - Final D/C Instructions Discharge Diet: Low fat / Low cholesterol Call your doctor if you observe: Fever of 101 or Higher, Shortness of breath, Dizziness, Fainting spells, Swelling in the ankles, Chest pain and Increased palpitations (irregular heartbeat) Meaningful Use Info Meaningful Use Meaningful Use Diagnoses (Choose all that apply): None applicable Ischemic Stroke Statin Dosing Therapy Reference: STATIN DOSE THERAPY REFERENCE: * Patients > 75 years receive moderate or high dose statin therapy. * Patients 75 years or YOUNGER should receive HIGH intensity statin dose unless contraindicated. You will be required to document reason for non-treatment if statin daily dose does not meet guidelines. HIGH DOSE STATIN THERAPY DAILY Atorvastatin > than or = to 40 mg Rosuvastatin > than or = to 20 mg Amlodipine + Atorvastatin > than or = to 2.5/40 mg Ezetimibe + Simvastatin 10/80 mg Simvastatin 80mg Discharge Plan Admission Admit Date/Time: 11/29/23 15:00 Attending Provider: West Coleman Primary Care Provider: Agus Malik Consulting Providers: Errol Bradshaw; Martha Chamberlain; Karla Cruz Discharge Orders/Prescriptions Prescriptions: New pantoprazole 40 mg Tablet,Delayed Release (Dr/Ec) 40 mg PO BID 30 Days Qty: 60 5RF Continued gabapentin 300 mg capsule 300 mg PO TID amlodipine 2.5 mg tablet 2.5 mg PO DAILY Patient Comments: PT STATES SHE CHECKS HER BP AND IF ITS OVER 140, PT WILL TAKE MED. simvastatin 40 MG tablet 40 mg PO DAILY Patient Comments: citalopram 20 MG tablet 20 mg PO DAILY Patient Comments: Centrum Silver Women 1 EACH tablet 1 ea PO DAILY lisinopril 20 mg tablet 20 mg PO DAILY Patient Comments: PT UNSURE THAT MED WAS INCREASED FROM 5MG TO 20MG. 20MG FILLED ON 09/28/23 FOR 90DS. acetaminophen 500 mg tablet 1,000 mg PO BID PRN (Reason: pain) Discontinued sulfamethoxazole-trimethoprim 800-160 mg tablet 2 tab PO BID Rx Instructions: START DATE 11/15/23, END DATE 11/29/23. PT HAS 8 TABS LEFT IN BOTTLE. Referrals / Follow Up: Agus Malik MD [Primary Care Provider] - Within 1 Week Friend,DO Dru [Med Staff - Active Staff] - Within 3 Months Disposition Disposition (needs filled in before D/C Order can be placed): Home, Self Care Charges/Coding Visit Charges Inpatient E&M: 48891 Disch Hosp >30min
== END 2023-12-04 12:51 | disposition home or self-care (01) | DRG 981 ==
LOC: ED 14:59 → PCU 15:13
PROVIDERS: Internal Medicine Gastroenterology; Nurse Practitioner Adult Health; Student in an Organized Health Care Education/Training Program; Admitting Provider Hospitalist; Emergency Provider Emergency Medicine; PCP Family Medicine; Referring Provider Emergency Medicine; Visit Provider Family Medicine
PROC: 0DJ08ZZ Inspection of Upper Intestinal Tract, Via Natural or Artificial Opening Endoscopic (ICD-10-PCS; CPT 43235; principal; 2023-12-03 11:55)
DX: N17.9 Acute kidney failure, unspecified (principal); K25.4 Chronic or unspecified gastric ulcer with hemorrhage; E87.20 Acidosis, unspecified; E87.1 Hypo-osmolality and hyponatremia; K22.2 Esophageal obstruction; K26.9 Duodenal ulcer, unspecified as acute or chronic, without hemorrhage or perforation; I95.9 Hypotension, unspecified; I10 Essential (primary) hypertension; D64.9 Anemia, unspecified; E78.5 Hyperlipidemia, unspecified; E87.5 Hyperkalemia; G62.9 Polyneuropathy, unspecified; K29.50 Unspecified chronic gastritis without bleeding; K44.9 Diaphragmatic hernia without obstruction or gangrene; K20.80 Other esophagitis without bleeding; G47.30 Sleep apnea, unspecified; F41.8 Other specified anxiety disorders; R53.81 Other malaise; Z90.710 Acquired absence of both cervix and uterus; Z87.891 Personal history of nicotine dependence; Z99.89 Dependence on other enabling machines and devices; Z23 Encounter for immunization; Z86.73 Personal history of transient ischemic attack (TIA), and cerebral infarction without residual deficits; Z90.49 Acquired absence of other specified parts of digestive tract; Z96.649 Presence of unspecified artificial hip joint; R79.89 Other specified abnormal findings of blood chemistry; Z79.899 Other long term (current) drug therapy; N30.90 Cystitis, unspecified without hematuria; R53.1 Weakness
CPT/HCPCS: 36415; 70450; 71046; 76770; 80048; 80053; 81001; 82274; 82570; 82607; 82728; 82746; 82803; 82962; 83540; 83550; 83605; 83735; 84100; 84132; 84300; 84484; 85025; 85027; 85610; 85730; 86037; 86038; 86160; 86225; 86235; 87040; 87086; 87631; 88305; 88342; 90662; 93005; 93306; 94668; 97161; 97166; 99285; J7030; A4216; J0612; J2405

== ENCOUNTER → 2023-12-05 | Outpatient (CLI) | payer MEDICARE, SELFPAY ==
[2023-12-05 17:34] LABS: Absolute Lymphocyte Count 2.21 X10^3/uL (0.83-4.51); Absolute Neutrophil Count 7.1 X10^3/uL (2.0-7.7); Basophil# 0.06 X10^3/uL; Basophil% 0.6 % (0-1); Eosinophil# 0.08 X10^3/uL; Eosinophils% 0.8 % (0-5); Hemoglobin 10.6 g/dL (12.0-15.0); Lymphocyte # 2.21 X10^3/ul (0.83-4.51); Lymphocyte % 21.5 % (19-41); Mean Corp Hgb Conc 33.1 g/dL (32-36); Mean Corpuscular Volume 96.7 fL (81-99); Monocyte# 0.68 X10^3/uL; Monocyte% 6.6 % (0-10); NRBC Flagged by Analyzer 0 % (0-5); Neutrophil # 7.09 X10^3/uL (2.7-7.7); Neutrophil % 69.1 % (47-70); Platelet Count 361 K/mm3 (150-450); RBC Distribution Width CV 12.8 % (11.6-14.6); Red Blood Count 3.31 M/mm3 (4.2-5.4); White Blood Count 10.3 K/mm3 (4.4-11.0)
[2023-12-05 17:53] LABS: Anion Gap 9 (5-15); BUN 35 mg/dL (7-18); BUN/Creat Ratio 17.5 RATIO (10-20); Calcium,Total 9.8 mg/dL (8.5-10.1); Chloride 102 mmol/L (98-107); EST Glomerular Filtration Rate 26 mL/min (>60); Est Glom Filt Rate - Afr Amer 31 mL/min (>60); Glucose 96 mg/dL (74-106); Potassium 5.1 mmol/L (3.5-5.1); Sodium Level 136 mmol/L (136-145)
== END | disposition home or self-care (01) ==
LOC: MFPLAB 16:49
PROVIDERS: PCP Family Medicine; Visit Provider Family Medicine
DX: K25.9 Gastric ulcer, unspecified as acute or chronic, without hemorrhage or perforation (principal); N17.9 Acute kidney failure, unspecified
CPT/HCPCS: 36415; 80048; 85025

== ENCOUNTER → 2023-12-06 | Outpatient (CLI) | payer MEDICARE, SELFPAY | END | disposition home or self-care (01) | PROVIDERS: PCP Family Medicine; Referring Provider Family Medicine; Visit Provider Family Medicine | DX: N39.0 Urinary tract infection, site not specified (principal) | CPT/HCPCS: 87086; 87088 ==

== ENCOUNTER → 2024-03-05 | Outpatient (CLI) | payer MEDICARE, SELFPAY ==
[2024-03-05 18:55] LABS: Anion Gap 6 (5-15); BUN 33 mg/dL (7-18); BUN/Creat Ratio 26.8 RATIO (10-20); Calcium,Total 9.3 mg/dL (8.5-10.1); Chloride 108 mmol/L (98-107); Creatinine, Serum 1.23 mg/dL (0.55-1.02); EST Glomerular Filtration Rate 45 mL/min (>60); Est Glom Filt Rate - Afr Amer 54 mL/min (>60); Glucose 110 mg/dL (74-106); Potassium 4.1 mmol/L (3.5-5.1); Sodium Level 139 mmol/L (136-145)
== END | disposition home or self-care (01) ==
LOC: MFPLAB 16:57
PROVIDERS: PCP Family Medicine; Referring Provider Family Medicine; Visit Provider Family Medicine
DX: N17.9 Acute kidney failure, unspecified (principal)
CPT/HCPCS: 36415; 80048

== ENCOUNTER → 2024-06-06 | Outpatient (CLI) | payer MEDICARE, SELFPAY ==
--- NOTE | 2024-06-06 14:56 | RAD_ITS ---
PROCEDURE: SHOULDER MIN 2 VIEWS 06/06/2024 REASON FOR EXAM: SHOULDER PAIN TECHNIQUE: Four views of the right shoulder COMPARISON: None available FINDINGS: No fracture or dislocation. Exuberant bone formation at the humeral greater and lesser tubercles which may represent calcific tendinosis, rotator cuff tendinopathy. The acromioclavicular joint appears within limits. The visualized right lung appears unremarkable. RAD/Shoulder min 2 Views IMPRESSION: Exuberant bone formation at the humeral greater and lesser tubercles which may represent calcific tendinosis, rotator cuff tendinopathy. Reading Location: [id number]
[2024-06-06 18:23] LABS: Anion Gap 12 (5-15); BUN 14 mg/dL (4-19); BUN/Creat Ratio 17.6 RATIO (10-20); Calcium,Total 9.6 mg/dL (7.6-11.0); Carbon Dioxide 26.9 mmol/L (21.0-32.0); Chloride 102 mmol/L (98-108); Creatinine, Serum 0.79 mg/dL (0.70-1.20); EST Glomerular Filtration Rate 77 (>60); Glucose 66 mg/dL (70-99); Sodium Level 140 mmol/L (133-145)
== END | disposition home or self-care (01) ==
PROVIDERS: PCP Family Medicine; Referring Provider Family Medicine; Visit Provider Family Medicine
DX: N17.9 Acute kidney failure, unspecified (principal); M25.511 Pain in right shoulder
CPT/HCPCS: 36415; 73030; 80048

== ENCOUNTER 2024-06-26 18:00 | Outpatient (RCR) | payer MEDICARE, SELFPAY ==
--- NOTE | 2024-06-18 16:00 | HP.PTEVAL ---
Patient's Visit Information Visit Information Visit Information: ALEXUS TATE is a 79 year old F referred to Physical Therapy by Dr. Agus Malik MD with a diagnosis of R shoulder pain. Date of Evaluation: 06/18/24 Physical Therapist: Pito Solorzano, PT, ATC Visit Plan Frequency: 1x/Week Duration: 1-2weeks Plan: Issue and instruct pt on HEP of R shoulder rotator cuff strengthening and scap stab ex's Subjective Subjective: Pt reports she has had R shoulder pain for 3 weeks. 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 Pt is R hand dominant. Pt reports she did have a CVA in 2007 which really effected her R side. Pt reports occasional tingling and numbness in R UE since she had her stroke. Pt notes she has sleep difficulty at this time secondary to pain. pt reports she sleeps on a lounger, and wakes up every 2 hours. Pt notes she has had recent xrays which revealed calcific tendonitis and rotator cuff pathology. Pt reports R shoulder cracks and pops on her at times, but never locks up. pain is worse in the mornings, and patint notes she has difficulty with lifting her coffee pot. Pt notes most IADL's hurt, but she works through the pain anyways. R shoulder pain is 2/10 while sitting here in the clinic, elevates to 10/10 at worst. Pain R shoulder: Pain Intensity (Out of 10): 2 Pain Intensity Range: 10 Objective Objective: Neuro: B UE sensation is WNL to light touch. Palpation: Pt is very sore throughout the distribultion of the supraspinatus. No obvious swelling or deformity noted. ROM: L shoulder flex= 140, abd= 130, IR= WNL, ER= 10 degrees; R shoulder flex= 75, abd= 60, IR= WNL, ER= 30 degrees MMT: L shoulder flex= 10, abd= 18, IR= 15, ER= 14 #F; R shoulder flex= 4, abd= 8, IR= 8, ER= 7 #F Special testing: Pos empty can Balance/Special Test Scores Quick DASH Score: 31.8175 Goals Goal 1:: Pt will be I with HEP in 1-2 visits Goal Time Frame: 1 Week Rehabilitation Potential Physical Therapy Diagnosis: Pt has R shoulder pain, weakness, and limited ROM secondary to R shoulder impingement syndrome Rehabilitation Potential: Good Anticipated Interventions Patient/Client Instruction: Educate patient on: Condition and Plan of Care For the Purpose of:: To improve self management Therapeutic Exercise to Include: Strength training, Endurance training, Postural training, Active ROM and Scapular Strength/Stabilization For the Purpose of:: To decrease pain, To increase ROM and To improve muscle performance and motor function Text: Thank you for the opportunity to evaluate your patient. For Medicare and Medicare HMO plans, please review the plan of care and approve it. It will need to be FAXED BACK to us at [phone] for Medicare purposes. For Medicare only, by signing this I certify the plan of care. Please let me know if there are questions or concerns regarding this plan of care. Physician Signature: Date:
--- NOTE | 2024-09-01 15:03 | HP.PT.NRP ---
Patient Information Patient Information: ALEXUS TATE was seen in my office for initial evaluation on 06/18/24. The following Plan of Care was established for this patient: POC Established Initial Frequency: 1x/Week Initial Duration: 1-2weeks Anticipated Interventions Patient/Client Instruction: Educate patient on: Condition and Plan of Care For the Purpose of:: To improve self management Therapeutic Exercise to Include: Strength training, Endurance training, Postural training, Active ROM and Scapular Strength/Stabilization For the Purpose of:: To decrease pain, To increase ROM and To improve muscle performance and motor function Last Seen Last Seen: This patient was last seen in our office . Pertinent comments regarding their Physical therapy will appear below: Pt has not returned for greater than 30 days and is discontinued at this time. At this point I will be discontinuing this patient from physical therapy. I would be happy to see this patient again in the future if found appropriate by the physician. Thank you! Pito Solorzano, PT, ATC Balance/Gait/Functional tests Balance/Special Test Scores Quick DASH Score: 31.8182
== END 2024-06-26 19:00 | disposition home or self-care (01) ==
LOC: PT 18:00
PROVIDERS: PCP Family Medicine; Referring Provider Family Medicine; Visit Provider Family Medicine
DX: M25.511 Pain in right shoulder (principal)
CPT/HCPCS: 97110; 97161

== ENCOUNTER → 2024-11-27 | Outpatient (CLI) | payer MEDICARE, SELFPAY | END | disposition home or self-care (01) | LOC: MRI 13:16 | PROVIDERS: PCP Family Medicine; Referring Provider Ophthalmology; Visit Provider Ophthalmology | DX: H53.483 Generalized contraction of visual field, bilateral (principal) | CPT/HCPCS: 70553; A9575; A4216 ==